=== PATIENT | female | born 1975 | race Hispanic/Latino ===

== ENCOUNTER 2018-08-05 16:35 | Emergency (ER) | payer SELFPAY ==
[2018-08-05 18:41] LABS: Absolute Lymphocytes (CBC) 2.9 K/uL (0.7-4.9); Absolute Monocytes 0.5 K/uL (0.1-1.3); Absolute Neutrophil 7.8 K/uL (1.8-8.0); Basophils % 0.7 % (0-1.3); Eosinophils % 1.3 % (0-4.4); Lymphocytes % 25.3 % (15.3-44.8); MPV 10.1 fL (7.6-11.3); Monocytes % 4.6 % (3.3-12.3); RBC Red Blood Cell Count 4.81 M/uL (3.86-4.86)
[2018-08-05 18:59] LABS: ALT/SGPT 21 U/L (12-78); AST/SGOT 12 U/L (15-37); Albumin 3.8 g/dL (3.4-5.0); Alkaline Phosphatase 98 U/L (45-117); BUN Blood Urea Nitrogen 21 mg/dL (7-18); Bicarbonate 30 mmol/L (21-32); Bilirubin Direct < 0.1 mg/dL (0-0.2); Bilirubin Total 0.3 mg/dL (0.2-1.0); Glucose Level 118 mg/dL (74-106); Lipase 159 U/L (73-393); Potassium 3.3 mmol/L (3.5-5.1); Protein, Total 8.3 g/dL (6.4-8.2); Sodium Level 142 mmol/L (136-145)
--- NOTE | 2018-08-05 19:26 | RAD REPORT ---
EXAM DESCRIPTION: CT - Abdomen Pelvis W Contrast - 08/05/2018 7:19 pm CLINICAL HISTORY: Right lower quadrant pain, history of cholecystectomy and tubal ligation COMPARISON: CT June 2016 TECHNIQUE: Biphasic, helical CT imaging of the abdomen and pelvis was performed following 100 ml non -ionic IV contrast. Oral contrast was given. All CT scans are performed using dose optimization technique as appropriate and may include automated exposure control or mA/KV adjustment according to patient size. FINDINGS: No suspicious findings in the lung bases. The liver, spleen, and pancreas show no focal findings. Liver attenuation is borderline or mildly fat ty infiltrated. Cholecystectomy clips are present. No biliary tree dilatation. Symmetric renal function is seen with no hydronephrosis or suspicious renal mass. No pyelonephritis o r acute parenchymal process. No bladder abnormalities. No adrenal abnormalities. Uterus and ovaries s how no suspicious findings. There may be a small fibroid in the fundus of the uterus. No active proce ss seen. No dilated bowel loops or bowel wall thickening. Appendix is normal. No free air, free fluid or infla mmatory stranding. No hernia, mass or bulky lymphadenopathy. No suspicious bony findings. IMPRESSION: Contrast enhanced CT abdomen and pelvis showing no significant or suspicious finding. N o abnormality seen to explain right lower quadrant symptoms.
[2018-08-05 19:37] LABS: Urine Blood NEGATIVE (NEG); Urine Glucose NEGATIVE (NEG); Urine Protein NEGATIVE (NEG); Urine pH 7.5 (5.0-7.0)
--- NOTE | 2018-08-05 20:44 | EDPHYS ---
Physician Documentation [facility] Name: Soraida Zaragoza Age: 42 yrs Sex: Female : 1975 Arrival Date: 08/05/2018 Time: 16:38 Bed 20 Private MD: ED Physician Charli Clark HPI: 08/05 17:58 This 42 yrs old Female presents to ER via Ambulatory with complaints of Pelvic jmm Pain. 17:58 The patient presents with abdominal pain in the lower abdomen. Onset: The jmm symptoms/episode began/occurred gradually, 1 day(s) ago. The symptoms. This is a 42 year old female with no chronic medical conditions that presents to the ED with complaints of lower abdominal pain and pelvic pain. Patient states the pain is worsened with walking and radiates across her pelvis. Denies vaginal bleeding. Denies vomiting, denies diarrhea. . Historical: - Allergies: 16:40 No Known Allergies; sg - Home Meds: 16:40 None [Active]; sg - PMHx: 16:43 None; sg - PSHx: 16:40 Cholecystectomy; Tubal ligation; sg - Immunization history:: Adult Immunizations up to date. - Social history:: Smoking status: Patient/guardian denies using tobacco. - Ebola Screening: : Patient negative for fever greater than or equal to 101.5 degrees Fahrenheit, and additional compatible Ebola Virus Disease symptoms Patient denies exposure to infectious person Patient denies travel to an Ebola-affected area in the 21 days before illness onset No symptoms or risks identified at this time. ROS: 17:58 Constitutional: Negative for fever, chills, and weight loss, Cardiovascular: Negative jmm for chest pain, palpitations, and edema, Respiratory: Negative for shortness of breath, cough, wheezing, and pleuritic chest pain. 17:58 Abdomen/GI: Positive for abdominal pain. 17:58 : Positive for pelvic pain. 17:58 All other systems are negative. Exam: 17:58 Constitutional: This is a well developed, well nourished patient who is awake, alert, jmm and in no acute distress. Head/Face: atraumatic. Eyes: EOMI, no conjunctival erythema appreciated ENT: Moist Mucus Membranes Neck: Trachea midline, Supple Chest/axilla: Normal chest wall appearance and motion. Cardiovascular: Regular rate and rhythm. No edema appreciated Respiratory: Normal respirations, no respiratory distress appreciated 17:58 Abdomen/GI: Inspection: abdomen appears normal, Bowel sounds: normal, Palpation: soft, mild abdominal tenderness, in the suprapubic area, right lower quadrant and left lower quadrant. 17:58 Back: ROM is normal. 17:58 Musculoskeletal/extremity: ROM: intact in all extremities. 17:58 Skin: Appearance: Color: normal in color. 17:58 Neuro: Orientation: is normal, Mentation: is normal, Memory: is normal. 17:58 Psych: Behavior/mood is pleasant, cooperative. Vital Signs: 16:39 Pulse 80; Resp 17; Temp 98.2; Pulse Ox 100% ; Weight 82.1 kg; Height 4 ft. 11 in. sg (149.86 cm); Pain 8/10; 16:40 BP 152 / 92; sg 17:53 BP 145 / 80; Pulse 71; Resp 18; Pulse Ox 100% on R/A; aj1 18:42 BP 141 / 91; Pulse 74; Resp 18; Pulse Ox 100% ; aj1 19:30 BP 138 / 88; Pulse 73; Resp 16; Pulse Ox 100% on R/A; jb4 20:30 BP 151 / 78; Pulse 63; Resp 16; Pulse Ox 100% on R/A; jb4 16:39 Body Mass Index 36.56 (82.10 kg, 149.86 cm) sg MDM: 17:58 Patient medically screened. [facility] 20:42 Data reviewed: vital signs, nurses notes. Counseling: I had a detailed discussion with mark the patient and/or guardian regarding: the historical points, exam findings, and any diagnostic results supporting the discharge/admit diagnosis, radiology results, the need for outpatient follow up, to return to the emergency department if symptoms worsen or persist or if there are any questions or concerns that arise at home. ED course: Imaging studies negative. I discussed with the patient the need for further evaluation by NURSE TECH. Patient is otherwise given strict return precautions. patient understood and agrees with the plan of care. . 08/05 17:04 Order name: Urine Dipstick--Ancillary (enter results); Complete Time: 19:38 bd 08/05 17:04 Order name: Urine --Ancillary (enter results); Complete Time: 19:38 bd 08/05 17:59 Order name: Basic Metabolic Panel; Complete Time: 19:02 [facility] 08/05 17:59 Order name: CBC with Diff; Complete Time: 19:02 [facility] 08/05 17:59 Order name: Creatinine for Radiology; Complete Time: 19:02 [facility] 08/05 17:59 Order name: Hepatic Function; Complete Time: 19:02 [facility] 08/05 17:59 Order name: Lipase; Complete Time: 19:02 [facility] 08/05 17:59 Order name: IV Saline Lock; Complete Time: 18:27 [facility] 08/05 17:59 Order name: Labs collected and sent; Complete Time: 18:28 [facility] 08/05 17:59 Order name: CT Abd/Pelvis - W/Contrast; Complete Time: 19:34 [facility] 08/05 19:38 Order name: US Pelvis Complete [facility] Administered Medications: No medications were administered Disposition: 08/06 18:56 Co-signature as Attending Physician, Charli Clark MD I agree with the assessment and kdr plan of care. Disposition: 08/05/18 20:43 Discharged to Home. Impression: Abdominal and pelvic pain. - Condition is Stable. - Discharge Instructions: Pelvic Pain, Female. - Prescriptions for Ibuprofen 800 mg Oral Tablet - take 1 tablet by ORAL route every 8 hours As needed take with food; 30 tablet. - Medication Reconciliation Form, Thank You Letter, Antibiotic Education, Prescription Opioid Use form. - Follow up: Private Physician; When: 2 - 3 days; Reason: Recheck today's complaints, Continuance of care, Re-evaluation by your physician. Signatures: Dispatcher [employer] EDVictoriano Cabrera RN RN Charli Clark MD MD kdr Mickail, Joel, PA PA jmm Bryson, James RN RN jb4 Corrections: (The following items were deleted from the chart) 08/05 20:58 20:43 08/05/2018 20:43 Discharged to Home. Impression: Abdominal and pelvic pain. jb4 Condition is Stable. Forms are Medication Reconciliation Form, Thank You Letter, Antibiotic Education, Prescription Opioid Use. Follow up: Private Physician; When: 2 - 3 days; Reason: Recheck today's complaints, Continuance of care, Re-evaluation by your physician. [facility]
--- NOTE | 2018-08-05 20:44 | ER ---
Nurse's Notes [facility] Name: Soraida Zaragoza Age: 42 yrs Sex: Female : 1975 Arrival Date: 08/05/2018 Time: 16:38 Bed 20 Private MD: Diagnosis: Abdominal and pelvic pain Presentation: 08/05 16:42 Presenting complaint: Patient states: Right side lower quadrant abd pain described as sg sharp and stabbing that is worsened with activity and walking per the pt, pt reports that even standing at work today caused the pain to be much worse, pt denies any urinary symptoms at this time. Transition of care: patient was not received from another setting of care. Onset of symptoms was August 05, 2018. Risk Assessment: Do you want to hurt yourself or someone else? Patient reports no desire to harm self or others. Initial Sepsis Screen: Does the patient meet any 2 criteria? No. Patient's initial sepsis screen is negative. Does the patient have a suspected source of infection? Yes: Acute abdominal pain. Care prior to arrival: None. 16:42 Method Of Arrival: Ambulatory sg 16:42 Acuity: MIKAEL 3 sg Historical: - Allergies: 16:40 No Known Allergies; sg - Home Meds: 16:40 None [Active]; sg - PMHx: 16:43 None; sg - PSHx: 16:40 Cholecystectomy; Tubal ligation; sg - Immunization history:: Adult Immunizations up to date. - Social history:: Smoking status: Patient/guardian denies using tobacco. - Ebola Screening: : Patient negative for fever greater than or equal to 101.5 degrees Fahrenheit, and additional compatible Ebola Virus Disease symptoms Patient denies exposure to infectious person Patient denies travel to an Ebola-affected area in the 21 days before illness onset No symptoms or risks identified at this time. Screenin:53 Abuse screen: Denies threats or abuse. Denies injuries from another. Nutritional aj1 screening: No deficits noted. Tuberculosis screening: No symptoms or risk factors identified. 19:00 Fall Risk IV access (20 points). Total Peters Fall Scale indicates No Risk (0-24 pts). jb4 Assessment: 17:53 General: Appears in no apparent distress. uncomfortable, Behavior is calm, cooperative, aj1 appropriate for age. Pain: Complains of pain in right inguinal area and right iliac crest Pain does not radiate. Pain currently is 8 out of 10 on a pain scale. Quality of pain is described as sharp, stabbing, Aggravated by increased activity. Neuro: Level of Consciousness is awake, alert, obeys commands, Oriented to person, place, time, situation. Cardiovascular: Patient's skin is warm and dry. Respiratory: Airway is patent Respiratory effort is even, unlabored, Respiratory pattern is regular, symmetrical. GI: Abdomen is non-distended, Bowel sounds present X 4 quads. Abd is soft and non tender X 4 quads. Patient currently denies diarrhea, nausea, vomiting. : Reports urinary frequency, Denies burning with urination. EENT: No signs and/or symptoms were reported regarding the EENT system. Derm: No signs and/or symptoms reported regarding the dermatologic system. Skin is pink, warm \T\ dry. normal. Musculoskeletal: No signs and/or symptoms reported regarding the musculoskeletal system. Circulation, motion, and sensation intact. 18:42 Reassessment: Patient appears in no apparent distress at this time. No changes from aj1 previously documented assessment. Patient and/or family updated on plan of care and expected duration. Pain level reassessed. Patient is alert, oriented x 3, equal unlabored respirations, skin warm/dry/pink. 19:10 Reassessment: Patient appears in no apparent distress at this time. Patient and/or jb4 family updated on plan of care and expected duration. Pain level reassessed. Patient is alert, oriented x 3, equal unlabored respirations, skin warm/dry/pink. 20:00 Reassessment: Patient appears in no apparent distress at this time. Patient and/or jb4 family updated on plan of care and expected duration. Pain level reassessed. Patient is alert, oriented x 3, equal unlabored respirations, skin warm/dry/pink. 20:56 Reassessment: Patient appears in no apparent distress at this time. Patient and/or jb4 family updated on plan of care and expected duration. Pain level reassessed. Patient is alert, oriented x 3, equal unlabored respirations, skin warm/dry/pink. Vital Signs: 16:39 Pulse 80; Resp 17; Temp 98.2; Pulse Ox 100% ; Weight 82.1 kg; Height 4 ft. 11 in. sg (149.86 cm); Pain 8/10; 16:40 BP 152 / 92; sg 17:53 BP 145 / 80; Pulse 71; Resp 18; Pulse Ox 100% on R/A; aj1 18:42 BP 141 / 91; Pulse 74; Resp 18; Pulse Ox 100% ; aj1 19:30 BP 138 / 88; Pulse 73; Resp 16; Pulse Ox 100% on R/A; jb4 20:30 BP 151 / 78; Pulse 63; Resp 16; Pulse Ox 100% on R/A; jb4 16:39 Body Mass Index 36.56 (82.10 kg, 149.86 cm) ED Course: 16:38 Patient arrived in ED. as 16:39 Arm band placed on. 16:43 Triage completed. 17:28 Angeline Marquis, RN is Primary Nurse. [facility] 17:53 Patient has correct armband on for positive identification. Bed in low position. Call 1 light in reach. Side rails up X 1. 17:53 No provider procedures requiring assistance completed. [facility] 17:54 Jeffrey Byers PA is PHCP. [facility] 17:54 Charli Clark MD is Attending Physician. [facility] 18:00 Radiology exam delayed due to lab results not completed at this time. (BUN/Creatinine). [facility] 18:27 Radiology exam delayed due to lab results not completed at this time. (BUN/Creatinine). [facility] 18:28 Inserted saline lock: 22 gauge in right forearm, using aseptic technique. [facility] 18:28 Initial lab(s) drawn, by de, sent to lab. Inserted saline lock: [address] [facility] antecubital area, using aseptic technique. Blood collected. 18:53 Radiology exam delayed due to lab results not completed at this time. (BUN/Creatinine). 2 19:00 Pulse ox on. NIBP on. jb4 19:[address] via wheelchair. 2 19:19 CT Abd/Pelvis - W/Contrast In Process Unspecified. EDMS 19:43 Note: called an spoke to nurse. nurse will give patient water to fill bladder. . aa4 20:45 Pelvis Complete In Process Unspecified. EDMS 20:58 IV discontinued, intact, bleeding controlled, No redness/swelling at site. Pressure jb4 dressing applied. Administered Medications: No medications were administered Outcome: 20:43 Discharge ordered by . jmm 20:58 Discharged to home ambulatory. jb4 20:58 Condition: stable 20:58 Discharge instructions given to patient, Instructed on discharge instructions, follow up and referral plans. medication usage, Demonstrated understanding of instructions, follow-up care, medications, Prescriptions given X 1. 20:58 Patient left the ED. jb4 Signatures: Dispatcher [employer] EDAngeline Palmer RN RN aj1 Victoriano Mata RN Jeffrey Pelaez PA PA jmm Martinez, Amelia as Frazier, Amanda aa4 Bryson, James, RN RN jb4 Parish Chung Victoria 2
--- NOTE | 2018-08-05 21:04 | RAD REPORT ---
EXAM DESCRIPTION: US - Pelvis Complete - 08/05/2018 8:46 pm CLINICAL HISTORY: Pelvic pain COMPARISON: July 2007 TECHNIQUE: Transabdominal pelvic sonography was performed. FINDINGS: Endometrium is 5 mm in thickness. No endometrial mass or polyp. No myometrial mass is iden tifiable. Uterus is 11.0 x 5.0 x 6.2 cm. No myometrial mass. No fluid in the cul-de-sac. Both ovaries are identifiable. Doppler evaluation shows normal blood flow pattern. No dominant solid or cystic ovarian or adnexal finding. IMPRESSION: Negative transabdominal pelvic ultrasound.
== END 2018-08-05 20:58 | disposition home or self-care (01) ==
LOC: ER 16:35
DX: R10.2 Pelvic and perineal pain (principal)
CPT/HCPCS: 36415; 74177; 76856; 80048; 80076; 81003; 81025; 83690; 85025; 99284; Q9967

== ENCOUNTER 2019-04-16 10:55 | Emergency (ER) | payer SELFPAY ==
[2019-04-16 12:09] LABS: Absolute Lymphocytes (CBC) 2.1 K/uL (0.7-4.9); Basophils % 0.7 % (0-1.3); Hematocrit 38.7 % (36.0-45.0); MPV 10.2 fL (7.6-11.3); RBC Red Blood Cell Count 4.61 M/uL (3.86-4.86)
[2019-04-16 12:12] LABS: Protime INR 1.01
[2019-04-16 12:19] LABS: Urine Bacteria 20-50 /HPF (<20)
[2019-04-16 12:20] LABS: Urine Culture Reflex Order NOT NEEDED
[2019-04-16 12:29] LABS: ALT/SGPT 23 U/L (12-78); AST/SGOT 12 U/L (15-37); Albumin 3.6 g/dL (3.4-5.0); Alkaline Phosphatase 100 U/L (45-117); BUN Blood Urea Nitrogen 12 mg/dL (7-18); Bicarbonate 30 mmol/L (21-32); Bilirubin Direct < 0.1 mg/dL (0-0.2); Bilirubin Total 0.4 mg/dL (0.2-1.0); Glucose Level 112 mg/dL (74-106); Magnesium 2.3 mg/dL (1.8-2.4); NT PRO-BNP 25 pg/mL (<125); Potassium 3.4 mmol/L (3.5-5.1); Sodium Level 141 mmol/L (136-145); Troponin (Emerg Dept Use Only) < 0.02 ng/mL (0.0-0.045)
[2019-04-16 12:42] LABS: Urine Blood TRACE (NEG); Urine Glucose NEGATIVE (NEG); Urine Protein TRACE (NEG); Urine Specific Gravity 1.025 (1.005-1.030)
--- NOTE | 2019-04-16 12:47 | RAD REPORT ---
EXAM DESCRIPTION: RAD - Chest Single View - 04/16/2019 12:27 pm CLINICAL HISTORY: Chest pain COMPARISON: June 2016 TECHNIQUE: AP portable chest image was obtained 1212 hours . FINDINGS: Lungs are clear. Heart and vasculature are normal. No measurable pleural effusion and no p neumothorax. No acute bony abnormality seen. No acute aortic findings suspected. IMPRESSION: No acute cardiopulmonary process.
--- NOTE | 2019-04-16 13:41 | ER ---
Nurse's Notes [facility] Name: Soraida Zaragoza Age: 43 yrs Sex: Female : 1975 Arrival Date: 04/16/2019 Time: 10:58 Bed 17 Private MD: None, None Diagnosis: Chest pain, unspecified;Lower abdominal pain, unspecified Presentation: 04/16 11:20 Presenting complaint: Patient states: chest pain described as tightness and sharp since iw waking this morning at 0800, constant, also has LLQ and left flank pain described as sharp X 2 days, intermittent, +nausea, denies vomiting/diarrhea. Transition of care: patient was not received from another setting of care. Onset of symptoms was April 16, 2019. Risk Assessment: Do you want to hurt yourself or someone else? Patient reports no desire to harm self or others. Initial Sepsis Screen: Does the patient meet any 2 criteria? No. Patient's initial sepsis screen is negative. Does the patient have a suspected source of infection? No. Patient's initial sepsis screen is negative. Care prior to arrival: None. 11:20 Method Of Arrival: Ambulatory iw 11:20 Acuity: MIKAEL 3 iw TUBE TELLER: 11:22 LMP 04/04/2019 iw Historical: - Allergies: 11:22 No Known Allergies; iw - Home Meds: 11:22 None [Active]; iw - PMHx: 11:22 None; iw - PSHx: 11:22 Cholecystectomy; Tubal ligation; iw - Immunization history:: Adult Immunizations not up to date. - Social history:: Smoking status: Patient/guardian denies using tobacco. - Ebola Screening: : Patient negative for fever greater than or equal to 101.5 degrees Fahrenheit, and additional compatible Ebola Virus Disease symptoms Patient denies exposure to infectious person Patient denies travel to an Ebola-affected area in the 21 days before illness onset No symptoms or risks identified at this time. Screenin:40 Abuse screen: Denies threats or abuse. Nutritional screening: No deficits noted. em Tuberculosis screening: No symptoms or risk factors identified. Fall Risk None identified. Assessment: 11:40 General: Appears in no apparent distress. comfortable, Behavior is calm, cooperative, em appropriate for age, Denies fever. Pain: Complains of pain in left lower quadrant and chest Pain radiates to right scapular area and chest Quality of pain is described as pressure, Pain began this morning. Neuro: Level of Consciousness is awake, alert, obeys commands, Oriented to person, place, time, situation, Appropriate for age. Cardiovascular: Capillary refill < 3 seconds Patient's skin is warm and dry. Rhythm is sinus rhythm. Respiratory: Airway is patent Respiratory effort is even, unlabored, Respiratory pattern is regular, symmetrical. GI: Abdomen is flat, Abd is soft and non tender X 4 quads. Reports nausea, Patient currently denies constipation, diarrhea, vomiting. : Denies burning with urination, urinary frequency. Derm: Skin is intact, is healthy with good turgor, Skin is pink, warm \T\ dry. Musculoskeletal: Capillary refill < 3 seconds, Range of motion: intact in all extremities. 12:57 Reassessment: Patient appears in no apparent distress at this time. Patient and/or em family updated on plan of care and expected duration. Pain level reassessed. Patient is alert, oriented x 3, equal unlabored respirations, skin warm/dry/pink. 14:24 Reassessment: Patient appears in no apparent distress at this time. Patient and/or em family updated on plan of care and expected duration. Pain level reassessed. Patient is alert, oriented x 3, equal unlabored respirations, skin warm/dry/pink. Vital Signs: 11:22 BP 186 / 101; Pulse 79; Resp 16; Temp 98.1(O); Pulse Ox 100% on R/A; Weight 86.64 kg; iw Height 4 ft. 11 in. (149.86 cm); Pain 8/10; 12:00 BP 158 / 86; Pulse 73; Resp 18; Pulse Ox 100% on R/A; Pain 8/10; em 13:14 BP 157 / 79; Pulse 74; Resp 18; Pulse Ox 99% on R/A; em 14:19 BP 151 / 77; Pulse 74; Resp 18; Pulse Ox 99% on R/A; em 11:22 Body Mass Index 38.58 (86.64 kg, 149.86 cm) iw ED Course: 10:58 Patient arrived in ED. mr 10:58 None, None is Private Physician. mr 11:17 [facility]C [facility]. snw 11:17 Nelson Santillan MD is Attending Physician. snw 11:22 Triage completed. iw 11:22 Arm band placed on. iw 11:27 EKG done, by ED staff, reviewed by Hannah DOOLEY. 3 11:39 Daren Villa LVN is Primary Nurse. em 11:40 Patient has correct armband on for positive identification. Placed in gown. Bed in low em position. Call light in reach. Side rails up X2. Adult w/ patient. curriculum and assessment coordinator on. Pulse ox on. NIBP on. 11:40 Patient maintains SpO2 saturation greater than 95% on room air. em 11:55 Initial lab(s) drawn, by me, sent to lab. Inserted saline lock: 22 gauge in right em antecubital area, using aseptic technique. Blood collected. 12:27 X-ray completed. Portable x-ray completed in exam room. Patient tolerated procedure sw well. 14:18 No provider procedures requiring assistance completed. IV discontinued, intact, em bleeding controlled, No redness/swelling at site. Pressure dressing applied. Administered Medications: 14:10 Drug: TORadol - Ketorolac 15 mg Route: IVP; Site: right antecubital; tw2 14:23 Follow up: Response: No adverse reaction em Outcome: 13:40 Discharge ordered by MD. snw 14:18 Discharged to home ambulatory, with family. em 14:18 Condition: good 14:18 Discharge instructions given to patient, family, Instructed on discharge instructions, follow up and referral plans. medication usage, Demonstrated understanding of instructions, follow-up care, medications, Prescriptions given X 1. 14:24 Patient left the ED. em Signatures: Hannah Terry FNP-C FNP-[facility] Awilda Boone Daren Villa, WHEEL CLEANER WHEEL CLEANER em Christie Baxter, RN RN iw Alexandra Woodard Angle Anderson RN RN 2 Matilde Zhao 3
--- NOTE | 2019-04-16 13:42 | EDPHYS ---
Physician Documentation [facility] Name: Soraida Zaragoza Age: 43 yrs Sex: Female : 1975 Arrival Date: 04/16/2019 Time: 10:58 Bed 17 Private MD: None, None ED Physician Nelson Santillan HPI: 04/16 11:39 This 43 yrs old Female presents to ER via Ambulatory with complaints of Chest snw Pain, Flank Pain. 11:39 Onset: The symptoms/episode began/occurred suddenly, and became persistent. Associated snw signs and symptoms: Pertinent positives: abdominal pain, chest pain. Modifying factors: The patient symptoms are alleviated by nothing, the patient symptoms are aggravated by nothing. The patient has not experienced similar symptoms in the past. The patient has not recently seen a physician. 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 - Social history:: Smoking status: Patient/guardian denies using tobacco. - Ebola Screening: : Patient negative for fever greater than or equal to 101.5 degrees Fahrenheit, and additional compatible Ebola Virus Disease symptoms Patient denies exposure to infectious person Patient denies travel to an Ebola-affected area in the 21 days before illness onset No symptoms or risks identified at this time. ROS: 11:38 Eyes: Negative for injury, pain, redness, and discharge, ENT: Negative for injury, snw pain, and discharge, Neck: Negative for injury, pain, and swelling, Respiratory: Negative for shortness of breath, cough, wheezing, and pleuritic chest pain, Back: Negative for injury and pain, : Negative for injury, bleeding, discharge, and swelling, MS/Extremity: Negative for injury and deformity, Skin: Negative for injury, rash, and discoloration, Neuro: Negative for headache, weakness, numbness, tingling, and seizure. 11:38 Cardiovascular: Positive for chest pain, of the anterior aspect of right upper chest and anterior aspect of left upper chest. 11:38 Abdomen/GI: Positive for abdominal cramps, of the left lower quadrant. Exam: 11:37 Constitutional: This is a well developed, well nourished patient who is awake, alert, snw and in no acute distress. Head/Face: Normocephalic, atraumatic. Eyes: Pupils equal round and reactive to light, extra-ocular motions intact. Lids and lashes normal. Conjunctiva and sclera are non-icteric and not injected. Cornea within normal limits. Periorbital areas with no swelling, redness, or edema. ENT: Nares patent. No nasal discharge, no septal abnormalities noted. Tympanic membranes are normal and external auditory canals are clear. Oropharynx with no redness, swelling, or masses, exudates, or evidence of obstruction, uvula midline. Mucous membranes moist. Neck: Trachea midline, no thyromegaly or masses palpated, and no cervical lymphadenopathy. Supple, full range of motion without nuchal rigidity, or vertebral point tenderness. No Meningismus. Chest/axilla: Normal chest wall appearance and motion. Nontender with no deformity. No lesions are appreciated. 11:37 Respiratory: Lungs have equal breath sounds bilaterally, clear to auscultation and percussion. No rales, rhonchi or wheezes noted. No increased work of breathing, no retractions or nasal flaring. Abdomen/GI: Soft, non-tender, with normal bowel sounds. No distension or tympany. No guarding or rebound. No evidence of tenderness throughout. Back: No spinal tenderness. No costovertebral tenderness. Full range of motion. Skin: Warm, dry with normal turgor. Normal color with no rashes, no lesions, and no evidence of cellulitis. MS/ Extremity: Pulses equal, no cyanosis. Neurovascular intact. Full, normal range of motion. Neuro: Awake and alert, GCS 15, oriented to person, place, time, and situation. Cranial nerves II-XII grossly intact. Motor strength 5/5 in all extremities. Sensory grossly intact. Cerebellar exam normal. Normal gait. Psych: Awake, alert, with orientation to person, place and time. Behavior, mood, and affect are within normal limits. 11:37 Cardiovascular: Rate: normal, Rhythm: regular, Pulses: no pulse deficits are appreciated, Heart sounds: normal. 11:37 ECG was reviewed by the Attending Physician. Vital Signs: 11:22 BP 186 / 101; Pulse 79; Resp 16; Temp 98.1(O); Pulse Ox 100% on R/A; Weight 86.64 kg; iw Height 4 ft. 11 in. (149.86 cm); Pain 8/10; 12:00 BP 158 / 86; Pulse 73; Resp 18; Pulse Ox 100% on R/A; Pain 8/10; em 13:14 BP 157 / 79; Pulse 74; Resp 18; Pulse Ox 99% on R/A; em 14:19 BP 151 / 77; Pulse 74; Resp 18; Pulse Ox 99% on R/A; em 11:22 Body Mass Index 38.58 (86.64 kg, 149.86 cm) iw MDM: 11:19 Patient medically screened. snw 13:42 Data reviewed: vital signs, nurses notes. Data interpreted: Pulse oximetry: on room air snw is 99 %. Interpretation: normal. Counseling: I had a detailed discussion with the patient and/or guardian regarding: the historical points, exam findings, and any diagnostic results supporting the discharge/admit diagnosis, the presence of at least one elevated blood pressure reading (>120/80) during this emergency department visit, lab results, radiology results, the need for outpatient follow up, to return to the emergency department if symptoms worsen or persist or if there are any questions or concerns that arise at home. Response to treatment: the patient's symptoms have mildly improved after treatment. Special discussion: Based on the patient's Hx, exam, and Dx evaluation, there is no indication for emergent surgery or inpatient Tx. It is understood by the patient/guardian that if the Sx's persist or worsen they need to return immediately for re-evaluation. I have referred the patient to see his PCP for further evaluation of high blood pressure. Based on the history and exam findings, there is no indication for further emergent testing or inpatient evaluation. I discussed with the patient/guardian the need to see the primary care provider for further evaluation of the symptoms. 04/16 11:37 Order name: Basic Metabolic Panel snw 04/16 11:37 Order name: CBC with Diff snw 04/16 11:37 Order name: LFT's snw 04/16 11:37 Order name: Magnesium snw 04/16 11:37 Order name: NT PRO-BNP snw 04/16 11:37 Order name: PT-INR snw 04/16 11:37 Order name: Troponin (emerg Dept Use Only) [facility] 04/16 11:37 Order name: Urine Culture sn 04/16 11:37 Order name: Urine Microscopic Only [facility] 04/16 11:51 Order name: Urine Dipstick--Ancillary (enter results) eb 04/16 11:51 Order name: Urine --Ancillary (enter results) eb 04/16 12:10 Order name: CBC with Automated Diff; Complete Time: 12:11 EDMS 04/16 12:13 Order name: Protime (+INR); Complete Time: 12:16 EDMS 04/16 12:21 Order name: Urine Microscopic Only; Complete Time: 12:26 EDMS 04/16 11:37 Order name: XRAY Chest (1 view) [facility] 04/16 11:37 Order name: EKG; Complete Time: 11:39 snw 04/16 11:37 Order name: Cardiac monitoring; Complete Time: 11:59 snw 04/16 11:37 Order name: EKG - Nurse/Tech; Complete Time: 11:59 snw 04/16 11:37 Order name: IV Saline Lock; Complete Time: 11:59 snw 04/16 11:37 Order name: Labs collected and sent; Complete Time: 11:59 snw 04/16 11:37 Order name: O2 Per Protocol; Complete Time: 11:59 snw 04/16 12:29 Order name: Basic Metabolic Panel; Complete Time: 12:30 EDMS 04/16 12:29 Order name: Liver (Hepatic) Function; Complete Time: 12:30 EDMS 04/16 12:29 Order name: Troponin (Emerg Dept Use Only); Complete Time: 12:30 EDMS 04/16 12:29 Order name: NT PRO-BNP; Complete Time: 12:30 EDMS 04/16 12:29 Order name: Magnesium; Complete Time: 12:30 EDMS 04/16 12:42 Order name: Urine --Ancillary; Complete Time: 13:03 EDMS 04/16 12:42 Order name: Urine Dipstick-Ancillary; Complete Time: 13:03 EDMS 04/16 13:23 Order name: RAD; Complete Time: 13:23 EDMS 04/16 11:37 Order name: O2 Sat Monitoring; Complete Time: 12:00 snw 04/16 11:37 Order name: Urine Test (obtain specimen); Complete Time: 11:59 snw 04/16 11:37 Order name: Urine Dipstick-Ancillary (obtain specimen); Complete Time: 11:59 snw Administered Medications: 14:10 Drug: TORadol - Ketorolac 15 mg Route: IVP; Site: right antecubital; tw2 14:23 Follow up: Response: No adverse reaction em Disposition: 04/17 13:33 Co-signature as Attending Physician, Nelson Santillan MD I agree with the assessment and [facility] plan of care. Disposition: 04/16/19 13:40 Discharged to Home. Impression: Chest pain, unspecified, Lower abdominal pain, unspecified. - Condition is Stable. - Discharge Instructions: Abdominal Pain, Adult, Nonspecific Chest Pain, Hypertension, Heat Therapy, Form - Blood Pressure Record Sheet. - Prescriptions for Bentyl 20 mg Oral Tablet - take 1 tablet by ORAL route every 6 hours As needed; 20 tablet. - Work release form, Medication Reconciliation Form, Thank You Letter, Antibiotic Education, Prescription Opioid Use form. - Follow up: Emergency Department; When: As needed; Reason: Worsening of condition. Follow up: Private Physician; When: 2 - 3 days; Reason: Recheck today's complaints, Continuance of care, Re-evaluation by your physician. Signatures: Dispatcher [employer] Nelson Mendez MD MD cha Therrien, Shelly, BIOMASS PLANT MANAGER-C BIOMASS PLANT MANAGER-Csnw Daren Villa, MILLER HEAD ASSISTANT WET PROCESS MILLER HEAD ASSISTANT WET PROCESS em Christie Baxter, MABEL MONROE Angle Anderson RN RN tw2 Corrections: (The following items were deleted from the chart) 04/16 14:24 13:40 04/16/2019 13:40 Discharged to Home. Impression: Chest pain, unspecified; Lower em abdominal pain, unspecified. Condition is Stable. Forms are Medication Reconciliation Form, Thank You Letter, Antibiotic Education, Prescription Opioid Use. Follow up: Emergency Department; When: As needed; Reason: Worsening of condition. Follow up: Private Physician; When: 2 - 3 days; Reason: Recheck today's complaints, Continuance of care, Re-evaluation by your physician. snw
[2019-04-16] MEDS ORDERED: KETOROLAC 30 MG/ML INJ ONE (13:57)
[2019-04-16 14:35] VITALS: TEMP 98.1
[2019-04-16 14:36] VITALS: O2SAT 99
[2019-04-16 14:38] VITALS: BP 151/77
--- NOTE | 2019-04-17 12:47 | EKG ---
Test Date: 2019-04-16 Test Time: 11:27:34 Employment Programs Analyst: BECKY MEASUREMENT RESULTS: Intervals: Rate: 69 AL: 132 QRSD: 78 QT: 390 QTc: 417 [place]: P: 16 AL: 132 QRS: 37 T: 25 INTERPRETIVE STATEMENTS: Normal sinus rhythm Normal ECG No previous ECG available for comparison Electronically Signed On 04-17-19 12:44:46 TRACK LAYING SUPERVISOR by Lionel Alvarado
== END 2019-04-16 14:24 | disposition home or self-care (01) ==
LOC: ER 10:55
DX: R10.30 Lower abdominal pain, unspecified (principal)
CPT/HCPCS: 36415; 71045; 80048; 80076; 81003; 81015; 81025; 83735; 83880; 84484; 85025; 85610; 87086; 87088; 93005; 96374; 99285

== ENCOUNTER 2021-05-19 16:17 | Emergency (ER) | payer SELFPAY ==
--- OUTSIDE RECORDS SUMMARY | 2021-05-19 16:19 | XMS REPORT | Continuity of Care Document ---
:1975 Author Organization [facility] t Address [address] [place] [address] Care Team Providers Name Role Phone Clark Haley Primary Care Physician Clark DIEZ Attending Clinician Unavailable Clark Haley Attending Clinician Payers Payer Name Policy Type Policy Number Effective Date Expiration Date S ource [employer] [place] [id number] 2020 00:00:00 WOMEN Problems Condition Condition Condition Status Onset Resolution Last Treating Co mments Source Name Details Category Date Date Treatment Clinician Date Essential Essential Disease Active Uni vers hypertensi hypertensi 5-06 [place] [address] [place] [address] History of History of Disease Active U nivers tubal tubal 4-22 ity of ligation ligation 00:00: [address] Well woman Well woman Disease Active U nivers exam exam 4-22 ity of 00:00: [address] Allergies, Adverse Reactions, Alerts Allergy Allergy Status Severity Reaction(s) Onset Inactive Treating Comm ents Source Name Type Date Date Clinician NO KNOWN Drug Active Univers ALLERGIE Class ity of S [facility] Social History Social Habit Start Date Stop Date Quantity Comments Source Exposure to Not sure [facility] SARS-CoV-2 [facility] (event) [place] Tobacco use and 2020-10-11 2020-10-11 Never used Universit y of exposure 00:00:00 00:00:00 [facility] Alcohol intake 2020-10-11 2020-10-11 Ex-drinker University 00:00:00 00:00:00 (finding) [facility] Sex Ass[birth year] At [birth year] Universit y of 00:00:00 00:00:00 [facility] Smoking Status Start Date Stop Date Source Never smoker [facility] Medications Ordered Filled Start Stop Current Ordering Indication Dosage Frequency Signature Comments Components Source Medication Medication Date Date Medication? Clinician (SIG) Name Name fluconazole 2020- No [id number] 150mg Take 1 Univers (DIFLUCAN) 10-11 tablet by it[place] 150 mg 00:00[place] 04[place] now for 1 Medical dose. Branch fluconazole No [id number] 150mg Take 1 Univers (DIFLUCAN) 10-11 tablet by it[place] of 150 mg 00:00: 04:[place] tablet [place] :00 now for 1 Medical dose. Branch fluconazole No Yeast 150mg Take 1 U nivers (DIFLUCAN) 10-11 infection tablet by ity of 150 mg 00:00: 04:59 [place] tablet 00 :00 vagina now for 1 Medica l dose. Branch fluconazole No Yeast 150mg Take 1 U nivers (DIFLUCAN) 10-11 infection tablet by ity of 150 mg 00:00: 04:59 [place] mouth [place] tablet 00 :00 vagina now for 1 Medica l dose. Branch No known No Univers medications [facility] No known No Univers medications [facility] No known No Univers medications [facility] Vital Signs Vital Name Observation Time Observation Value Comments Source Systolic blood 2020-10-11 20:18:00 145 mm[Hg] Univer sity [facility] Systolic blood 2020-10-11 20:18:00 145 mm[Hg] Univer sity [facility] Diastolic blood 2020-10-11 20:18:00 89 mm[Hg] Unive rsity [facility] Diastolic blood 2020-10-11 20:18:00 89 mm[Hg] Unive rsity [facility] Heart rate 2020-10-11 20:12:00 93 /min Universi ty [facility] Heart rate 2020-10-11 20:12:00 93 /min [facility]i [facility] Body temperature 2020-10-11 20:10:00 36.89 Josephine Univ ers[facility] Respiratory rate 2020-10-11 20:10:00 16 /min Univ [facility] Body height 2020-10-11 20:10:00 149.9 cm [facility] Body weight 2020-10-11 20:10:00 89.982 kg [facility] BMI 2020-10-11 20:10:00 40.07 kg/m2 [facility] Body temperature 2020-10-11 20:10:00 36.89 Josephine Univ ersity of [facility] Respiratory rate 2020-10-11 20:10:00 16 /min Univ [facility] Body height 2020-10-11 20:10:00 149.9 cm [facility] Body weight 2020-10-11 20:10:00 89.982 kg [facility] BMI 2020-10-11 20:10:00 40.07 kg/m2 [facility] Systolic blood 2020-10-11 20:18:00 145 mm[Hg] Univer sity of pressure [facility] Systolic blood 2020-10-11 20:18:00 145 mm[Hg] Univer sity of pressure [facility] Diastolic blood 2020-10-11 20:18:00 89 mm[Hg] Unive rsity of pressure [facility] Diastolic blood 2020-10-11 20:18:00 89 mm[Hg] Unive rsity of pressure [facility] Heart rate 2020-10-11 20:12:00 93 /min [facility] Heart rate 2020-10-11 20:12:00 93 /min [facility] Body temperature 2020-10-11 20:10:00 36.89 Josephine Univ [facility] Respiratory rate 2020-10-11 20:10:00 16 /min Univ [facility] Body height 2020-10-11 20:10:00 149.9 cm [facility] Body weight 2020-10-11 20:10:00 89.982 kg [facility] BMI 2020-10-11 20:10:00 40.07 kg/m2 Universi ty of [facility] Branch Body temperature 2020-10-11 20:10:00 36.89 Josephine Univ ersity of [facility] Respiratory rate 2020-10-11 20:10:00 16 /min Univ ersity of [facility] Body height 2020-10-11 20:10:00 149.9 cm [facility] [place] [facility] [place] Body weight 2020-10-11 20:10:00 89.982 kg [facility] BMI 2020-10-11 20:10:00 40.07 kg/m2 Universi ty of [facility] Systolic blood 2020-09-27 14:20:00 172 mm[Hg] Univer sity of pressure [facility] Diastolic blood 2020-09-27 14:20:00 94 mm[Hg] Unive rsity of pressure [facility] Heart rate 2020-09-27 14:20:00 88 /min Universi ty of [facility] Body temperature 2020-09-27 14:20:00 36.67 Josephine Univ ersity [facility] Respiratory rate 2020-09-27 14:20:00 16 /min [facility] ersity of [facility] Body height 2020-09-27 14:20:00 149.9 cm Universi ty of [facility] Body weight 2020-09-27 14:20:00 90.946 kg Universi ty of [facility] BMI 2020-09-27 14:20:00 40.50 kg/m2 Universi ty of [facility] Procedures This patient has no known procedures. Plan of Care Planned Activity Planned Date Details Comments Source Future Scheduled 2023-09-28 Screening for University of Test 00:00:00 malignant neoplasm [place] [facility] of cervix Branch (procedure) [code = 405319020] Future Scheduled 2023-09-28 Screening for University of Test 00:00:00 malignant neoplasm [place] [facility] of cervix [facility] (procedure) [code = 614705226] Future Scheduled 2021-10-08 Screening for University of Test 00:00:00 malignant neoplasm [place] [facility] of breast Branch (procedure) [code = [id number]] Future Scheduled 2021-10-08 Screening for University of Test 00:00:00 malignant neoplasm [place] [facility] of breast Branch (procedure) [code = [id number]] Future Scheduled 2021-09-27 DTaP,Tdap,and Td Postponed from Unive rsity of Test 00:00:00 Vaccines (11/24/1995 [place] [facility] Tdap) [code = (Alternative Branch DTaP,Tdap,and Td Guidelines) Vaccines (1 - Tdap)] Future Scheduled 2021-09-27 Depression University of Test 00:00:00 screening [place] [facility] (procedure) [code Branch = [id number]] Future Scheduled 2021-09-27 DTaP,Tdap,and Td Postponed from Unive rsity of Test 00:00:00 Vaccines (11/24/1995 [facility] Tdap) [code = (Alternative Branch DTaP,Tdap,and Td Guidelines) Vaccines (1 - Tdap)] Future Scheduled 2021-09-27 Depression University of Test 00:00:00 screening [place] [facility] (procedure) [code Branch = [id number]] Future Scheduled 2021-02-06 INFLUENZA VACCINE Univer sity of Test 00:00:00 (Season Ended) [place] [facility] [code = INFLUENZA Branch VACCINE (Season Ended)] Future Scheduled 2021-02-06 INFLUENZA VACCINE Univer sity of Test 00:00:00 (Season Ended) [place] [facility] [code = INFLUENZA Branch VACCINE (Season Ended)] Future Scheduled 1994 Hepatitis C University of Test 00:00:00 screening [place] [facility] (procedure) [code Branch = [id number]] Future Scheduled 1994 Hepatitis C University of Test 00:00:00 screening [place] [facility] (procedure) [code Branch = [id number]] Future Scheduled 1992 SARS-CoV-2 University of Test 00:00:00 (COVID-19) Vaccine [place] [facility] (1) [code = Branch SARS-CoV-2 (COVID-19) Vaccine (1)] Future Scheduled 1992 SARS-CoV-2 University of Test 00:00:00 (COVID-19) Vaccine [place] [facility] (1) [code = Branch SARS-CoV-2 (COVID-19) Vaccine (1)] Encounters Start End Encounter Admission Attending Care Care Encounter Source Date/Time Date/Time Type Type Clinicians Facility Department ID 2020-10-12 2020-10-12 Outpatient R CHARY [facility] [id number] Univers 15:15:00 15:15:00 JACK [id number] ity o [facility] 2020-10-12 2020-10-12 [facility] [id number] Univers 15:15:00 15:15:00 JACK odell o [facility] 2020-10-11 2020-10-11 Office [facility] [id number] Univers 14:55:37 15:42:33 Visit Jack Rodas PROTOCOL MANAGER [id number] ity of REGIONAL [id number] [place] as MATERNAL [id number] [facility] ical & CHILD [address] [place] [address] 2020-10-11 2020-10-11 [address] [facility] [id number] Univers 14:45:00 14:45:00 JACK [id number] demetrioy o [facility] 2020-10-11 2020-10-11 Outpatient R CHARY, [facility] [id number] Univers 14:45:00 14:45:00 JACK odell [facility] 2020-10-08 2020-10-08 [facility] [id number] Univers 06:54:15 23:59:00 Encounter Jack Rodas SPECIALTY [id number] ity of [facility] [id number] [place] [id number] [place] [address] [place] [address] 2020-10-08 2020-10-08 Outpatient R CHARY, [facility] [id number] Univers 11:00:00 11:00:00 JACK [id number] demetrioy o [facility] 2020-10-08 2020-10-08 [facility] [id number] Univers 00:00:00 00:00:00 JACK odell o [facility] 2020-10-08 2020-10-08 [facility] [id number] Univers 00:00:00 00:00:00 JACK cruz [facility] 2020-09-27 2020-09-27 Office RADHA Diez [id number] [facility] 09:03:17 10:14:12 Visit Jack Rodas PROTOCOL MANAGER [id number] [id number] [place] MATERNAL [id number] Med ical & CHILD [address] [place] [address] 2020-09-27 2020-09-27 Outpatient R CH[facility] [id number] [facility] 09:15:00 09:15:00 JACK cruz [facility] Results This patient has no known results.
[2021-05-19] MEDS ORDERED: LIDOCAINE 1% MPF 5 ML VIAL ONE (16:48)
[2021-05-19] MEDS ORDERED: TETANUS & DIPHTHERIA TOX,ADULT 0.5 ML VIAL ONE (16:49)
--- NOTE | 2021-05-19 17:28 | ER ---
Nurse's Notes [facility] Name: Soraida Zaragoza Age: 45 yrs Sex: Female : 1975 Arrival Date: 05/19/2021 Time: 16:18 Bed 9 Private MD: Diagnosis: Laceration without foreign body of right little finger without damage to nail, initial encounter Presentation: 05/19 16:45 Chief complaint: Patient states: was washing dishes and accidently sliced her right iw pinky finger with a knife. Coronavirus screen: At this time, the client does not indicate any symptoms associated with coronavirus-19. Ebola Screen: Patient negative for fever greater than or equal to 101.5 degrees Fahrenheit, and additional compatible Ebola Virus Disease symptoms Patient denies exposure to infectious person. Patient denies travel to an Ebola-affected area in the 21 days before illness onset. No symptoms or risks identified at this time. Initial Sepsis Screen: Does the patient meet any 2 criteria? No. Patient's initial sepsis screen is negative. Does the patient have a suspected source of infection? No. Patient's initial sepsis screen is negative. Risk Assessment: Do you want to hurt yourself or someone else? Patient reports no desire to harm self or others. Onset of symptoms was May 19, 2021. 16:45 Method Of Arrival: Ambulatory iw 16:45 Acuity: MIKAEL 4 iw Historical: - Allergies: 16:46 No Known Allergies; iw - Home Meds: 16:46 Metformin Oral [Active]; iw - PMHx: 16:46 Hypertensive disorder; Diabetes mellitus; iw - Immunization history:: Last tetanus immunization: unknown. Vital Signs: 16:45 BP 143 / 96; Pulse 85; Resp 16; Pulse Ox 99% ; Weight 84.37 kg; Height 4 ft. 11 in. iw (149.86 cm); 16:45 Body Mass Index 37.57 (84.37 kg, 149.86 cm) iw ED Course: 16:18 Patient arrived in ED. am2 16:45 Jorje Stratton NP is PHCP. pm1 16:45 Isamar Marroquin MD is Attending Physician. pm1 16:46 Triage completed. iw 16:46 Arm band placed on. iw 16:47 Christie Baxter, MABEL is Primary Nurse. iw Administered Medications: 17:42 Drug: Lidocaine (1 %) 5 ml Volume: 5 ml; Route: Infiltration; 17:42 Drug: Tetanus-Diphtheria Toxoid Adult 0.5 ml {Child Care Provider: [employer]. Exp: 10/17/2022. Lot #: [id number]. } Route: IM; Site: left deltoid; 18:00 Follow up: Response: No adverse reaction iw Outcome: 17:26 Discharge ordered by . pm1 17:44 Patient left the ED. Signatures: Christie Baxter RN RN Jorje Stratton NP METAL [employer]TER pm1 Rosmery Bustamante
--- NOTE | 2021-05-19 17:28 | EDPHYS ---
Physician Documentation [facility] Name: Soraida Zaragoza Age: 45 yrs Sex: Female : 1975 Arrival Date: 05/19/2021 Time: 16:18 Bed 9 Private MD: ED Physician Ismaar Marroquin HPI: 05/19 16:46 This 45 yrs old Female presents to ER via Ambulatory with complaints of Finger pm1 Injury. 16:46 The patient or guardian reports a laceration, irregular, 1 cm(s). The complaints affect pm1 the palmar aspect of distal phalanx of right little finger. Context: The problem was sustained at home, resulted from Cut by clean knife while washing cutting board. Onset: The symptoms/episode began/occurred just prior to arrival. Modifying factors: The symptoms are alleviated by pressure to area, the symptoms are aggravated by nothing. Associated signs and symptoms: Pertinent negatives: cyanosis distally, decreased sensation distally, numbness distally, tingling distally. Severity of symptoms: in the emergency department the symptoms have improved. The patient has not experienced similar symptoms in the past. The patient has not recently seen a physician. Historical: - Allergies: 16:46 No Known Allergies; iw - Home Meds: 16:46 Metformin Oral [Active]; iw - PMHx: 16:46 Hypertensive disorder; Diabetes mellitus; iw - Immunization history:: Last tetanus immunization: unknown. ROS: 16:46 Constitutional: Negative for fever, chills, and weight loss, Cardiovascular: Negative pm1 for chest pain, palpitations, and edema, Respiratory: Negative for shortness of breath, cough, wheezing, and pleuritic chest pain. 16:46 Neuro: Negative for headache, weakness, numbness, tingling, and seizure. 16:46 MS/extremity: Positive for laceration, of the palmar aspect of distal phalanx of right little finger, Negative for decreased range of motion, deformity. 16:46 Skin: Positive for laceration(s), of the palmar aspect of distal phalanx of right little finger. 16:46 All other systems are negative. Exam: 16:46 Constitutional: This is a well developed, well nourished patient who is awake, alert, pm1 and in no acute distress. Head/Face: Normocephalic, atraumatic. 16:46 Cardiovascular: Exam negative for acute changes, Rate: normal, Rhythm: regular, Pulses: no pulse deficits are appreciated. 16:46 Respiratory: Exam negative for acute changes, respiratory distress, shortness of breath. 16:46 Musculoskeletal/extremity: Extremities: grossly normal except: noted in the palmar aspect of distal phalanx of right little finger: laceration. 16:46 Skin: injury, laceration(s), the wound is approximately 1 cm(s), with a depth of 0.5 cm(s), of the palmar aspect of distal phalanx of right little finger, that can be described as clean, no foreign body, with mild bleeding, v-shaped. 16:46 Neuro: Exam negative for acute changes, Orientation: is normal, Mentation: is normal, Motor: is normal, moves all fours. Vital Signs: 16:45 BP 143 / 96; Pulse 85; Resp 16; Pulse Ox 99% ; Weight 84.37 kg; Height 4 ft. 11 in. iw (149.86 cm); 16:45 Body Mass Index 37.57 (84.37 kg, 149.86 cm) iw Laceration: 17:24 Wound Repair of 1cm ( 0.4in ) subcutaneous laceration to palmar aspect of distal pm1 phalanx of right little finger. Irregularly shaped.. Distal neuro/vascular/tendon intact. Anesthesia: Digital block administered with 1 mls of 1% lidocaine. Wound prep: Extensive cleansing with hibiclenz by me, Wound irrigation with saline by me, Wound explored extensively, Copious irrigation. Skin closed with 7 5-0 Prolene using simple sutures and sterile technique. Dressed with Neosporin, 4x4's. Patient tolerated well. MDM: 17:24 Patient medically screened. pm1 17:24 Data reviewed: vital signs. Data interpreted: Pulse oximetry: on room air is 99 %. pm1 Interpretation: normal. Counseling: I had a detailed discussion with the patient and/or guardian regarding: the historical points, exam findings, and any diagnostic results supporting the discharge/admit diagnosis, the need for outpatient follow up, a family practitioner, suture removal in 10-14 days, to return to the emergency department if symptoms worsen or persist or if there are any questions or concerns that arise at home. 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 Exp: iw 10/17/2022. Lot #: [id number]. } Route: IM; Site: left deltoid; 18:00 Follow up: Response: No adverse reaction iw Disposition: 18:09 Co-signature as Attending Physician, Isamar Marroquin MD PA/[employer]IST's history reviewed, ma2 patient interviewed, and examined. I agree with assessment and care plan and confirm the diagnosis (es) above. Disposition Summary: 05/19/21 17:26 Discharge Ordered Location: Home pm1 Problem: new pm1 Symptoms: have improved pm1 Condition: Stable pm1 Diagnosis - Laceration without foreign body of right little finger without damage to nail, pm1 initial encounter Followup: pm1 - With: Emergency Department - When: As needed - Reason: Worsening of condition Followup: pm1 - With: Private Physician - When: 2 - 3 days - Reason: Recheck today's complaints, Continuance of care, Re-evaluation by your physician Discharge Instructions: - Discharge Summary Sheet pm1 - Laceration Care, Adult pm1 Forms: - Medication Reconciliation Form pm1 - Thank You Letter pm1 - Antibiotic Education pm1 - Prescription Opioid Use pm1 Prescriptions: - Cephalexin 500 mg Oral Capsule - take 1 capsule by ORAL route every 6 hours for 10 days; 40 capsule; Refills: 0, pm1 Product Selection Permitted Signatures: Christie Baxter, Jorje Drake RN, NP [employer]IST pm1 Isamar Marroquin MD MD mn2
[2021-05-19 17:54] VITALS: BP 143/96; O2SAT 99
== END 2021-05-19 17:44 | disposition home or self-care (01) ==
LOC: ER 16:17
PROC: 0JQJ0ZZ Repair Right Hand Subcutaneous Tissue and Fascia, Open Approach (ICD-10-PCS; principal; 2021-05-19)
DX: S61.216A Laceration without foreign body of right little finger without damage to nail, initial encounter (principal); W26.0XXA Contact with knife, initial encounter; Y93.G1 Activity, food preparation and clean up; I10 Essential (primary) hypertension; E11.9 Type 2 diabetes mellitus without complications; Z23 Encounter for immunization
CPT/HCPCS: 90471; 90714; 99282

== ENCOUNTER 2021-10-28 11:08 | Emergency (ER) | payer OTHER, SELFPAY ==
--- OUTSIDE RECORDS SUMMARY | 2021-10-28 11:12 | XMS REPORT | Continuity of Care Document ---
:1975 Author Organization [facility] t Address [address] [place] [address] Care Team Providers Name Role Phone Clark Haley Primary Care Physician Clark DIEZ Attending Clinician Unavailable Clark Haley Attending Clinician Payers Payer Name Policy Type Policy Number Effective Date Expiration Date S ource [employer] [place] [id number] 2020 00:00:00 WOMEN Problems Condition Condition Condition Status Onset Resolution Last Treating Co mments Source Name Details Category Date Date Treatment Clinician Date Essential Essential Disease Active Uni vers hypertensi hypertensi 5-06 [place] [address] [place] [address] History of History of Disease Active U nivers tubal tubal 4-22 ity of ligation ligation 00:00: [address] Well woman Well woman Disease Active U nivers exam exam 4-22 ity of 00:00: [address] Allergies, Adverse Reactions, Alerts Allergy Allergy Status Severity Reaction(s) Onset Inactive Treating Comm ents Source Name Type Date Date Clinician NO KNOWN Drug Active Univers ALLERGIE Class ity of S [facility] Social History Social Habit Start Date Stop Date Quantity Comments Source Exposure to Not sure [facility] SARS-CoV-2 [facility] (event) [place] Tobacco use and 2020-10-11 2020-10-11 Never used Universit y of exposure 00:00:00 00:00:00 [facility] Alcohol intake 2020-10-11 2020-10-11 Ex-drinker [facility] 00:00:00 00:00:00 (finding) [facility] Sex Ass[birth year] At [birth year] Universit y of 00:00:00 00:00:00 [facility] Smoking Status Start Date Stop Date Source Never smoker General acute hospital Medications Ordered Filled Start Stop Current Ordering Indication Dosage Frequency Signature Comments Components Source Medication Medication Date Date Medication? Clinician (SIG) Name Name fluconazole 2020- No Yeast 150mg Take 1 U nivers (DIFLUCAN) 10-11 infection tablet by ity of 150 mg 00:00: 04:59 [place] mouth [place] tablet 00 :00 vagina now for 1 Medica l dose. Branch fluconazole 2020- No [id number] 150mg Take 1 Univers (DIFLUCAN) 10-11 tablet by ity of 150 mg 00:00: 04:[place] tablet [place] :00 now for 1 Medical dose. Branch fluconazole 2020- No [id number] 150mg Take 1 Univers (DIFLUCAN) 10-11 tablet [...] dose. Branch No known No Univers medications [facility] No known No Univers medications [facility] No known No Univers medications [facility] Vital Signs Vital Name Observation Time Observation Value Comments Source Systolic blood 2020-10-11 20:18:00 145 mm[Hg] Univer sity [facility] Diastolic blood 2020-10-11 20:18:00 89 mm[Hg] Unive rsity [facility] Systolic blood 2020-10-11 20:18:00 145 mm[Hg] Univer sity [facility] Diastolic blood 2020-10-11 20:18:00 89 mm[Hg] Unive rsity [facility] Heart rate 2020-10-11 20:12:00 93 /min [facility] [place] [facility] Heart rate 2020-10-11 20:12:00 93 /min [facility] Body temperature 2020-10-11 20:10:00 36.89 Yasir Univ [facility] Respiratory rate 2020-10-11 20:10:00 16 /min [facility] Body height 2020-10-11 20:10:00 149.9 cm [facility] Body weight 2020-10-11 20:10:00 89.982 kg [facility] BMI 2020-10-11 20:10:00 40.07 kg/m2 [facility] Body temperature 2020-10-11 20:10:00 36.89 Yasir [facility] Respiratory rate 2020-10-11 20:10:00 16 /min [facility] Body height 2020-10-11 20:10:00 149.9 cm [facility] Body weight 2020-10-11 20:10:00 89.982 kg [facility] BMI 2020-10-11 20:10:00 40.07 kg/m2 [facility] Systolic blood 2020-10-11 20:18:00 145 mm[Hg] Univer sity of pressure [facility] Diastolic blood 2020-10-11 20:18:00 89 mm[Hg] Unive rsity of pressure [facility] Systolic blood 2020-10-11 20:18:00 145 mm[Hg] Univer sity of pressure [facility] Diastolic blood 2020-10-11 20:18:00 89 mm[Hg] Unive rsity of [facility] Heart rate 2020-10-11 20:12:00 93 /min [facility] Heart rate 2020-10-11 20:12:00 93 /min [facility] Body temperature 2020-10-11 20:10:00 36.89 Yasir [facility] Respiratory rate 2020-10-11 20:10:00 16 /min Univ [facility] Body height 2020-10-11 20:10:00 149.9 cm [facility] Body weight 2020-10-11 20:10:00 89.982 kg [facility] BMI 2020-10-11 20:10:00 40.07 kg/m2 [facility] Body temperature 2020-10-11 20:10:00 36.89 Yasir [facility] Respiratory rate 2020-10-11 20:10:00 16 /min Univ ersity of [facility] Body height 2020-10-11 20:10:00 149.9 cm [facility] Body weight 2020-10-11 20:10:00 89.982 kg [facility] BMI 2020-10-11 20:10:00 40.07 kg/m2 Universi ty of [facility] Systolic blood 2020-09-27 14:20:00 172 mm[Hg] Univer sity of pressure [facility] Diastolic blood 2020-09-27 14:20:00 94 mm[Hg] Unive rsity of pressure [facility] Heart rate 2020-09-27 14:20:00 88 /min Universi ty of [facility] Body temperature 2020-09-27 14:20:00 36.67 Yasir Univ ersity [facility] Respiratory rate 2020-09-27 14:20:00 16 /min [facility] Body height 2020-09-27 14:20:00 149.9 cm [facility] [place] [facility] [place] Body weight 2020-09-27 14:20:00 90.946 kg Universi ty of [facility] BMI 2020-09-27 14:20:00 40.50 kg/m2 Universi ty [facility] Procedures This patient has no known procedures. Plan of Care Planned Activity Planned Date Details Comments Source Future Scheduled 2023-09-28 Screening for University of Test 00:00:00 malignant neoplasm [place] [facility] of cervix [facility] (procedure) [code = 537687508] Future Scheduled 2023-09-28 Screening for University of Test 00:00:00 malignant neoplasm [place] [facility] of cervix [facility] (procedure) [code = 916727260] Future Scheduled 2021-10-08 Screening for University of Test 00:00:00 malignant neoplasm [place] [facility] of breast Branch (procedure) [code = 857320597] Future Scheduled 2021-10-08 Screening for University of Test 00:00:00 malignant neoplasm [place] [facility] of breast Branch (procedure) [code = 927046695] Future Scheduled 2021-09-27 DTaP,Tdap,and Td Postponed from Unive rsity of Test 00:00:00 Vaccines (11/24/1995 [place] [facility] Tdap) [code = (Alternative Branch DTaP,Tdap,and Td Guidelines) Vaccines (1 - Tdap)] Future Scheduled 2021-09-27 Depression University of Test 00:00:00 screening [place] [facility] (procedure) [code Branch = 094302571] Future Scheduled 2021-09-27 DTaP,Tdap,and Td Postponed from Unive rsity of Test 00:00:00 Vaccines (11/24/1995 [place] [facility] Tdap) [code = (Alternative Branch DTaP,Tdap,and Td Guidelines) Vaccines (1 - Tdap)] Future Scheduled 2021-09-27 Depression University of Test 00:00:00 screening [place] [facility] (procedure) [code Branch = 516012184] Future Scheduled 2021-02-06 INFLUENZA VACCINE Univer sity of Test 00:00:00 (Season Ended) [place] [facility] [code = INFLUENZA Branch VACCINE (Season Ended)] Future Scheduled 2021-02-06 INFLUENZA VACCINE Univer sity of Test 00:00:00 (Season Ended) [place] [facility] [code = INFLUENZA Branch VACCINE (Season Ended)] Future Scheduled 1994 Hepatitis C University of Test 00:00:00 screening [place] [facility] (procedure) [code Branch = 829524890] Future Scheduled 1994 Hepatitis C University of Test 00:00:00 screening [facility] (procedure) [code Branch = 941915331] Future Scheduled 1992 SARS-CoV-2 University of Test 00:00:00 (COVID-19) Vaccine [place] [facility] (1) [code = Branch SARS-CoV-2 (COVID-19) Vaccine (1)] Future Scheduled 1992 SARS-CoV-2 University of Test 00:00:00 (COVID-19) Vaccine [place] [facility] (1) [code = Branch SARS-CoV-2 (COVID-19) Vaccine (1)] Encounters Start End Encounter Admission Attending Care Care Encounter Source Date/Time Date/Time Type Type Clinicians Facility Department ID 2020-10-12 2020-10-12 Outpatient R AKINSIPE, [facility] [id number] Univers 15:15:00 15:15:[id number] [facility] 2020-10-12 2020-10-12 Outpatient R AKINSIPE, [facility] [id number] Univers 15:15:00 15:15:00 [facility] 2020-10-11 2020-10-11 Office [facility] [id number] Univers 14:55:37 15:42:33 Visit Sirena Rodas RADIO OPERATOR [id number] ity of REGIONAL [id number] [place] as MATERNAL [id number] [facility] ical & CHILD [address] [place] [address] 2020-10-11 2020-10-11 Outpatient R AKINSIPE, [facility] [id number] Univers 14:45:00 14:45:00 SIRENA [id number] [facility] 2020-10-11 2020-10-11 Outpatient R AKINSIPE, [facility] [id number] Univers 14:45:00 14:45:00 SIRENA [facility] 2020-10-08 2020-10-08 [facility] [id number] Univers 06:54:15 23:59:00 Encounter Sirena Rodas SPECIALTY [id number] ity of [facility] [id number] [id number] Id roberta [place] [address] [place] 2020-10-08 2020-10-08 Outpatient R AKINSIPE, [facility] [id number] Univers 11:00:00 11:00:00 SIRENA [id number] [facility] 2020-10-08 2020-10-08 Outpatient R AKINSIPE, [facility] [id number] Univers 00:00:00 00:00:00 [facility] 2020-10-08 2020-10-08 [facility] [id number] Univers 00:00:00 00:00:00 SIRENA cruz [facility] 2020-09-27 2020-09-27 Office Carley [facility] [id number] [facility] 09:03:17 10:14:12 Visit Sirena Rodas RADIO OPERATOR [id number] ity [facility] [id number] [place] MATERNAL [id number] Med ical & CHILD [address] [place] [address] 2020-09-27 2020-09-27 Outpatient R CARLEY [facility] [id number] [facility] 09:15:00 09:15:00 SIRENADOREEN [place] anthony [facility] Results Test Description Test Time Test Comments Results Result Comments Source PAP TEST, THINPREP, IMAGED 2021-08-22 14:45:58 Test Item Value Reference Range Interpretation Comme nts SOURCE: (test code = Cervical/Endocervical 8001) SLIDES: (test code = 1 8011) LMP: (test code = 07/26/2021 8021) SPECIMEN ADEQUACY: (NOTE) Sati sfactory for (test code = 30717) evaluati on. Endocervical cells/transform ation zone component not i dentified. INTERPRETATION: NILM/NO EPITH. ABNORMALITY;SEE (test code = 81093) BELOW -------- NEGATIVE FOR INTRAEPITHE LIAL LESION OR MALIGNANCY ( NILM) -- OTHER COMMENTS: (NOTE) Shift in chantal ra suggestive of (test code = 8081) bacterial vaginosis. MARINE EQUIPMENT SALES ENGINEER: SAMEERA Villalobos (ASCP) (test code = 8101) LOCATION: (test code (NOTE) Specime ns processed and = 08432) interpreted at [facility], [address] [facility] [place] [address], Phone: , CLIA: [id number] CPT: (test code = (NOTE) 79914 U NLESS OTHERWISE 8140) INDICATED, COMP UTER AIDED AND CYTOTECHNOL OGIST SCREENING PERFO RMED. The Pap test is a screening test with an in herent, but low probabi lity of error. Your pa evan should be reminded to consult you immediately if she experiences any suspicious signs or symp toms, regardless of h er Pap test result. An alternate report format c ontaining images or conso lidated prior Pap histo ry is available as ap plicable. HPV HIGH RISK WITH GENOTYPE, [id number] 14:39:41 Test Item Value Reference Range Interpretation Comments HPV HIGH RISK INTERP NEGATIVE NEGATIVE (test code = 13090) HPV 16 (test code = NEGATIVE 36957) HPV 18 (test code = NEGATIVE 90527) HPV, HR, OTHER NEGATIVE Testing GENOTYPES (test code methodo logy is real-time = 72053) PCR utilizing h ydrolysis probes with the Tresa Kev 480 0 system. The test indiv idually detects genot ypes 16 and 18, as well as the other 12 high r isk types (31,33,35,39,45 ,51,52,56 ,58,59,66,68). The expected re sult is negative. A negative result does not rule out the presence of HPV not included in the genotype set, a low level of infect ion or specimen can pling error. U NLESS OTHERWISE INDIC ATED, ALL TESTING PERFORM ED [facility], I [place] [address] [place] [address] LABORATORY DIRE CTOR: HENRIK GARCIA M.D. CLIA NUMBER [id number] CAP ACCREDITATION N O. [id number] CT/NG, TMA, [id number] 18:05:49 Test Item Value Reference Range Interpretation Comments GONORRHEA, TMA NEGATIVE NEGATIVE Assay m ethodology is (test code = nucleic acid am plification 50984) by transcriptio n mediated amplif ication (TMA) utilizing the Aptima Combo 2 Assay. CHLAMYDIA, TMA NEGATIVE NEGATIVE Assay m ethodology is (test code = nucleic acid am plification 32570) by transcriptio n mediated amplif ication (TMA) utilizing the Aptima Combo 2 Assay. VAGINAL PATHOGENS DNA [id number] 14:37:44 Test Item Value Reference Range Interpretation Comments MEGAN SPECIES (test NEGATIVE NEGATIVE code = ) G. VAGINALIS (test POSITIVE NEGATIVE A code = ) T. VAGINALIS (test NEGATIVE NEGATIVE UN LESS OTHERWISE code = ) INDICATED, ALL TESTING PERFORMED [facility] [address] [place] [address] 4 LABORATORY DIR MAURICE: HENRIK GARCIA M.D. CLIA NUMBER [id number] CAP ACCREDITATION N O. [id number] HIV 1/2 4TH GEN, RFLX [id number] 05:56:50 Test Item Value Reference Range Interpretation Comments HIV 1/2 4TH GEN, RFLX CONF (test NON-REACTIVE NON-REACTIVE code = 3514) HEPATITIS PANEL, [id number] 05:56:50 Test Item Value Reference Range Interpretation Comments HEPATITIS A IgM (test NON-REACTIVE NON-REACTIVE code = 77750) HEPATITIS B CORE IgM NON-REACTIVE NON-REACTIVE (test code = 4644) HEPATITIS B SURF AG NON-REACTIVE NON-REACTIVE (test code = 2739) HEPATITIS C ANTIBODY NON-REACTIVE NON-REACTIVE (test code = 4675) INTERPRETATION (NOTE) Hepatiti s A HEPATITIS A: (test code sero logy shows no = 2552) evidence of acu te hepatitis A. INTERPRETATION (NOTE) Hepatiti s B HEPATITIS B: (test code sero logy shows no = 65696) evidence of acu te hepatitis B and no indication of exposure to hepatitis B vir us in the previous justyn eight months. INTERPRETATION (NOTE) Hepatiti s C HEPATITIS C: (test code sero logy shows no = 53205) evidence of exposure to hepatitisC viru s at this time. It can take up to 12 months after exposure tothe hepatitis C vir us for antibodies to become detectab le in the bloo d in certain patients. [id number] 05:32:35 Test Item Value Reference Range Interpretation Comments RPR RESULT (test code = NON-REACTIVE NON-REACTIVE 3501) RPR TITER (test code = 3500) NOT INDIC. TITER NOT INDIC. LIPID [id number] 23:59:41 Test Item Value Reference Range Interpretation Comments CHOLESTEROL (test 192 MG/DL <200 code = 2210) TRIGLYCERIDES (test 115 MG/DL <150 code = 2232) HDL CHOLESTEROL (test 47 MG/DL >39 code = 2220) CALC LDL CHOL (test 122 MG/DL <100 H NOTE: C ALCULATED LDL code = 2237) IS BASED ON RONI-CROW METHOD WHICHINCLUDES ADJUSTABLE TRIGLYCERIDE:VL DL CHOLESTEROL RAT IO.THIS FACTOR VARIES B Y MEASURED TRIGLY CERIDE AND NON-HDLCHOL ESTEROL CONCENTRATIONS WITH INCREASED CALCU LATED LDL SEENIN HIGH ER TRIGLYCERIDE OR LOWER NON-HDL SPECIME NS. FOR MOREINFORMATION , SEE CLIENT ANNOUNCE MENT AT [email or web address] RISK RATIO LDL/HDL 2.60 RATIO <3.22 (test code = 2238) COMPREHENSIVE METABOLIC [id number] 23:59:41 Test Item Value Reference Range Interpretation Comments GLUCOSE (test code = 170 MG/DL 70-99 H 2216) BUN (test code = 18 MG/DL 6-20 2207) CREATININE (test 0.60 MG/DL 0.60-1.30 EFFECTIVE code = 2214) 05/20/2021, [facility] HAS IMPLEMENTED THE NKF-ASN RECOMME NDED KD-EPI EGF R REFIT CALCULATI ON THAT DOES NOT I NCLUDE A COEFFICIENT FORRACE. FOR MO RE INFORMATION, SE E ANNOUNCEMENT [email or web address] eGFR (2020 CKD-EPI) 113 >60 (test code = 95186) ML/MIN/1.73 CALC BUN/CREAT (test 30 RATIO 6-28 H code = 2235) SODIUM (test code = 141 MEQ/L 067-255 4546) POTASSIUM (test code 4.2 MEQ/L 3.5-5.4 = 2227) CHLORIDE (test code 103 MEQ/L 95-107 = 2214) CARBON DIOXIDE (test 24 MEQ/L 19-31 code = 220) CALCIUM (test code = 9.3 MG/DL 8.5-10.5 2208) PROTEIN, TOTAL (test 7.4 G/DL 6.1-8.3 code = 2229) ALBUMIN (test code = 4.1 G/DL 3.5-5.2 2200) CALC GLOBULIN (test 3.3 G/DL 1.9-3.7 code = 2240) CALC A/G RATIO (test 1.2 RATIO 1.0-2.6 code = 2234) BILIRUBIN, TOTAL 0.4 MG/DL See_Comment [Automated message] (test code = 2207) The syste m which generated this result transmitted ref erence range: <=1.2. T he reference range was not used to int erpret this result as normal/abnormal . ALKALINE PHOSPHATASE 82 U/L 40-115 (test code = 2204) AST (test code = 18 U/L 9-40 2217) ALT (test code = 23 U/L 5-40 UNLE SS 2218) OTHERWISE INDIC ATED, ALL TESTING PER FORMED ATCLINICAL PATH [facility], [place] [address] [place] [address] LABORATORY DIRE CTOR: HENRIK GARCIA M.D. CLIA NUMBER [id number] CAP ACCREDITATION N O. [id number] HEMOGLOBIN [id number] 03:23:02 Test Item Value Reference Range Interpretation Comments HEMOGLOBIN A1c (test 7.6 % 4.2-5.6 H ANGOLAN DIABETES code = 97607) ASSOCIATION IDELINES FOR HGB A1C: PREDIABETES/INC REASED RISK . . . . . . . 5.7 -6.4% DIAGNOSIS OF D IABETES . . . . . . . . . > =6.5% WITH CONFIRM ATION OR APPROPRIATE SYM PTOMS NOTE: ASSAY MAY BE AFFECTED BY HEMOGLOBINOP ATHIES (SICKLE YASIR L ANEMIA, S-C DISEASE, OTHERS ) OR ARTIFICIALLY LO WERED BY DECREASED RED C ELL SURVIVAL (HEMOLYTIC ANEM IAS, BLOOD LOSS, ETC.) . CONSIDER ALTERNATE TESTI NG OR LABORATORY CONS ULTATION.
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
[2021-10-28 14:15] VITALS: BP 157/103; TEMP 98.2; O2SAT 99
== END 2021-10-28 14:10 | disposition home or self-care (01) ==
LOC: ER 11:08
DX: M54.30 Sciatica, unspecified side (principal); E11.9 Type 2 diabetes mellitus without complications; I10 Essential (primary) hypertension
CPT/HCPCS: 72100; 99282

== ENCOUNTER 2024-05-17 10:44 | Emergency (ER) | payer OTHER, SELFPAY ==
--- OUTSIDE RECORDS SUMMARY | 2024-05-17 10:49 | XMS REPORT | Continuity of Care Document ---
Author Name Unknown Address [address] [place] [address] 1 [address] [id number] [facility] Address [address] [facility] 1 [address] [place] [address] Care Team Providers Care Grease Man Name Role Phone Julia Reed NP Primary Care Physician PATSY VOGT Attending Clinician Unavailab le [email or web address]_S Attending Clinician Unavaila ble SIRENA DIEZ Attending Clinician Unavail able Sirena Haley Attending Clinician + [email or web address]_S Admitting Clinician Unavaila ble Payers Payer Name Policy Type Policy Number Effective Date Expirati on Date Source DANIEL NELSON [address] ON/OFF 9 [id number] 2023 00:00:00 [facility] [place] [facility] [id number] 2020 00:00:00 Problems Condition Name Condition Details Condition Category Status Onset Date Resolution Date Last Treatment Date Treating Clinician Comments Source Essential hypertensi on, benign Essential hypertensi on, benign Disease Active 10-11 00:00: 00 [facility] History of tubal ligation History of tubal ligation Disease Active 09-27 00:00: 00 [facility] Well woman exam Well woman exam Disease Active 09-27 00:00: 00 [facility] Allergies, Adverse Reactions, Alerts Allergy Name Allergy Type Status Severity Reaction(s) Onset Date Inactive Date Treating Clinician Comments Source none (Not Checked) Propensi ty to adverse reaction to drug Active 2023-06 00:00: 00 Daryn Bernard NO KNOWN ALLERGIE S Drug Class Active [facility] Social History Social Habit Start Date Stop Date Quantity Comments Source Exposure to SARS-CoV-2 (event) Not sure [facility] Tobacco use and exposure 2020-10-11 00:00:00 2020-10-11 00:00:00 Never used [facility] Alcohol intake 2020-10-11 00:00:00 2020-10-11 00:00:00 Ex-drinker (finding) [facility] Sex Assigned At 1975 00:00:00 1975 00:00:00 [facility] Smoking Status Start Date Stop Date Source Never smoker [facility] Medications Ordered Medication Name Filled Medication Name Start Date Stop Date Current Medication? Ordering Clinician Indication Dosage Frequency Signature (SIG) Comments Components Source pioglitazon e 45 mg tablet 2023-06 00:00: 00 Yes 1mg Daryn Bernard amlodipine 5 mg tablet 2023-06 00:00: 00 Yes 1mg Daryn Bernard lisinopril 30 mg tablet 2023-06 00:00: 00 Yes 1mg Daryn Bernard glipizide 10 mg tablet 2023-06 00:00: 00 Yes 1mg Daryn Bernard amlodipine 5 mg tablet 2023-06 00:00: 00 Yes 1mg Daryn Bernard hydrochloro thiazide 12.5 mg tablet 2023-06 00:00: 00 Yes 1mg Daryn Bernard atorvastati n 10 mg tablet 2023-06 00:00: 00 Yes 1mg Daryn Bernard albuterol sulfate HFA 90 mcg/actuati on aerosol inhaler 2023-06 0 00:00: 00 Yes 2mcg/ac tuation Daryn Bernard Bromfed DM 2 mg-30 mg-10 mg/5 mL oral syrup 03-07 00:00: 00 Yes 10mg/5 mL Daryn Bernard Tradjenta 5 mg tablet -12 00:00: 00 Yes 1mg Daryn Bernard lisinopril 30 mg tablet 9-10 00:00: 00 Yes 1mg Daryn Bernard glipizide 10 mg tablet 12-22 00:00: 00 Yes 1mg Daryn Bernard amlodipine 5 mg tablet 12-22 00:00: 00 Yes 1mg Daryn Bernard lisinopril 30 mg tablet 12-22 00:00: 00 Yes 1mg Daryn Bernard hydrochloro thiazide 12.5 mg tablet 12-22 00:00: 00 Yes 1mg Daryn Bernard atorvastati n 10 mg tablet 12-22 00:00: 00 Yes 1mg Daryn Bernard cyclobenzap rine 10 mg tablet 12-22 00:00: 00 Yes 1mg Daryn Bernard TAKE 2 TABLETS TWICE DAILY 2022-06 00:00: 00 Yes 500 Daryn Bernard TAKE 1 TABLET AT BEDTIME. 2022-06 00:00: 00 10-13 00:00 :00 No 10 Daryn Bernard TAKE 1 TABLET DAILY. 2022-06 00:00: 00 10-13 00:00 :00 No 125 Daryn Bernard TAKE 1 TABLET DAILY. 2022-06 00:00: 00 10-13 00:00 :00 No 30 Daryn Bernard TAKE 1 TABLET DAILY. 2022-06 00:00: 00 10-13 00:00 :00 No 5 Daryn Bernard TAKE 1 TABLET DAILY. 2022-06 00:00: 00 10-13 00:00 :00 No 5 Daryn Bernard RINSE WITH 1 CAPFUL TWICE A DAY SPIT DO NOT SWALLOW 08-19 00:00: 00 Yes Daryn Bernard TAKE 1 CAPSULE BY MOUTH EVERY 8 HOURS UNITLL ALL TAKEN 08-19 00:00: 00 Yes Daryn Bernard 10 ML Q 4 TO 6 HOURS PRN COUGH FOR 5 DAYS 07-15 00:00: 00 10-13 00:00 :00 No [id number] Daryn Bernard INSTILL 1 DROP INTO BOTH EYES 4 TIMES DAILY. 07-15 00:00: 00 10-13 00:00 :00 No [id number] Daryn Bernard TAKE ONE (1) TABLET(S) BY MOUTH TWICE A DAY. 10-28 00:00: 00 Yes Daryn Bernard TAKE ONE (1) TABLET(S) BY MOUTH EVERY EIGHT HOURS NEEDED. 10-28 00:00: 00 Yes Daryn Bernard lisinopril 20 mg tablet 18 00:00: 00 Yes 1mg Daryn Bernard amlodipine 5 mg tablet 18 00:00: 00 Yes 1mg Daryn Bernard metformin ER 500 mg 24 hr tablet,exte nded release (gastric) 10-23 00:00: 00 Yes 2mg Daryn Bernard atorvastati n 10 mg tablet 10-23 00:00: 00 Yes 1mg Daryn Bernard hydrochloro thiazide 12.5 mg capsule 10-23 00:00: 00 Yes 1mg Daryn Bernard Dose Unknown 18 00:00: 00 Yes Daryn Bernard ibuprofen 800 mg tablet 10-21 00:00: 00 Yes 1mg Daryn Bernard Dose Unknown 23 00:00: 00 Yes Daryn Bernard Dose Unknown -23 00:00: 00 Yes Daryn Bernard lisinopril 10 mg tablet - 00:00: 00 Yes 1mg Daryn Bernard ondansetron 8 mg disintegrat ing tablet 21 00:00: 00 Yes 1mg Daryn Bernard Dose Unknown 3-21 00:00: 00 Yes Daryn Bernard Dose Unknown 3-20 00:00: 00 Yes Daryn Bernard Dose Unknown 3-17 00:00: 00 Yes Daryn Bernard metronidazo le 500 mg tablet 0 3-15 00:00: 00 Yes 1mg Daryn Bernard Dose Unknown 3-15 00:00: 00 Yes Daryn Bernard Dose Unknown 0 3-15 00:00: 00 Yes Daryn Bernard Dose Unknown 0 3-15 00:00: 00 Yes Daryn Bernard Dose Unknown 0 3-15 00:00: 00 Yes Daryn Bernard Dose Unknown 0 3-15 00:00: 00 Yes Daryn Bernard Dose Unknown 3-15 00:00: 00 Yes Daryn Bernard Dose Unknown 3-14 00:00: 00 Yes Daryn Bernard Dose Unknown 3-14 00:00: 00 Yes Daryn Bernard Dose Unknown 314 00:00: 00 Yes Daryn Bernard Dose Unknown 3-14 00:00: 00 Yes Daryn Bernard Dose Unknown 3-14 00:00: 00 Yes Daryn Bernard Dose Unknown 14 00:00: 00 Yes Daryn Bernard metformin ER 1,000 mg 24 hr tablet,exte nded release (gastric) 1-12 00:00: 00 Yes 1mg Daryn Bernard atorvastati n 10 mg tablet 1-11 00:00: 00 Yes 1mg Daryn Bernard metformin 1,000 mg tablet 1-05 00:00: 00 Yes 1mg Daryn Bernard amlodipine 5 mg tablet 1-05 00:00: 00 Yes 1mg Daryn Bernard hydrochloro thiazide 12.5 mg capsule 1-05 00:00: 00 Yes 1mg Daryn Bernard metformin 500 mg tablet 2020-06 0-05 00:00: 00 Yes 1mg Daryn Bernard Dose Unknown - 00:00: 00 Yes Daryn Bernard Dose Unknown -16 00:00: 00 Yes Daryn Bernard hydrochloro thiazide 12.5 mg capsule -16 00:00: 00 Yes 1mg Daryn Bernard fluconazole (DIFLUCAN) 150 mg tablet -06 00:00: 00 - 04:59 :00 No [id number] 150mg Take 1 tablet by mouth once now for 1 dose. [facility] Dose Unknown - 00:00: 00 Yes Daryn Bernard hydrochloro thiazide 12.5 mg capsule - 00:00: 00 Yes 1mg Daryn Bernard cyclobenzap rine 5 mg tablet 2019-06 2-14 00:00: 00 Yes 1mg Daryn Bernard amoxicillin 875 mg-kaushik page clavulanate 125 mg tablet 06-28 00:00: 00 Yes 1mg Daryn Bernard benzonatate 100 mg capsule 06-28 00:00: 00 Yes 1mg Daryn Bernard ciprofloxac in 0.3 % eye drops 06-16 00:00: 00 Yes 1% Daryn Bernard hydrochloro thiazide 12.5 mg capsule 2018-06 00:00: 00 Yes 1mg Daryn Bernard Dose Unknown 2018-06 00:00: 00 Yes Daryn Bernard cyclobenzap rine 5 mg tablet 2018-06 00:00: 00 Yes 1mg Daryn Bernard amlodipine 2.5 mg tablet 2018-06 00:00: 00 Yes 1mg Daryn Bernard omeprazole 20 mg tablet,issa yed release 2018-06 00:00: 00 Yes 1mg Daryn Bernard dicyclomine 20 mg tablet 2018-06 00:00: 00 Yes 1mg Daryn Bernard No known medications No Un g[facility] No known medications No [facility] No known medications No [facility] Vital Signs Vital Name Observation Time Observation Value Comments S ource Systolic blood pressure 2020-10-11 20:18:00 145 mm[Hg] [facility] Diastolic blood pressure 2020-10-11 20:18:00 89 mm[Hg] [facility] Heart rate 2020-10-11 20:12:00 93 /min [facility] Body temperature 2020-10-11 20:10:00 36.89 Josephine [facility] Respiratory rate 2020-10-11 20:10:00 16 /min [facility] Body height 2020-10-11 20:10:[address] [facility] Body weight 2020-10-11 20:10:[address] [facility] BMI 2020-10-11 20:10:00 40.07 kg/m2 [facility] Systolic blood pressure 2020-09-27 14:20:00 172 mm[Hg] [facility] Diastolic blood pressure 2020-09-27 14:20:00 94 mm[Hg] [facility] Heart rate 2020-09-27 14:20:00 88 /min [facility] Body temperature 2020-09-27 14:20:00 36.67 Josephine [facility] Respiratory rate 2020-09-27 14:20:00 16 /min [facility] Body height 2020-09-27 14:20:[address] [facility] Body weight 2020-09-27 14:20:[address] [facility] BMI 2020-09-27 14:20:00 40.50 kg/m2 [facility] BP Systolic 2024-04-15 15:23:00 120 mm[Hg] Step hen F Marco Antonio BP Diastolic 2024-04-15 15:23:00 82 mm[Hg] Russell phen F Marco [facility] Weight Measured 2024-04-15 15:23:00 185.00 pounds Daryn F Marco [facility] Height Measured 2024-04-15 15:23:00 60.00 inches Daryn F [facility] Body Temperature 2024-04-15 15:23:00 98.10 degrees Daryn F Marco [facility] Heart Rate 2024-04-15 15:23:00 105.00 /min Step hen F Marco [facility] Respiratory Rate 2024-04-15 15:23:00 20.00 /min Daryn F Marco Antonio BP Systolic 2024-04-11 14:48:00 110 mm[Hg] Step hen F Marco Antonio BP Diastolic 2024-04-11 14:48:00 80 mm[Hg] Russell phen F Marco Antonio Weight Measured 2024-04-11 14:48:00 186.00 pounds Daryn F Marco Antonio Height Measured 2024-04-11 14:48:00 59.00 inches Daryn F Marco Antonio Body Temperature 2024-04-11 14:48:00 96.70 degrees Daryn F Marco Antonio Heart Rate 2024-04-11 14:48:00 100.00 /min Step hen F Marco Antonio Respiratory Rate 2024-04-11 14:48:00 18.00 /min Daryn F Marco Antonio BP Systolic 2024-03-25 13:59:00 148 mm[Hg] Step hen F Maroc Antonio BP Diastolic 2024-03-25 13:59:00 85 mm[Hg] Russell phen F Marco Antonio Weight Measured 2024-03-25 13:59:00 186.60 pounds Daryn F Marco Antonio Height Measured 2024-03-25 13:59:00 59.00 inches Daryn F Marco Antonio Body Temperature 2024-03-25 13:59:00 97.90 degrees Daryn F Marco Antonio Heart Rate 2024-03-25 13:59:00 78.00 /min Roxanna en F Marco Antonio Respiratory Rate 2024-03-25 13:59:00 18.00 /min Daryn F Marco Antonio BP Systolic 2024-03-11 15:24:00 133 mm[Hg] Step hen F Marco Antonio BP Diastolic 2024-03-11 15:24:00 64 mm[Hg] Russell phen F Marco Antonio Weight Measured 2024-03-11 15:24:00 183.50 pounds Daryn F Marco Antonio Height Measured 2024-03-11 15:24:00 59.00 inches Daryn F Marco Antonio Body Temperature 2024-03-11 15:24:00 98.00 degrees Daryn F Marco Antonio Heart Rate 2024-03-11 15:24:00 87.00 /min Roxanna en F Marco Antonio Respiratory Rate 2024-03-11 15:24:00 20.00 /min Daryn F Marco Antonio BP Systolic 2024-03-07 14:27:00 147 mm[Hg] Step hen F Marco Antonio BP Diastolic 2024-03-07 14:27:00 90 mm[Hg] Russell phen F Marco Antonio Weight Measured 2024-03-07 14:27:00 196.40 pounds Daryn F Marco Antonio Height Measured 2024-03-07 14:27:00 59.00 inches Daryn F Marco Antonio Body Temperature 2024-03-07 14:27:00 98.40 degrees Daryn F Marco Antonio Heart Rate 2024-03-07 14:27:00 111.00 /min Step hen F Marco Antonio Respiratory Rate 2024-03-07 14:27:00 18.00 /min Daryn F Marco Antonio BP Systolic 2024-02-16 15:08:00 156 mm[Hg] Step hen F Marco Antonio BP Diastolic 2024-02-16 15:08:00 98 mm[Hg] Russell phen F Marco Antonio Weight Measured 2024-02-16 15:08:00 187.00 pounds Daryn F Marco Antonio Height Measured 2024-02-16 15:08:00 59.00 inches Daryn F Marco Antonio Body Temperature 2024-02-16 15:08:00 97.50 degrees Daryn F Marco Antonio Heart Rate 2024-02-16 15:08:00 103.00 /min Step hen F Marco Antonio Respiratory Rate 2024-02-16 15:08:00 18.00 /min Daryn F Marco Antonio Weight Measured 2023-12-23 09:38:00 184.40 pounds Daryn F Marco Antonio Height Measured 2023-12-23 09:38:00 59.00 inches Daryn F Marco Antonio Body Temperature 2023-12-23 09:38:00 97.20 degrees Daryn F Marco Antonio Heart Rate 2023-12-23 09:38:00 81.00 /min Roxanna en F Marco Antonio Respiratory Rate 2023-12-23 09:38:00 19.00 /min Daryn F Marco Antonio BP Systolic 2023-12-23 09:38:00 145 mm[Hg] Step hen F Marco Antonio BP Diastolic 2023-12-23 09:38:00 89 mm[Hg] Russell phen F Marco Antonio BP Systolic 2023-03-26 15:12:00 157 mm[Hg] Step hen F Marco Antonio BP Diastolic 2023-03-26 15:12:00 87 mm[Hg] Russell phen F Marco Antonio Weight Measured 2023-03-26 15:12:00 188.20 pounds Daryn F Marco Antonio Height Measured 2023-03-26 15:12:00 59.00 inches Daryn F Marco Antonio Body Temperature 2023-03-26 15:12:00 97.40 degrees Daryn F Marco Antonio Heart Rate 2023-03-26 15:12:00 88.00 /min Roxanna en F Marco Antonio Respiratory Rate 2023-03-26 15:12:00 Daryn F Marco Antonio BP Systolic 2022-07-15 15:33:00 159 mm[Hg] Step hen F Marco Antonio BP Diastolic 2022-07-15 15:33:00 92 mm[Hg] Russell phen F Marco Antonio Weight Measured 2022-07-15 15:33:00 192.60 pounds Daryn F Marco Antonio Height Measured 2022-07-15 15:33:00 59.00 inches Daryn F Marco Antonio Body Temperature 2022-07-15 15:33:00 97.30 degrees Daryn F Marco Antonio Heart Rate 2022-07-15 15:33:00 97.00 /min Roxanna en F Marco Antonio Respiratory Rate 2022-07-15 15:33:00 Daryn F Marco Antonio BP Systolic 2021-11-18 14:28:00 122 mm[Hg] Step hen F Marco Antonio BP Diastolic 2021-11-18 14:28:00 76 mm[Hg] Russell phen F Marco Antonio Weight Measured 2021-11-18 14:28:00 200.20 pounds Daryn F Marco Antonio Height Measured 2021-11-18 14:28:00 59.00 inches Daryn F Marco Antonio Body Temperature 2021-11-18 14:28:00 98.50 degrees Daryn F Marco Antonio Heart Rate 2021-11-18 14:28:00 98.00 /min Roxanna en F Marco Antonio Respiratory Rate 2021-11-18 14:28:00 25.00 /min Daryn F Marco Antonio BP Systolic 2021-10-23 15:46:00 167 mm[Hg] Step hen F Marco Antonio BP Diastolic 2021-10-23 15:46:00 88 mm[Hg] Russell phen F Marco Antonio Weight Measured 2021-10-23 15:46:00 199.20 pounds Daryn F Marco Antonio Height Measured 2021-10-23 15:46:00 59.00 inches Daryn F Marco Antonio Body Temperature 2021-10-23 15:46:00 97.70 degrees Daryn F Marco Antonio Heart Rate 2021-10-23 15:46:00 87.00 /min Roxanna en F Marco Antonio Respiratory Rate 2021-10-23 15:46:00 Daryn F Marco Antonio BP Systolic 2021-10-21 11:37:00 154 mm[Hg] Step hen F Marco Antonio BP Diastolic 2021-10-21 11:37:00 92 mm[Hg] Russell phen F Marco Antonio Weight Measured 2021-10-21 11:37:00 197.40 pounds Daryn F Marco Antonio Height Measured 2021-10-21 11:37:00 59.00 inches Daryn F Marco Antonio Body Temperature 2021-10-21 11:37:00 98.40 degrees Daryn F Marco Antonio Heart Rate 2021-10-21 11:37:00 83.00 /min Roxanna en F Marco Antonio Respiratory Rate 2021-10-21 11:37:00 Daryn F Marco Antonio BP Systolic 2021-08-26 17:22:00 159 mm[Hg] Step hen F Marco Antonio BP Diastolic 2021-08-26 17:22:00 94 mm[Hg] Russell phen F Marco Antonio Weight Measured 2021-08-26 17:22:00 199.00 pounds Daryn F Marco Antonio Height Measured 2021-08-26 17:22:00 59.00 inches Daryn F Marco Antonio Body Temperature 2021-08-26 17:22:00 97.20 degrees Daryn F Marco Antonio Heart Rate 2021-08-26 17:22:00 84.00 /min Roxanna en F Marco Antonio Respiratory Rate 2021-08-26 17:22:00 Daryn F Marco Antonio BP Systolic 2021-08-19 08:54:00 146 mm[Hg] Step hen F Marco Antonio BP Diastolic 2021-08-19 08:54:00 86 mm[Hg] Russell phen F Marco Antonio Weight Measured 2021-08-19 08:54:00 199.20 pounds Daryn F Marco Antonio Height Measured 2021-08-19 08:54:00 59.00 inches Daryn F Marco Antonio Body Temperature 2021-08-19 08:54:00 97.40 degrees Daryn F Marco Antonio Heart Rate 2021-08-19 08:54:00 90.00 /min Roxanna en F Marco Antonio Respiratory Rate 2021-08-19 08:54:00 Daryn F Marco Antonio BP Systolic 2021-06-12 14:36:00 147 mm[Hg] Step hen F Marco Antonio BP Diastolic 2021-06-12 14:36:00 89 mm[Hg] Russell phen F Marco Antonio Weight Measured 2021-06-12 14:36:00 195.20 pounds Daryn F Marco Antonio Height Measured 2021-06-12 14:36:00 59.00 inches Daryn F Marco Antonio Body Temperature 2021-06-12 14:36:00 97.60 degrees Daryn F Marco Antonio Heart Rate 2021-06-12 14:36:00 80.00 /min Roxanna en F Marco Antonio Respiratory Rate 2021-06-12 14:36:00 Daryn F Marco Antonio BP Systolic 2021-03-12 14:55:00 130 mm[Hg] Step hen F Marco Antonio BP Diastolic 2021-03-12 14:55:00 80 mm[Hg] Russell phen F Marco Antonio Weight Measured 2021-03-12 14:55:00 193.80 pounds Daryn Bernard Height Measured 2021-03-12 14:55:00 59.00 inches Daryn Bernard Body Temperature 2021-03-12 14:55:00 97.50 degrees Daryn Bernard Heart Rate 2021-03-12 14:55:00 82.00 /min Roxanna Bernard Respiratory Rate 2021-03-12 14:55:00 21.00 /min Daryn Bernard Encounters Start Date/Time End Date/Time Encounter Type Admission Type Attending [facility] Care Department Encounter ID Source 2024-04-15 00:00:00 2024-04-15 00:00:00 Outpatient Visit [facility] [id number] Daryn Beranrd 2024-04-12 08:11:11 2024-04-12 08:11:11 Outpatient [facility] 110 Daryn Bernard 2024-04-11 14:35:25 2024-04-11 14:35:25 Outpatient [facility] 110 Daryn Bernard 2024-04-11 00:00:00 2024-04-11 00:00:00 Outpatient Visit [facility] [id number] Daryn Bernard 2024-03-25 13:53:18 2024-03-25 13:53:18 Outpatient [facility] [id number] Daryn Bernard 2024-03-25 00:00:00 2024-03-25 00:00:00 Outpatient Visit [facility] [id number] Daryn Bernard 2024-03-11 15:14:31 2024-03-11 15:14:31 Outpatient S[facility] [id number] Daryn Bernard 2024-03-11 00:00:00 2024-03-11 00:00:00 Outpatient Visit [facility]FA [id number] Daryn Bernard 2024-03-07 14:21:00 2024-03-07 14:21:00 Outpatient [facility] [id number] Daryn Bernard 2024-03-07 00:00:00 2024-03-07 00:00:00 Outpatient Visit SFA [id number] Daryn Bernard 2024-02-16 15:02:21 2024-02-16 15:02:21 Outpatient [facility] 09 Daryn Bernard 2024-02-16 00:00:00 2024-02-16 00:00:00 Outpatient Visit SFA [id number] Daryn Bernard 2023-12-23 09:27:41 2023-12-23 09:27:41 Outpatient SFA [facility] [id number] Daryn Bernard 2023-12-23 00:00:00 2023-12-23 00:00:00 Outpatient Visit SFA [id number] Daryn Bernard 2023-10-21 14:27:25 2023-10-21 14:27:25 Outpatient S[facility] 15 Daryn Bernard 2023-09-29 10:00:00 2023-09-29 10:00:00 Outpatient PATSY VOGT [id number] [facility] 2023-04-08 00:00:00 2023-04-08 00:00:00 Outpatient GC_GCBZW_Ka diyala_S PRIV PRIV [id number] [facility] 2023-03-26 15:12:06 2023-03-26 15:12:06 Outpatient SFA [facility] [id number] Daryn Bernard 2022-07-15 15:33:37 2022-07-15 15:33:37 Outpatient SFA [facility] [id number] Daryn Bernard 2022-03-31 15:35:20 2022-03-31 15:35:20 Outpatient [facility] [id number] Daryn Bernard 2022-03-13 15:56:35 2022-03-13 15:56:35 Outpatient [facility] [id number] Daryn Bernard 2020-10-12 15:15:00 2020-10-12 15:15:00 Outpatient R SIRENA DIEZ [facility] [id number] [facility] 2020-10-11 14:55:37 2020-10-11 15:42:33 Office Visit Sirena Diez [facility] 1..840.114 [id number] [facility] 2020-10-11 14:45:00 2020-10-11 14:45:00 Outpatient R SIRENA DIEZ [facility] [id number] [facility] 2020-10-08 06:54:15 2020-10-08 23:59:00 Hospital Encounter Sirena Diez [facility] 1..840.114 [id number] [facility] 2020-10-08 00:00:00 2020-10-08 00:00:00 Outpatient R SIRENA DIEZ [facility] [id number] [facility] 2020-10-08 00:00:00 2020-10-08 00:00:00 Outpatient R SIRENA DIEZ [facility] [id number] [facility] 2020-09-27 09:03:17 2020-09-27 10:14:12 Office Visit Sirena Diez [facility] 1..840.114 [id number] [facility] 2020-09-27 09:15:00 2020-09-27 09:15:00 Outpatient R SIRENA DIEZ [facility] [id number] [facility] Results Test Description Test Time Test Comments Results Result Co mments Source Daryn BernardHEMOGLOBIN [id number] 00:00:00* Test Item Value Reference Range Interpretation Comme beatriz HEMOGLOBIN A1c (test code = 20333) 9.1 % Daryn [id number] 00:00:00* Test Item Value Reference Range Interpretation Comme nts TSH, THIRD GENERATION (test code = 2821) 1.270 UIU/ML Daryn BernardCOMPREHENSIVE METABOLIC [id number] 00:00:00* Test Item Value Reference Range Interpretation Comme nts GLUCOSE (test code = 2217) 313 MG/DL BUN (test code = 2208) 22 MG/DL CREATININE (test code = 2214) 0.56 MG/DL eGFR (2020 CKD-EPI) (test code = 74705) 113 ML/MIN/1.73 CALC BUN/CREAT (test code = 2235) 39 RATIO SODIUM (test code = 2231) 137 MEQ/L POTASSIUM (test code = 2228) 4.0 MEQ/L CHLORIDE (test code = 2215) 100 MEQ/L CARBON DIOXIDE (test code = 2206) 26 MEQ/L CALCIUM (test code = 2209) 9.3 MG/DL PROTEIN, TOTAL (test code = 2229) 7.5 G/DL ALBUMIN (test code = 2201) 4.1 G/DL CALC GLOBULIN (test code = 2240) 3.4 G/DL CALC A/G RATIO (test code = 2234) 1.2 RATIO BILIRUBIN, TOTAL (test code = 2207) 0.2 MG/DL ALKALINE PHOSPHATASE (test code = 2204) 86 U/L AST (test code = 2218) 11 U/L ALT (test code = 2219) 17 U/L Daryn BernardURINALYSIS W/REFLEX [id number] 00:00:00* Test Item Value Reference Range Interpretation Comme nts COLOR (test code = 1501) YELLOW APPEARANCE (test code = 1502) TURBID SPECIFIC GRAVITY (test code = 1503) 1.034 LEUKOCYTE ESTERASE (test cod e = 1504) NEGATIVE NITRITE (test code = 1505) NEGATIVE pH (test code = 1506) 5.5 PROTEIN (test code = 1507) NEGATIVE GLUCOSE (test code = 1508) 3+ KETONES (test code = 1509) NEGATIVE UROBILINOGEN (test code = 1510) 0.2 MG/DL BILIRUBIN (test code = 1511) NEGATIVE OCCULT BLOOD (test code = 1512) NEGATIVE WHITE BLOOD CELLS (test code = 1513) >50 /HPF RED BLOOD CELLS (test code = 1514) 0-2 /HPF EPITHELIAL CELLS (test code = 07525) 31-50 /HPF BACTERIA (test code = 1515) 3+ CASTS, HYALINE (test code = 1517) TRACE Daryn BernardALBUMIN/CREATININE RATIO, RANDOM [id number] 00:00:00* Test Item Value Reference Range Interpretation Comme nts CREATININE, URINE, CONC. (te st code = 2072) 217.2 MG/DL ALBUMIN, URINE, RANDOM (test code = 14135) 2.2 MG/DL CALC ALBUMIN/CREAT, RND (lili t code = 15434) 10 MG/G Daryn BernardHEMOGLOBIN [id number] 04:50:48* Test Item Value Reference Range Interpretation Comme nts HEMOGLOBIN A1c (test code = 80634) 10.7 % 4.2-5.6 H [employer] GUIDELINES FOR HGB A1C: PREDIABETES/INCREASED RISK . . . . . . . 5.7-6.4% DIAGNOSIS OF DIABETES . . . . . . . . . >=6.5% WITH CONFIRMATION OR APPROPRIATE SYMPTOMS NOTE: ASSAY MAY BE AFFECTED BY HEMOGLOBINOPATHIES (SICKLE CELL ANEMIA, S-C DISEASE, OTHERS) OR ARTIFICIALLY LOWERED BY DECREASED RED CELL SURVIVAL (HEMOLYTIC ANEMIAS, BLOOD LOSS, ETC.). CONSIDER ALTERNATE TESTING OR LABORATORY CONSULTATION. COMPREHENSIVE METABOLIC [id number] 03:35:09* Test Item Value Reference Range Interpretation Comme nts GLUCOSE (test code = 2217) 246 MG/DL 70-99 H BUN (test code = 2208) 16 MG/DL 6-20 CREATININE (test code = 2214) 0.65 MG/DL 0.60-1.30 eGFR (2020 CKD-EPI) (test code = 02967) 109 ML/MIN/1.73 >60 CALC BUN/CREAT (test code = 2235) 25 RATIO 6-28 SODIUM (test code = 223) 138 MEQ/L 133-146 POTASSIUM (test code = 2228) 3.7 MEQ/L 3.5-5.4 CHLORIDE (test code = 2215) 100 MEQ/L 95-107 CARBON DIOXIDE (test code = 2206) 25 MEQ/L 19-31 CALCIUM (test code = 2209) 9.8 MG/DL 8.5-10.5 PROTEIN, TOTAL (test code = 222) 7.2 G/DL 6.1-8.3 ALBUMIN (test code = 220) 4.0 G/DL 3.5-5.2 CALC GLOBULIN (test code = 2240) 3.2 G/DL 1.9-3.7 CALC A/G RATIO (test code = 2234) 1.3 RATIO 1.0-2.6 BILIRUBIN, TOTAL (test code = 220) 0.2 MG/DL <=1.2 ALKALINE PHOSPHATASE (test code = 220) 95 U/L 40-120 AST (test code = 221) 13 U/L 9-40 ALT (test code = 2219) 19 U/L 5-40 UNLESS OTHERWISE INDICATED, ALL TESTING PERFORMED AT [facility] [address] [place] [address] DNA SEQUENCING ASSOCIATE: SERA MACKAY M.D. CLIA NUMBER [id number] [facility] [place]. [id number] LIPID [id number] 03:35:09* Test Item Value Reference Range Interpretation Comme nts CHOLESTEROL (test code = 2210) 198 MG/DL <200 TRIGLYCERIDES (test code = 2232) 228 MG/DL <150 H HDL CHOLESTEROL (test code = 2220) 42 MG/DL >39 CALC LDL CHOL (test code = 2237) 121 MG/DL <100 H NOTE: CALCULATED LDL IS BASED ON RONI-CROW METHOD WHICHINCLUDES ADJUSTABLE TRIGLYCERIDE:VLDL CHOLESTEROL RATIO.THIS FACTOR VARIES BY MEASURED TRIGLYCERIDE AND NON-HDLCHOLESTEROL CONCENTRATIONS WITH INCREASED CALCULATED LDL SEENIN HIGHER TRIGLYCERIDE OR LOWER NON-HDL SPECIMENS. FOR MOREINFORMATION, SEE CLIENT ANNOUNCEMENT AT [email or web address] RISK RATIO LDL/HDL (test code = 2238) 2.88 RATIO <3.22 HEMOGLOBIN [id number] 00:00:00* Test Item Value Reference Range Interpretation Comme nts HEMOGLOBIN A1c (test code = 73428) 10.7 % Daryn BernardLIPID [id number] 00:00:00* Test Item Value Reference Range Interpretation Comme nts CHOLESTEROL (test code = 2210) 198 MG/DL TRIGLYCERIDES (test code = 2232) 228 MG/DL HDL CHOLESTEROL (test code = 2220) 42 MG/DL CALC LDL CHOL (test code = 2237) 121 MG/DL RISK RATIO LDL/HDL (test cod e = 2238) 2.88 RATIO Daryn BernardCOMPREHENSIVE METABOLIC [id number] 00:00:00* Test Item Value Reference Range Interpretation Comme nts GLUCOSE (test code = 2217) 246 MG/DL BUN (test code = 2208) 16 MG/DL CREATININE (test code = 2214) 0.65 MG/DL eGFR (2020 CKD-EPI) (test code = 82598) 109 ML/MIN/1.73 CALC BUN/CREAT (test code = 2235) 25 RATIO SODIUM (test code = 2231) 138 MEQ/L POTASSIUM (test code = 2228) 3.7 MEQ/L CHLORIDE (test code = 2215) 100 MEQ/L CARBON DIOXIDE (test code = 2206) 25 MEQ/L CALCIUM (test code = 2209) 9.8 MG/DL PROTEIN, TOTAL (test code = 2229) 7.2 G/DL ALBUMIN (test code = 2201) 4.0 G/DL CALC GLOBULIN (test code = 2240) 3.2 G/DL CALC A/G RATIO (test code = 2234) 1.3 RATIO BILIRUBIN, TOTAL (test code = 2207) 0.2 MG/DL ALKALINE PHOSPHATASE (test code = 2204) 95 U/L AST (test code = 2218) 13 U/L ALT (test code = 2219) 19 U/L Daryn BernardHEMOGLOBIN [id number] 00:00:00* Test Item Value Reference Range Interpretation Comme nts HEMOGLOBIN A1c (test code = 29629) 10.7 % Daryn BernardLIPID [id number] 00:00:00* Test Item Value Reference Range Interpretation Comme nts CHOLESTEROL (test code = 2210) 198 MG/DL TRIGLYCERIDES (test code = 2232) 228 MG/DL HDL CHOLESTEROL (test code = 2220) 42 MG/DL CALC LDL CHOL (test code = 2237) 121 MG/DL RISK RATIO LDL/HDL (test cod e = 2238) 2.88 RATIO Daryn BernardCOMPREHENSIVE METABOLIC [id number] 00:00:00* Test Item Value Reference Range Interpretation Comme nts GLUCOSE (test code = 2217) 246 MG/DL BUN (test code = 2208) 16 MG/DL CREATININE (test code = 2214) 0.65 MG/DL eGFR (2020 CKD-EPI) (test code = 58777) 109 ML/MIN/1.73 CALC BUN/CREAT (test code = 2235) 25 RATIO SODIUM (test code = 2231) 138 MEQ/L POTASSIUM (test code = 2228) 3.7 MEQ/L CHLORIDE (test code = 2215) 100 MEQ/L CARBON DIOXIDE (test code = 2206) 25 MEQ/L CALCIUM (test code = 2209) 9.8 MG/DL PROTEIN, TOTAL (test code = 2229) 7.2 G/DL ALBUMIN (test code = 2201) 4.0 G/DL CALC GLOBULIN (test code = 2240) 3.2 G/DL CALC A/G RATIO (test code = 2234) 1.3 RATIO BILIRUBIN, TOTAL (test code = 2207) 0.2 MG/DL ALKALINE PHOSPHATASE (test code = 2204) 95 U/L AST (test code = 2218) 13 U/L ALT (test code = 2219) 19 U/L Daryn BernardHEMOGLOBIN [id number] 00:00:00* Test Item Value Reference Range Interpretation Comme nts HEMOGLOBIN A1c (test code = 66436) 10.7 % Daryn Cronin AustinLIPID [id number] 00:00:00* Test Item Value Reference Range Interpretation Comme nts CHOLESTEROL (test code = 2210) 198 MG/DL TRIGLYCERIDES (test code = 2232) 228 MG/DL HDL CHOLESTEROL (test code = 2220) 42 MG/DL CALC LDL CHOL (test code = 2237) 121 MG/DL RISK RATIO LDL/HDL (test cod e = 2238) 2.88 RATIO Daryn BernardCOMPREHENSIVE METABOLIC [id number] 00:00:00* Test Item Value Reference Range Interpretation Comme nts GLUCOSE (test code = 2217) 246 MG/DL BUN (test code = 2208) 16 MG/DL CREATININE (test code = 2214) 0.65 MG/DL eGFR (2020 CKD-EPI) (test code = 97171) 109 ML/MIN/1.73 CALC BUN/CREAT (test code = 2235) 25 RATIO SODIUM (test code = 2231) 138 MEQ/L POTASSIUM (test code = 2228) 3.7 MEQ/L CHLORIDE (test code = 2215) 100 MEQ/L CARBON DIOXIDE (test code = 2206) 25 MEQ/L CALCIUM (test code = 2209) 9.8 MG/DL PROTEIN, TOTAL (test code = 2229) 7.2 G/DL ALBUMIN (test code = 2201) 4.0 G/DL CALC GLOBULIN (test code = 2240) 3.2 G/DL CALC A/G RATIO (test code = 2234) 1.3 RATIO BILIRUBIN, TOTAL (test code = 2207) 0.2 MG/DL ALKALINE PHOSPHATASE (test code = 2204) 95 U/L AST (test code = 2218) 13 U/L ALT (test code = 2219) 19 U/L Daryn BernardHEMOGLOBIN [id number] 00:00:00* Test Item Value Reference Range Interpretation Comme nts HEMOGLOBIN A1c (test code = 14442) 10.7 % Daryn BernardLIPID [id number] 00:00:00* Test Item Value Reference Range Interpretation Comme nts CHOLESTEROL (test code = 2210) 198 MG/DL TRIGLYCERIDES (test code = 2232) 228 MG/DL HDL CHOLESTEROL (test code = 2220) 42 MG/DL CALC LDL CHOL (test code = 2237) 121 MG/DL RISK RATIO LDL/HDL (test cod e = 2238) 2.88 RATIO Daryn BernardCOMPREHENSIVE METABOLIC [id number] 00:00:00* Test Item Value Reference Range Interpretation Comme nts GLUCOSE (test code = 2217) 246 MG/DL BUN (test code = 2208) 16 MG/DL CREATININE (test code = 2214) 0.65 MG/DL eGFR (2020 CKD-EPI) (test code = 02579) 109 ML/MIN/1.73 CALC BUN/CREAT (test code = 2235) 25 RATIO SODIUM (test code = 2231) 138 MEQ/L POTASSIUM (test code = 2228) 3.7 MEQ/L CHLORIDE (test code = 2215) 100 MEQ/L CARBON DIOXIDE (test code = 2206) 25 MEQ/L CALCIUM (test code = 2209) 9.8 MG/DL PROTEIN, TOTAL (test code = 2229) 7.2 G/DL ALBUMIN (test code = 2201) 4.0 G/DL CALC GLOBULIN (test code = 2240) 3.2 G/DL CALC A/G RATIO (test code = 2234) 1.3 RATIO BILIRUBIN, TOTAL (test code = 2207) 0.2 MG/DL ALKALINE PHOSPHATASE (test code = 2204) 95 U/L AST (test code = 2218) 13 U/L ALT (test code = 2219) 19 U/L Daryn BernardHEMOGLOBIN [id number] 00:00:00* Test Item Value Reference Range Interpretation Comme beatriz HEMOGLOBIN A1c (test code = 79764) 10.7 % Daryn BernardLIPID [id number] 00:00:00* Test Item Value Reference Range Interpretation Comme nts CHOLESTEROL (test code = 2210) 198 MG/DL TRIGLYCERIDES (test code = 2232) 228 MG/DL HDL CHOLESTEROL (test code = 2220) 42 MG/DL CALC LDL CHOL (test code = 2237) 121 MG/DL RISK RATIO LDL/HDL (test cod e = 2238) 2.88 RATIO Daryn BernardCOMPREHENSIVE METABOLIC [id number] 00:00:00* Test Item Value Reference Range Interpretation Comme nts GLUCOSE (test code = 2217) 246 MG/DL BUN (test code = 2208) 16 MG/DL CREATININE (test code = 2214) 0.65 MG/DL eGFR (2020 CKD-EPI) (test code = 92714) 109 ML/MIN/1.73 CALC BUN/CREAT (test code = 2235) 25 RATIO SODIUM (test code = 2231) 138 MEQ/L POTASSIUM (test code = 2228) 3.7 MEQ/L CHLORIDE (test code = 2215) 100 MEQ/L CARBON DIOXIDE (test code = 2206) 25 MEQ/L CALCIUM (test code = 2209) 9.8 MG/DL PROTEIN, TOTAL (test code = 2229) 7.2 G/DL ALBUMIN (test code = 2201) 4.0 G/DL CALC GLOBULIN (test code = 2240) 3.2 G/DL CALC A/G RATIO (test code = 2234) 1.3 RATIO BILIRUBIN, TOTAL (test code = 2207) 0.2 MG/DL ALKALINE PHOSPHATASE (test code = 2204) 95 U/L AST (test code = 2218) 13 U/L ALT (test code = 2219) 19 U/L Daryn BernardALBUMIN/CREATININE RATIO, URINE, [id number] 06:22:49* Test Item Value Reference Range Interpretation Comme nts CREATININE, URINE, CONC. (test code = 2072) 188.7 MG/DL NOT ESTAB ALBUMIN, URINE, RANDOM (test code = 29849) 3.7 MG/DL NOT ESTAB CALC ALBUMIN/CREAT, RND (test code = 43498) 20 MG/G <30 Note: Albumin/Cr eatinine ratio reference interval reflects ADA and NKF guidelines. UNLESS OTHERWISE INDICATED, ALL TESTING PERFORMED AT [email or web address] [address] [place] [address] DNA SEQUENCING ASSOCIATE: SERA MACKAY M.D. CLIA NUMBER [id number] [facility] [place]. [id number] HEMOGLOBIN [id number] 04:36:27* Test Item Value Reference Range Interpretation Comme nts HEMOGLOBIN A1c (test code = 96663) 11.1 % 4.2-5.6 H [employer] GUIDELINES FOR HGB A1C: PREDIABETES/INCREASED RISK . . . . . . . 5.7-6.4% DIAGNOSIS OF DIABETES . . . . . . . . . >=6.5% WITH CONFIRMATION OR APPROPRIATE SYMPTOMS NOTE: ASSAY MAY BE AFFECTED BY HEMOGLOBINOPATHIES (SICKLE CELL ANEMIA, S-C DISEASE, OTHERS) OR ARTIFICIALLY LOWERED BY DECREASED RED CELL SURVIVAL (HEMOLYTIC ANEMIAS, BLOOD LOSS, ETC.). CONSIDER ALTERNATE TESTING OR LABORATORY CONSULTATION. COMPREHENSIVE METABOLIC [id number] 04:30:25* Test Item Value Reference Range Interpretation Comme nts GLUCOSE (test code = 2217) 280 MG/DL 70-99 H BUN (test code = 8) 13 MG/DL 6-20 CREATININE (test code = 2214) 0.49 MG/DL 0.60-1.30 L eGFR (2020 CKD-EPI) (test code = 29108) 117 ML/MIN/1.73 >60 CALC BUN/CREAT (test code = 2234) 27 RATIO 6-28 SODIUM (test code = 2230) 138 MEQ/L 133-146 POTASSIUM (test code = 2227) 3.7 MEQ/L 3.5-5.4 CHLORIDE (test code = 2214) 100 MEQ/L 95-107 CARBON DIOXIDE (test code = 2205) 25 MEQ/L 19-31 CALCIUM (test code = 2208) 9.6 MG/DL 8.5-10.5 PROTEIN, TOTAL (test code = 2228) 7.2 G/DL 6.1-8.3 ALBUMIN (test code = 2200) 3.9 G/DL 3.5-5.2 CALC GLOBULIN (test code = 2239) 3.3 G/DL 1.9-3.7 CALC A/G RATIO (test code = 2233) 1.2 RATIO 1.0-2.6 BILIRUBIN, TOTAL (test code = 2206) 0.5 MG/DL <=1.2 ALKALINE PHOSPHATASE (test code = 2203) 101 U/L 40-120 AST (test code = 2217) 14 U/L 9-40 ALT (test code = 221) 17 U/L 5-40 LIPID [id number] 04:30:25* Test Item Value Reference Range Interpretation Comme nts CHOLESTEROL (test code = 2210) 204 MG/DL <200 H TRIGLYCERIDES (test code = 2232) 265 MG/DL <150 H HDL CHOLESTEROL (test code = 2219) 47 MG/DL >39 CALC LDL CHOL (test code = 2236) 119 MG/DL <100 H NOTE: CALCULATED LDL IS BASED ON RONI-CROW METHOD WHICHINCLUDES ADJUSTABLE TRIGLYCERIDE:VLDL CHOLESTEROL RATIO.THIS FACTOR VARIES BY MEASURED TRIGLYCERIDE AND NON-HDLCHOLESTEROL CONCENTRATIONS WITH INCREASED CALCULATED LDL SEENIN HIGHER TRIGLYCERIDE OR LOWER NON-HDL SPECIMENS. FOR MOREINFORMATION, SEE CLIENT ANNOUNCEMENT AT [email or web address] RISK RATIO LDL/HDL (test code = 223) 2.53 RATIO <3.22 COMPREHENSIVE METABOLIC [id number] 00:00:00* Test Item Value Reference Range Interpretation Comme nts GLUCOSE (test code = 2217) 280 MG/DL BUN (test code = 2208) 13 MG/DL CREATININE (test code = 2214) 0.49 MG/DL eGFR (2020 CKD-EPI) (test code = 11300) 117 ML/MIN/1.73 CALC BUN/CREAT (test code = 2235) 27 RATIO SODIUM (test code = 2231) 138 MEQ/L POTASSIUM (test code = 2228) 3.7 MEQ/L CHLORIDE (test code = 2215) 100 MEQ/L CARBON DIOXIDE (test code = 2206) 25 MEQ/L CALCIUM (test code = 2209) 9.6 MG/DL PROTEIN, TOTAL (test code = 2229) 7.2 G/DL ALBUMIN (test code = 2201) 3.9 G/DL CALC GLOBULIN (test code = 2240) 3.3 G/DL CALC A/G RATIO (test code = 2234) 1.2 RATIO BILIRUBIN, TOTAL (test code = 2207) 0.5 MG/DL ALKALINE PHOSPHATASE (test code = 2204) 101 U/L AST (test code = 2218) 14 U/L ALT (test code = 2219) 17 U/L Daryn BernardLIPID [id number] 00:00:00* Test Item Value Reference Range Interpretation Comme nts CHOLESTEROL (test code = 2210) 204 MG/DL TRIGLYCERIDES (test code = 2232) 265 MG/DL HDL CHOLESTEROL (test code = 2220) 47 MG/DL CALC LDL CHOL (test code = 2237) 119 MG/DL RISK RATIO LDL/HDL (test cod e = 2238) 2.53 RATIO Daryn BernardHEMOGLOBIN [id number] 00:00:00* Test Item Value Reference Range Interpretation Comme nts HEMOGLOBIN A1c (test code = 52215) 11.1 % Daryn Cronin Marco AntonioALBUMIN/CREATININE RATIO, RANDOM [id number] 00:00:00* Test Item Value Reference Range Interpretation Comme nts CREATININE, URINE, CONC. (te st code = 2072) 188.7 MG/DL ALBUMIN, URINE, RANDOM (test code = 37333) 3.7 MG/DL CALC ALBUMIN/CREAT, RND (lili t code = 40888) 20 MG/G Daryn Cronin Marco AntonioCOMPREHENSIVE METABOLIC [id number] 00:00:00* Test Item Value Reference Range Interpretation Comme nts GLUCOSE (test code = 2217) 280 MG/DL BUN (test code = 2208) 13 MG/DL CREATININE (test code = 2214) 0.49 MG/DL eGFR (2020 CKD-EPI) (test code = 99805) 117 ML/MIN/1.73 CALC BUN/CREAT (test code = 2235) 27 RATIO SODIUM (test code = 2231) 138 MEQ/L POTASSIUM (test code = 2228) 3.7 MEQ/L CHLORIDE (test code = 2215) 100 MEQ/L CARBON DIOXIDE (test code = 2206) 25 MEQ/L CALCIUM (test code = 2209) 9.6 MG/DL PROTEIN, TOTAL (test code = 2229) 7.2 G/DL ALBUMIN (test code = 2201) 3.9 G/DL CALC GLOBULIN (test code = 2240) 3.3 G/DL CALC A/G RATIO (test code = 2234) 1.2 RATIO BILIRUBIN, TOTAL (test code = 2207) 0.5 MG/DL ALKALINE PHOSPHATASE (test code = 2204) 101 U/L AST (test code = 2218) 14 U/L ALT (test code = 2219) 17 U/L Daryn BernardLIPID [id number] 00:00:00* Test Item Value Reference Range Interpretation Comme nts CHOLESTEROL (test code = 2210) 204 MG/DL TRIGLYCERIDES (test code = 2232) 265 MG/DL HDL CHOLESTEROL (test code = 2220) 47 MG/DL CALC LDL CHOL (test code = 2237) 119 MG/DL RISK RATIO LDL/HDL (test cod e = 2238) 2.53 RATIO Daryn BernardHEMOGLOBIN [id number] 00:00:00* Test Item Value Reference Range Interpretation Comme nts HEMOGLOBIN A1c (test code = 79506) 11.1 % Daryn BernardALBUMIN/CREATININE RATIO, RANDOM [id number] 00:00:00* Test Item Value Reference Range Interpretation Comme nts CREATININE, URINE, CONC. (te st code = 2072) 188.7 MG/DL ALBUMIN, URINE, RANDOM (test code = 72157) 3.7 MG/DL CALC ALBUMIN/CREAT, RND (lili t code = 14058) 20 MG/G Daryn Cronin Marco AntonioCOMPREHENSIVE METABOLIC [id number] 00:00:00* Test Item Value Reference Range Interpretation Comme nts GLUCOSE (test code = 2217) 280 MG/DL BUN (test code = 2208) 13 MG/DL CREATININE (test code = 2214) 0.49 MG/DL eGFR (2020 CKD-EPI) (test code = 75875) 117 ML/MIN/1.73 CALC BUN/CREAT (test code = 2235) 27 RATIO SODIUM (test code = 2231) 138 MEQ/L POTASSIUM (test code = 2228) 3.7 MEQ/L CHLORIDE (test code = 2215) 100 MEQ/L CARBON DIOXIDE (test code = 2206) 25 MEQ/L CALCIUM (test code = 2209) 9.6 MG/DL PROTEIN, TOTAL (test code = 2229) 7.2 G/DL ALBUMIN (test code = 2201) 3.9 G/DL CALC GLOBULIN (test code = 2240) 3.3 G/DL CALC A/G RATIO (test code = 2234) 1.2 RATIO BILIRUBIN, TOTAL (test code = 2207) 0.5 MG/DL ALKALINE PHOSPHATASE (test code = 2204) 101 U/L AST (test code = 2218) 14 U/L ALT (test code = 2219) 17 U/L Daryn BernardLIPID [id number] 00:00:00* Test Item Value Reference Range Interpretation Comme nts CHOLESTEROL (test code = 2210) 204 MG/DL TRIGLYCERIDES (test code = 2232) 265 MG/DL HDL CHOLESTEROL (test code = 2220) 47 MG/DL CALC LDL CHOL (test code = 2237) 119 MG/DL RISK RATIO LDL/HDL (test cod e = 2238) 2.53 RATIO Daryn BernardHEMOGLOBIN [id number] 00:00:00* Test Item Value Reference Range Interpretation Comme nts HEMOGLOBIN A1c (test code = 07856) 11.1 % Daryn BernardALBUMIN/CREATININE RATIO, RANDOM [id number] 00:00:00* Test Item Value Reference Range Interpretation Comme nts CREATININE, URINE, CONC. (te st code = 2072) 188.7 MG/DL ALBUMIN, URINE, RANDOM (test code = 40745) 3.7 MG/DL CALC ALBUMIN/CREAT, RND (lili t code = 61574) 20 MG/G Daryn BernardCOMPREHENSIVE METABOLIC [id number] 00:00:00* Test Item Value Reference Range Interpretation Comme nts GLUCOSE (test code = 2217) 280 MG/DL BUN (test code = 2208) 13 MG/DL CREATININE (test code = 2214) 0.49 MG/DL eGFR (2020 CKD-EPI) (test code = 41203) 117 ML/MIN/1.73 CALC BUN/CREAT (test code = 2235) 27 RATIO SODIUM (test code = 2231) 138 MEQ/L POTASSIUM (test code = 2228) 3.7 MEQ/L CHLORIDE (test code = 2215) 100 MEQ/L CARBON DIOXIDE (test code = 2206) 25 MEQ/L CALCIUM (test code = 2209) 9.6 MG/DL PROTEIN, TOTAL (test code = 2229) 7.2 G/DL ALBUMIN (test code = 2201) 3.9 G/DL CALC GLOBULIN (test code = 2240) 3.3 G/DL CALC A/G RATIO (test code = 2234) 1.2 RATIO BILIRUBIN, TOTAL (test code = 2207) 0.5 MG/DL ALKALINE PHOSPHATASE (test code = 2204) 101 U/L AST (test code = 2218) 14 U/L ALT (test code = 2219) 17 U/L Daryn BernardLIPID [id number] 00:00:00* Test Item Value Reference Range Interpretation Comme nts CHOLESTEROL (test code = 2210) 204 MG/DL TRIGLYCERIDES (test code = 2232) 265 MG/DL HDL CHOLESTEROL (test code = 2220) 47 MG/DL CALC LDL CHOL (test code = 2237) 119 MG/DL RISK RATIO LDL/HDL (test cod e = 2238) 2.53 RATIO Daryn BernardHEMOGLOBIN [id number] 00:00:00* Test Item Value Reference Range Interpretation Comme beatriz HEMOGLOBIN A1c (test code = 55116) 11.1 % Daryn BernardALBUMIN/CREATININE RATIO, RANDOM [id number] 00:00:00* Test Item Value Reference Range Interpretation Comme nts CREATININE, URINE, CONC. (te st code = 2072) 188.7 MG/DL ALBUMIN, URINE, RANDOM (test code = 93367) 3.7 MG/DL CALC ALBUMIN/CREAT, RND (lili t code = 55372) 20 MG/G Daryn BernardCOMPREHENSIVE METABOLIC [id number] 00:00:00* Test Item Value Reference Range Interpretation Comme nts GLUCOSE (test code = 2217) 280 MG/DL BUN (test code = 2208) 13 MG/DL CREATININE (test code = 2214) 0.49 MG/DL eGFR (2020 CKD-EPI) (test code = 23653) 117 ML/MIN/1.73 CALC BUN/CREAT (test code = 2235) 27 RATIO SODIUM (test code = 2231) 138 MEQ/L POTASSIUM (test code = 2228) 3.7 MEQ/L CHLORIDE (test code = 2215) 100 MEQ/L CARBON DIOXIDE (test code = 2206) 25 MEQ/L CALCIUM (test code = 2209) 9.6 MG/DL PROTEIN, TOTAL (test code = 2229) 7.2 G/DL ALBUMIN (test code = 2201) 3.9 G/DL CALC GLOBULIN (test code = 2240) 3.3 G/DL CALC A/G RATIO (test code = 2234) 1.2 RATIO BILIRUBIN, TOTAL (test code = 2207) 0.5 MG/DL ALKALINE PHOSPHATASE (test code = 2204) 101 U/L AST (test code = 2218) 14 U/L ALT (test code = 2219) 17 U/L Daryn BernardLIPID [id number] 00:00:00* Test Item Value Reference Range Interpretation Comme nts CHOLESTEROL (test code = 2210) 204 MG/DL TRIGLYCERIDES (test code = 2232) 265 MG/DL HDL CHOLESTEROL (test code = 2220) 47 MG/DL CALC LDL CHOL (test code = 2237) 119 MG/DL RISK RATIO LDL/HDL (test cod e = 2238) 2.53 RATIO Daryn BernardHEMOGLOBIN [id number] 00:00:00* Test Item Value Reference Range Interpretation Comme beatriz HEMOGLOBIN A1c (test code = 40584) 11.1 % Daryn BernardALBUMIN/CREATININE RATIO, RANDOM [id number] 00:00:00* Test Item Value Reference Range Interpretation Comme nts CREATININE, URINE, CONC. (te st code = 2072) 188.7 MG/DL ALBUMIN, URINE, RANDOM (test code = 64251) 3.7 MG/DL CALC ALBUMIN/CREAT, RND (lili t code = 20281) 20 MG/G Daryn BernardCOMPREHENSIVE METABOLIC [id number] 00:00:00* Test Item Value Reference Range Interpretation Comme nts GLUCOSE (test code = 2217) 280 MG/DL BUN (test code = 2208) 13 MG/DL CREATININE (test code = 2214) 0.49 MG/DL eGFR (2020 CKD-EPI) (test code = 71688) 117 ML/MIN/1.73 CALC BUN/CREAT (test code = 2235) 27 RATIO SODIUM (test code = 2231) 138 MEQ/L POTASSIUM (test code = 2228) 3.7 MEQ/L CHLORIDE (test code = 2215) 100 MEQ/L CARBON DIOXIDE (test code = 2206) 25 MEQ/L CALCIUM (test code = 2209) 9.6 MG/DL PROTEIN, TOTAL (test code = 2229) 7.2 G/DL ALBUMIN (test code = 2201) 3.9 G/DL CALC GLOBULIN (test code = 2240) 3.3 G/DL CALC A/G RATIO (test code = 2234) 1.2 RATIO BILIRUBIN, TOTAL (test code = 2207) 0.5 MG/DL ALKALINE PHOSPHATASE (test code = 2204) 101 U/L AST (test code = 2218) 14 U/L ALT (test code = 2219) 17 U/L Daryn BernardLIPID [id number] 00:00:00* Test Item Value Reference Range Interpretation Comme nts CHOLESTEROL (test code = 2210) 204 MG/DL TRIGLYCERIDES (test code = 2232) 265 MG/DL HDL CHOLESTEROL (test code = 2220) 47 MG/DL CALC LDL CHOL (test code = 2237) 119 MG/DL RISK RATIO LDL/HDL (test cod e = 2238) 2.53 RATIO Daryn BernardHEMOGLOBIN [id number] 00:00:00* Test Item Value Reference Range Interpretation Comme beatriz HEMOGLOBIN A1c (test code = 98488) 11.1 % Daryn BernardALBUMIN/CREATININE RATIO, RANDOM [id number] 00:00:00* Test Item Value Reference Range Interpretation Comme beatriz CREATININE, URINE, CONC. (te st code = 2072) 188.7 MG/DL ALBUMIN, URINE, RANDOM (test code = 26183) 3.7 MG/DL CALC ALBUMIN/CREAT, RND (lili t code = 40109) 20 MG/G Daryn BernardHEMOGLOBIN [id number] 06:42:39* Test Item Value Reference Range Interpretation Comme nts HEMOGLOBIN A1c (test code = 91731) 9.7 % 4.2-5.6 H [employer] GUIDELINES FOR HGB A1C: PREDIABETES/INCREASED RISK . . . . . . . 5.7-6.4% DIAGNOSIS OF DIABETES . . . . . . . . . >=6.5% WITH CONFIRMATION OR APPROPRIATE SYMPTOMS NOTE: ASSAY MAY BE AFFECTED BY HEMOGLOBINOPATHIES (SICKLE CELL ANEMIA, S-C DISEASE, OTHERS) OR ARTIFICIALLY LOWERED BY DECREASED RED CELL SURVIVAL (HEMOLYTIC ANEMIAS, BLOOD LOSS, ETC.). CONSIDER ALTERNATE TESTING OR LABORATORY CONSULTATION. UNLESS OTHERWISE INDICATED, ALL TESTING PERFORMED [facility] [email or web address] [address] [place] [id number] DNA SEQUENCING ASSOCIATE: HENRIK MIMS M.D. CLIA NUMBER [id number] [facility] [place]. [id number] COMPREHENSIVE METABOLIC [id number] 05:52:46* Test Item Value Reference Range Interpretation Comme nts GLUCOSE (test code = 2217) 249 MG/DL 70-99 H BUN (test code = 2208) 14 MG/DL 6-20 CREATININE (test code = 2214) 0.58 MG/DL 0.60-1.30 L eGFR (2020 CKD-EPI) (test code = 64657) 114 ML/MIN/1.73 >60 CALC BUN/CREAT (test code = 2235) 24 RATIO 6-28 SODIUM (test code = 2231) 141 MEQ/L 133-146 POTASSIUM (test code = 2228) 4.0 MEQ/L 3.5-5.4 CHLORIDE (test code = 2215) 101 MEQ/L 95-107 CARBON DIOXIDE (test code = 2206) 28 MEQ/L 19-31 CALCIUM (test code = 2209) 9.5 MG/DL 8.5-10.5 PROTEIN, TOTAL (test code = 222) 7.3 G/DL 6.1-8.3 ALBUMIN (test code = 2200) 4.1 G/DL 3.5-5.2 CALC GLOBULIN (test code = 2240) 3.2 G/DL 1.9-3.7 CALC A/G RATIO (test code = 2234) 1.3 RATIO 1.0-2.6 BILIRUBIN, TOTAL (test code = 2207) 0.3 MG/DL See_Comment [Automated me ssage] The system which generated this result transmitted reference range: <=1.2. The reference range was not used to interpret this result as normal/abnormal. ALKALINE PHOSPHATASE (test code = 2203) 94 U/L 40-115 AST (test code = 2218) 17 U/L 9-40 ALT (test code = 2219) 25 U/L 5-40 COMPREHENSIVE METABOLIC [id number] 00:00:00* Test Item Value Reference Range Interpretation Comme nts GLUCOSE (test code = 7) 249 MG/DL BUN (test code = 8) 14 MG/DL CREATININE (test code = 2214) 0.58 MG/DL eGFR (2020 CKD-EPI) (test code = 07226) 114 ML/MIN/1.73 CALC BUN/CREAT (test code = 2235) 24 RATIO SODIUM (test code = 2231) 141 MEQ/L POTASSIUM (test code = 2228) 4.0 MEQ/L CHLORIDE (test code = 2215) 101 MEQ/L CARBON DIOXIDE (test code = 2206) 28 MEQ/L CALCIUM (test code = 2209) 9.5 MG/DL PROTEIN, TOTAL (test code = 2229) 7.3 G/DL ALBUMIN (test code = 2201) 4.1 G/DL CALC GLOBULIN (test code = 2240) 3.2 G/DL CALC A/G RATIO (test code = 2234) 1.3 RATIO BILIRUBIN, TOTAL (test code = 2207) 0.3 MG/DL ALKALINE PHOSPHATASE (test code = 2204) 94 U/L AST (test code = 2218) 17 U/L ALT (test code = 2219) 25 U/L Daryn BernardHEMOGLOBIN [id number] 00:00:00* Test Item Value Reference Range Interpretation Comme nts HEMOGLOBIN A1c (test code = 11154) 9.7 % Daryn BernardCOMPREHENSIVE METABOLIC [id number] 00:00:00* Test Item Value Reference Range Interpretation Comme nts GLUCOSE (test code = 2217) 249 MG/DL BUN (test code = 2208) 14 MG/DL CREATININE (test code = 2214) 0.58 MG/DL eGFR (2020 CKD-EPI) (test code = 03168) 114 ML/MIN/1.73 CALC BUN/CREAT (test code = 2235) 24 RATIO SODIUM (test code = 2231) 141 MEQ/L POTASSIUM (test code = 2228) 4.0 MEQ/L CHLORIDE (test code = 2215) 101 MEQ/L CARBON DIOXIDE (test code = 2206) 28 MEQ/L CALCIUM (test code = 2209) 9.5 MG/DL PROTEIN, TOTAL (test code = 2229) 7.3 G/DL ALBUMIN (test code = 2201) 4.1 G/DL CALC GLOBULIN (test code = 2240) 3.2 G/DL CALC A/G RATIO (test code = 2234) 1.3 RATIO BILIRUBIN, TOTAL (test code = 2207) 0.3 MG/DL ALKALINE PHOSPHATASE (test code = 2204) 94 U/L AST (test code = 2218) 17 U/L ALT (test code = 2219) 25 U/L Daryn BernardHEMOGLOBIN [id number] 00:00:00* Test Item Value Reference Range Interpretation Comme [facility] HEMOGLOBIN A1c (test code = 51489) 9.7 % Daryn BernardCOMPREHENSIVE METABOLIC [id number] 00:00:00* Test Item Value Reference Range Interpretation Comme nts GLUCOSE (test code = 2217) 249 MG/DL BUN (test code = 2208) 14 MG/DL CREATININE (test code = 2214) 0.58 MG/DL eGFR (2020 CKD-EPI) (test code = 81281) 114 ML/MIN/1.73 CALC BUN/CREAT (test code = 2235) 24 RATIO SODIUM (test code = 2231) 141 MEQ/L POTASSIUM (test code = 2228) 4.0 MEQ/L CHLORIDE (test code = 2215) 101 MEQ/L CARBON DIOXIDE (test code = 2206) 28 MEQ/L CALCIUM (test code = 2209) 9.5 MG/DL PROTEIN, TOTAL (test code = 2229) 7.3 G/DL ALBUMIN (test code = 2201) 4.1 G/DL CALC GLOBULIN (test code = 2240) 3.2 G/DL CALC A/G RATIO (test code = 2234) 1.3 RATIO BILIRUBIN, TOTAL (test code = 2207) 0.3 MG/DL ALKALINE PHOSPHATASE (test code = 2204) 94 U/L AST (test code = 2218) 17 U/L ALT (test code = 2219) 25 U/L Daryn Cronin AustinHEMOGLOBIN [id number] 00:00:00* Test Item Value Reference Range Interpretation Comme nts HEMOGLOBIN A1c (test code = 84098) 9.7 % Daryn Cronin AustinCOMPREHENSIVE METABOLIC [id number] 00:00:00* Test Item Value Reference Range Interpretation Comme nts GLUCOSE (test code = 2217) 249 MG/DL BUN (test code = 2208) 14 MG/DL CREATININE (test code = 2214) 0.58 MG/DL eGFR (2020 CKD-EPI) (test code = 01379) 114 ML/MIN/1.73 CALC BUN/CREAT (test code = 2235) 24 RATIO SODIUM (test code = 2231) 141 MEQ/L POTASSIUM (test code = 2228) 4.0 MEQ/L CHLORIDE (test code = 2215) 101 MEQ/L CARBON DIOXIDE (test code = 2206) 28 MEQ/L CALCIUM (test code = 2209) 9.5 MG/DL PROTEIN, TOTAL (test code = 2229) 7.3 G/DL ALBUMIN (test code = 2201) 4.1 G/DL CALC GLOBULIN (test code = 2240) 3.2 G/DL CALC A/G RATIO (test code = 2234) 1.3 RATIO BILIRUBIN, TOTAL (test code = 2207) 0.3 MG/DL ALKALINE PHOSPHATASE (test code = 2204) 94 U/L AST (test code = 2218) 17 U/L ALT (test code = 2219) 25 U/L Daryn Cronin AustinHEMOGLOBIN [id number] 00:00:00* Test Item Value Reference Range Interpretation Comme nts HEMOGLOBIN A1c (test code = 38552) 9.7 % Daryn Cronin AustinCOMPREHENSIVE METABOLIC [id number] 00:00:00* Test Item Value Reference Range Interpretation Comme nts GLUCOSE (test code = 2217) 249 MG/DL BUN (test code = 2208) 14 MG/DL CREATININE (test code = 2214) 0.58 MG/DL eGFR (2020 CKD-EPI) (test code = 08019) 114 ML/MIN/1.73 CALC BUN/CREAT (test code = 2235) 24 RATIO SODIUM (test code = 2231) 141 MEQ/L POTASSIUM (test code = 2228) 4.0 MEQ/L CHLORIDE (test code = 2215) 101 MEQ/L CARBON DIOXIDE (test code = 2206) 28 MEQ/L CALCIUM (test code = 2209) 9.5 MG/DL PROTEIN, TOTAL (test code = 2229) 7.3 G/DL ALBUMIN (test code = 2201) 4.1 G/DL CALC GLOBULIN (test code = 2240) 3.2 G/DL CALC A/G RATIO (test code = 2234) 1.3 RATIO BILIRUBIN, TOTAL (test code = 2207) 0.3 MG/DL ALKALINE PHOSPHATASE (test code = 2204) 94 U/L AST (test code = 2218) 17 U/L ALT (test code = 2219) 25 U/L Daryn Cronin Marco AntonioHEMOGLOBIN [id number] 00:00:00* Test Item Value Reference Range Interpretation Comme [facility] HEMOGLOBIN A1c (test code = 18333) 9.7 % Daryn Cronin Marco AntonioCOMPREHENSIVE METABOLIC [id number] 00:00:00* Test Item Value Reference Range Interpretation Comme nts GLUCOSE (test code = 2217) 249 MG/DL BUN (test code = 2208) 14 MG/DL CREATININE (test code = 2214) 0.58 MG/DL eGFR (2020 CKD-EPI) (test code = 55957) 114 ML/MIN/1.73 CALC BUN/CREAT (test code = 2235) 24 RATIO SODIUM (test code = 2231) 141 MEQ/L POTASSIUM (test code = 2228) 4.0 MEQ/L CHLORIDE (test code = 2215) 101 MEQ/L CARBON DIOXIDE (test code = 2206) 28 MEQ/L CALCIUM (test code = 2209) 9.5 MG/DL PROTEIN, TOTAL (test code = 2229) 7.3 G/DL ALBUMIN (test code = 2201) 4.1 G/DL CALC GLOBULIN (test code = 2240) 3.2 G/DL CALC A/G RATIO (test code = 2234) 1.3 RATIO BILIRUBIN, TOTAL (test code = 2207) 0.3 MG/DL ALKALINE PHOSPHATASE (test code = 2204) 94 U/L AST (test code = 2218) 17 U/L ALT (test code = 2219) 25 U/L Daryn BernardHEMOGLOBIN [id number] 00:00:00* Test Item Value Reference Range Interpretation Comme nts HEMOGLOBIN A1c (test code = 94827) 9.7 % Daryn Cronin AustinCOMPREHENSIVE METABOLIC [id number] 00:00:00* Test Item Value Reference Range Interpretation Comme nts GLUCOSE (test code = 2217) 249 MG/DL BUN (test code = 2208) 14 MG/DL CREATININE (test code = 2214) 0.58 MG/DL eGFR (2020 CKD-EPI) (test code = 69119) 114 ML/MIN/1.73 CALC BUN/CREAT (test code = 2235) 24 RATIO SODIUM (test code = 2231) 141 MEQ/L POTASSIUM (test code = 2228) 4.0 MEQ/L CHLORIDE (test code = 2215) 101 MEQ/L CARBON DIOXIDE (test code = 2206) 28 MEQ/L CALCIUM (test code = 2209) 9.5 MG/DL PROTEIN, TOTAL (test code = 2229) 7.3 G/DL ALBUMIN (test code = 2201) 4.1 G/DL CALC GLOBULIN (test code = 2240) 3.2 G/DL CALC A/G RATIO (test code = 2234) 1.3 RATIO BILIRUBIN, TOTAL (test code = 2207) 0.3 MG/DL ALKALINE PHOSPHATASE (test code = 2204) 94 U/L AST (test code = 2218) 17 U/L ALT (test code = 2219) 25 U/L Daryn BernardHEMOGLOBIN [id number] 00:00:00* Test Item Value Reference Range Interpretation Comme [facility] HEMOGLOBIN A1c (test code = 50833) 9.7 % Daryn BernardPAP TEST, THINPREP, [id number] 14:45:58* Test Item Value Reference Range Interpretation Comme nts SOURCE: (test code = 8001) Cervical/Endoc ervical SLIDES: (test code = 8011) 1 LMP: (test code = 8021) 07/26/2021 SPECIMEN ADEQUACY: (test code = 89105) (NOTE) Satisfactory for evaluation. Endocervical cells/transformation zone component not identified. INTERPRETATION: (test code = 28742) NILM/NO EPITH. ABNORMALITY;SE E BELOW ---- NEGATIVE FOR INTRAEPITHELIAL LESION OR MALIGNANCY (NILM) - OTHER COMMENTS: (test code = 8081) (NOTE) Shift in gonzales suggestive of bacterial vaginosis. BUILDING MAINTENANCE CUSTODIAN : (test code = 8101) SAMEERA Villalobos (ASCP) LOCATION: (test code = 27332) (NOTE) Specimens proces sed and interpreted at [facility], [address] [place] [address], , CLIA: [id number] CPT: (test code = 8140) (NOTE) 13123 UNLESS OT HERWISE INDICATED, COMPUTER AIDED AND BUILDING MAINTENANCE CUSTODIAN SCREENING PERFORMED. The Pap test is a screening test with an inherent, but low probability of error. Your patient should be reminded to consult you immediately if she experiences any suspicious signs or symptoms, regardless of her Pap test result. An alternate report format containing images or consolidated prior Pap history is available as applicable. HPV HIGH RISK WITH GENOTYPE, [id number] 14:39:41* Test Item Value Reference Range Interpretation Comme nts HPV HIGH RISK INTERP (test code = 05753) NEGATIVE NEGATIVE HPV 16 (test code = 57658) NEGATIVE HPV 18 (test code = 70818) NEGATIVE HPV, HR, OTHER GENOTYPES (test code = 06337) NEGATIVE Testing methodol ogy is real-time PCR utilizing hydrolysis probes with the [employer] 4800 system. The test individually detects genotypes 16 and 18, as well as the other 12 high risk types (31,33,35,39,45,51,52,56 ,58,59,66,68). The expected result is negative. A negative result does not rule out the presence of HPV not included in the genotype set, a low level of infection or specimen sampling error. UNLESS OTHERWISE INDICATED, ALL TESTING PERFORMED [facility] [email or web address], [facility]. [address] [place] [address] DNA SEQUENCING ASSOCIATE: HENRIK MIMS M.D. [place] NUMBER [id number] [facility] [place]. [id number] PAP TEST, THINPREP, [id number] 00:00:00* Test Item Value Reference Range Interpretation Comme nts SOURCE: (test code = 8001) Cervical/Endocervical SLIDES: (test code = 8011) 1 LMP: (test code = 8021) 07/26/2021 SPECIMEN ADEQUACY: (test code = 14744) (NOTE) INTERPRETATION: (test code = 77083) NILM/NO EPITH. ABNORMALITY;SEE BELOW OTHER COMMENTS: (test code = 8081) (NOTE) BUILDING MAINTENANCE CUSTODIAN: (test code = 8101) SAMEERA Villalobos (ASCP) LOCATION: (test code = 43260) (NOTE) CPT: (test code = 8140) (NOTE) Daryn BernardHPV HIGH RISK WITH GENOTYPE, [id number] 00:00:00* Test Item Value Reference Range Interpretation Comme nts HPV HIGH RISK INTERP (test c ode = 89609) NEGATIVE HPV 16 (test code = 45644) NEGATIVE HPV 18 (test code = 57440) NEGATIVE HPV, HR, OTHER GENOTYPES (te st code = 04707) NEGATIVE Daryn BernardPAP TEST, THINPREP, [id number] 00:00:00* Test Item Value Reference Range Interpretation Comme nts SOURCE: (test code = 8001) Cervical/Endocervical SLIDES: (test code = 8011) 1 LMP: (test code = 8021) 07/26/2021 SPECIMEN ADEQUACY: (test code = 46626) (NOTE) INTERPRETATION: (test code = 90536) NILM/NO EPITH. ABNORMALITY;SEE BELOW OTHER COMMENTS: (test code = 8081) (NOTE) BUILDING MAINTENANCE CUSTODIAN: (test code = 8101) SAMEERA Villalobos (ASCP) LOCATION: (test code = 43247) (NOTE) CPT: (test code = 8140) (NOTE) Daryn BernardHPV HIGH RISK WITH GENOTYPE, [id number] 00:00:00* Test Item Value Reference Range Interpretation Comme nts HPV HIGH RISK INTERP (test c ode = 85456) NEGATIVE HPV 16 (test code = 34959) NEGATIVE HPV 18 (test code = 69384) NEGATIVE HPV, HR, OTHER GENOTYPES (te st code = 74175) NEGATIVE Daryn BernardPAP TEST, THINPREP, [id number] 00:00:00* Test Item Value Reference Range Interpretation Comme nts SOURCE: (test code = 8001) Cervical/Endocervical SLIDES: (test code = 8011) 1 LMP: (test code = 8021) 07/26/2021 SPECIMEN ADEQUACY: (test code = 25428) (NOTE) INTERPRETATION: (test code = 36942) NILM/NO EPITH. ABNORMALITY;SEE BELOW OTHER COMMENTS: (test code = 8081) (NOTE) BUILDING MAINTENANCE CUSTODIAN: (test code = 8101) SAMEERA Villalobos (ASCP) LOCATION: (test code = 90883) (NOTE) CPT: (test code = 8140) (NOTE) Daryn BernardHPV HIGH RISK WITH GENOTYPE, [id number] 00:00:00* Test Item Value Reference Range Interpretation Comme nts HPV HIGH RISK INTERP (test c ode = 75480) NEGATIVE HPV 16 (test code = 75239) NEGATIVE HPV 18 (test code = 93211) NEGATIVE HPV, HR, OTHER GENOTYPES (te st code = 82556) NEGATIVE Daryn BernardPAP TEST, THINPREP, [id number] 00:00:00* Test Item Value Reference Range Interpretation Comme nts SOURCE: (test code = 8001) Cervical/Endocervical SLIDES: (test code = 8011) 1 LMP: (test code = 8021) 07/26/2021 SPECIMEN ADEQUACY: (test code = 07742) (NOTE) INTERPRETATION: (test code = 39762) NILM/NO EPITH. ABNORMALITY;SEE BELOW OTHER COMMENTS: (test code = 8081) (NOTE) BUILDING MAINTENANCE CUSTODIAN: (test code = 8101) SAMEERA Villalobos (ASCP) LOCATION: (test code = 50979) (NOTE) CPT: (test code = 8140) (NOTE) Daryn BernardHPV HIGH RISK WITH GENOTYPE, [id number] 00:00:00* Test Item Value Reference Range Interpretation Comme nts HPV HIGH RISK INTERP (test c ode = 95163) NEGATIVE HPV 16 (test code = 52005) NEGATIVE HPV 18 (test code = 72655) NEGATIVE HPV, HR, OTHER GENOTYPES (te st code = 64485) NEGATIVE Daryn BernardPAP TEST, THINPREP, [id number] 00:00:00* Test Item Value Reference Range Interpretation Comme nts SOURCE: (test code = 8001) Cervical/Endocervical SLIDES: (test code = 8011) 1 LMP: (test code = 8021) 07/26/2021 SPECIMEN ADEQUACY: (test code = 22167) (NOTE) INTERPRETATION: (test code = 83196) NILM/NO EPITH. ABNORMALITY;SEE BELOW OTHER COMMENTS: (test code = 8081) (NOTE) BUILDING MAINTENANCE CUSTODIAN: (test code = 8101) SAMEERA Villalobos (ASCP) LOCATION: (test code = 18928) (NOTE) CPT: (test code = 8140) (NOTE) Daryn BernardHPV HIGH RISK WITH GENOTYPE, [id number] 00:00:00* Test Item Value Reference Range Interpretation Comme nts HPV HIGH RISK INTERP (test c ode = 33647) NEGATIVE HPV 16 (test code = 33092) NEGATIVE HPV 18 (test code = 03062) NEGATIVE HPV, HR, OTHER GENOTYPES (te st code = 28781) NEGATIVE Daryn BernardPAP TEST, THINPREP, [id number] 00:00:00* Test Item Value Reference Range Interpretation Comme nts SOURCE: (test code = 8001) Cervical/Endocervical SLIDES: (test code = 8011) 1 LMP: (test code = 8021) 07/26/2021 SPECIMEN ADEQUACY: (test code = 43888) (NOTE) INTERPRETATION: (test code = 38723) NILM/NO EPITH. ABNORMALITY;SEE BELOW OTHER COMMENTS: (test code = 8081) (NOTE) BUILDING MAINTENANCE CUSTODIAN: (test code = 8101) SAMEERA Villalobos (ASCP) LOCATION: (test code = 68591) (NOTE) CPT: (test code = 8140) (NOTE) Daryn BernardHPV HIGH RISK WITH GENOTYPE, [id number] 00:00:00* Test Item Value Reference Range Interpretation Comme nts HPV HIGH RISK INTERP (test c ode = 05024) NEGATIVE HPV 16 (test code = 48529) NEGATIVE HPV 18 (test code = 33873) NEGATIVE HPV, HR, OTHER GENOTYPES (te st code = 37797) NEGATIVE Daryn BernardPAP TEST, THINPREP, [id number] 00:00:00* Test Item Value Reference Range Interpretation Comme nts SOURCE: (test code = 8001) Cervical/Endocervical SLIDES: (test code = 8011) 1 LMP: (test code = 8021) 07/26/2021 SPECIMEN ADEQUACY: (test code = 81117) (NOTE) INTERPRETATION: (test code = 59739) NILM/NO EPITH. ABNORMALITY;SEE BELOW OTHER COMMENTS: (test code = 8081) (NOTE) BUILDING MAINTENANCE CUSTODIAN: (test code = 8101) SAMEERA Villalobos (ASCP) LOCATION: (test code = 28280) (NOTE) CPT: (test code = 8140) (NOTE) Daryn BernardHPV HIGH RISK WITH GENOTYPE, [id number] 00:00:00* Test Item Value Reference Range Interpretation Comme nts HPV HIGH RISK INTERP (test c ode = 85262) NEGATIVE HPV 16 (test code = 30494) NEGATIVE HPV 18 (test code = 04026) NEGATIVE HPV, HR, OTHER GENOTYPES (te st code = 54981) NEGATIVE Daryn Cronin AustinCT/NG, TMA, [id number] 18:05:49* Test Item Value Reference Range Interpretation Comme nts GONORRHEA, TMA (test code = 28609) NEGATIVE NEGATIVE Assay methodolog y is nucleic acid amplification by qa automation developer mediated amplification (TMA) utilizing the Aptima Combo 2 Assay. CHLAMYDIA, TMA (test code = 36924) NEGATIVE NEGATIVE Assay methodolog y is nucleic acid amplification by qa automation developer mediated amplification (TMA) utilizing the Aptima Combo 2 Assay. VAGINAL PATHOGENS DNA [id number] 14:37:44* Test Item Value Reference Range Interpretation Comme nts MEGAN SPECIES (test code = 75205) NEGATIVE NEGATIVE G. VAGINALIS (test code = 57129) POSITIVE NEGATIVE A T. VAGINALIS (test code = 70740) NEGATIVE NEGATIVE UNLESS OTHERWISE INDICATED, ALL TESTING PERFORMED [facility] [email or web address] [address] [place] [address] DNA SEQUENCING ASSOCIATE: HENRIK MIMS M.D. [place] NUMBER [id number] [facility] [place] [id number] HIV 1/2 4TH GEN, RFLX [id number] 05:56:50* Test Item Value Reference Range Interpretation Comme nts HIV 1/2 4TH GEN, RFLX CONF ( test code = 3514) NON-REACTIVE NON-REACTIVE HEPATITIS PANEL, [id number] 05:56:50* Test Item Value Reference Range Interpretation Comme nts HEPATITIS A IgM (test code = 53063) NON-REACTIVE NON-REACTIVE HEPATITIS B CORE IgM (test code = 4644) NON-REACTIVE NON-REACTIVE HEPATITIS B SURF AG (test code = 2739) NON-REACTIVE NON-REACTIVE HEPATITIS C ANTIBODY (test code = 4675) NON-REACTIVE NON-REACTIVE INTERPRETATION HEPATITIS A: (test code = 2552) (NOTE) Hepatitis A serology shows no evidence of acute hepatitis A. INTERPRETATION HEPATITIS B: (test code = 19961) (NOTE) Hepatitis B serology shows no evidence of acute hepatitis B andno indication of exposure to hepatitis B virus in the previous justyn eight months. INTERPRETATION HEPATITIS C: (test code = 04254) (NOTE) Hepatitis C serology shows no evidence of exposure to hepatitisC virus at this time. It can take up to 12 months after exposure tothe hepatitis C virus for antibodies to become detectable in the blood in certain patients. [id number] 05:32:35* Test Item Value Reference Range Interpretation Comme nts RPR RESULT (test code = 3501) NON-REACTIVE NON-REACTIVE RPR TITER (test code = 3500) NOT INDIC. TITER NOT INDIC. HIV AB/AG COMBO RFLX [id number] 00:00:00* Test Item Value Reference Range Interpretation Comme nts HIV 1/2 4TH GEN, RFLX CONF ( test code = 3514) NON-REACTIVE Daryn F AustinGC AND CHLAMYDIA AMPLIFIED, [id number] 00:00:00* Test Item Value Reference Range Interpretation Comme nts GONORRHEA, TMA (test code = 46051) NEGATIVE CHLAMYDIA, TMA (test code = 30559) NEGATIVE Daryn BernardACUTE HEPATITIS [id number] 00:00:00* Test Item Value Reference Range Interpretation Comme nts HEPATITIS A IgM (test code = 05014) NON-REACTIVE HEPATITIS B CORE IgM (test c ode = 4644) NON-REACTIVE HEPATITIS B SURF AG (test co de = 2739) NON-REACTIVE HEPATITIS C ANTIBODY (test c ode = 4675) NON-REACTIVE INTERPRETATION HEPATITIS A: (test code = 2552) (NOTE) INTERPRETATION HEPATITIS B: (test code = 35952) (NOTE) INTERPRETATION HEPATITIS C: (test code = 11632) (NOTE) Daryn [id number] 00:00:00* Test Item Value Reference Range Interpretation Comme nts RPR RESULT (test code = 3501) NON-REACTIVE RPR TITER (test code = 3500) NOT INDIC. TITER Daryn BernardVAGINAL PATHOGENS DNA [id number] 00:00:00* Test Item Value Reference Range Interpretation Comme nts MEGAN SPECIES (test code = 20494) NEGATIVE G. VAGINALIS (test code = 20579) POSITIVE T. VAGINALIS (test code = 69337) NEGATIVE Daryn BernardGC AND CHLAMYDIA AMPLIFIED, [id number] 00:00:00* Test Item Value Reference Range Interpretation Comme nts GONORRHEA, TMA (test code = 39875) NEGATIVE CHLAMYDIA, TMA (test code = 72738) NEGATIVE Daryn BernardHIV AB/AG COMBO RFLX [id number] 00:00:00* Test Item Value Reference Range Interpretation Comme beatriz HIV 1/2 4TH GEN, RFLX CONF ( test code = 3514) NON-REACTIVE Daryn BernardACUTE HEPATITIS [id number] 00:00:00* Test Item Value Reference Range Interpretation Comme nts HEPATITIS A IgM (test code = 66461) NON-REACTIVE HEPATITIS B CORE IgM (test c ode = 4644) NON-REACTIVE HEPATITIS B SURF AG (test co de = 2739) NON-REACTIVE HEPATITIS C ANTIBODY (test c ode = 4675) NON-REACTIVE INTERPRETATION HEPATITIS A: (test code = 2552) (NOTE) INTERPRETATION HEPATITIS B: (test code = 82708) (NOTE) INTERPRETATION HEPATITIS C: (test code = 48922) (NOTE) Daryn [id number] 00:00:00* Test Item Value Reference Range Interpretation Comme nts RPR RESULT (test code = 3501) NON-REACTIVE RPR TITER (test code = 3500) NOT INDIC. TITER Daryn BernardVAGINAL PATHOGENS DNA [id number] 00:00:00* Test Item Value Reference Range Interpretation Comme nts MEGAN SPECIES (test code = ) NEGATIVE G. VAGINALIS (test code = 78582) POSITIVE T. VAGINALIS (test code = 06901) NEGATIVE Daryn BernardGC AND CHLAMYDIA AMPLIFIED, [id number] 00:00:00* Test Item Value Reference Range Interpretation Comme nts GONORRHEA, TMA (test code = 09706) NEGATIVE CHLAMYDIA, TMA (test code = 23189) NEGATIVE Daryn BernardHIV AB/AG COMBO RFLX [id number] 00:00:00* Test Item Value Reference Range Interpretation Comme nts HIV 1/2 4TH GEN, RFLX CONF ( test code = 3514) NON-REACTIVE Daryn BernardACUTE HEPATITIS [id number] 00:00:00* Test Item Value Reference Range Interpretation Comme nts HEPATITIS A IgM (test code = 38950) NON-REACTIVE HEPATITIS B CORE IgM (test c ode = 4644) NON-REACTIVE HEPATITIS B SURF AG (test co de = 2739) NON-REACTIVE HEPATITIS C ANTIBODY (test c ode = 4675) NON-REACTIVE INTERPRETATION HEPATITIS A: (test code = 2552) (NOTE) INTERPRETATION HEPATITIS B: (test code = 04506) (NOTE) INTERPRETATION HEPATITIS C: (test code = 32173) (NOTE) Daryn [id number] 00:00:00* Test Item Value Reference Range Interpretation Comme nts RPR RESULT (test code = 3501) NON-REACTIVE RPR TITER (test code = 3500) NOT INDIC. TITER Daryn BernardVAGINAL PATHOGENS DNA [id number] 00:00:00* Test Item Value Reference Range Interpretation Comme nts MEGAN SPECIES (test code = ) NEGATIVE G. VAGINALIS (test code = 43458) POSITIVE T. VAGINALIS (test code = 08616) NEGATIVE Daryn Cronin AustinGC AND CHLAMYDIA AMPLIFIED, [id number] 00:00:00* Test Item Value Reference Range Interpretation Comme nts GONORRHEA, TMA (test code = 33296) NEGATIVE CHLAMYDIA, TMA (test code = 82202) NEGATIVE Daryn BernardHIV AB/AG COMBO RFLX [id number] 00:00:00* Test Item Value Reference Range Interpretation Comme nts HIV 1/2 4TH GEN, RFLX CONF ( test code = 3514) NON-REACTIVE Daryn BernardACUTE HEPATITIS [id number] 00:00:00* Test Item Value Reference Range Interpretation Comme nts HEPATITIS A IgM (test code = 83561) NON-REACTIVE HEPATITIS B CORE IgM (test c ode = 4644) NON-REACTIVE HEPATITIS B SURF AG (test co de = 2739) NON-REACTIVE HEPATITIS C ANTIBODY (test c ode = 4675) NON-REACTIVE INTERPRETATION HEPATITIS A: (test code = 2552) (NOTE) INTERPRETATION HEPATITIS B: (test code = 38505) (NOTE) INTERPRETATION HEPATITIS C: (test code = 14669) (NOTE) Daryn [id number] 00:00:00* Test Item Value Reference Range Interpretation Comme nts RPR RESULT (test code = 3501) NON-REACTIVE RPR TITER (test code = 3500) NOT INDIC. TITER Daryn BernardVAGINAL PATHOGENS DNA [id number] 00:00:00* Test Item Value Reference Range Interpretation Comme nts MEGAN SPECIES (test code = 88870) NEGATIVE G. VAGINALIS (test code = 13148) POSITIVE T. VAGINALIS (test code = 83279) NEGATIVE Daryn BernardHIV AB/AG COMBO RFLX [id number] 00:00:00* Test Item Value Reference Range Interpretation Comme nts HIV 1/2 4TH GEN, RFLX CONF ( test code = 3514) NON-REACTIVE Daryn Cronin AustinGC AND CHLAMYDIA AMPLIFIED, [id number] 00:00:00* Test Item Value Reference Range Interpretation Comme nts GONORRHEA, TMA (test code = 49462) NEGATIVE CHLAMYDIA, TMA (test code = 16691) NEGATIVE Daryn BernardACUTE HEPATITIS [id number] 00:00:00* Test Item Value Reference Range Interpretation Comme nts HEPATITIS A IgM (test code = 03616) NON-REACTIVE HEPATITIS B CORE IgM (test c ode = 4644) NON-REACTIVE HEPATITIS B SURF AG (test co de = 2739) NON-REACTIVE HEPATITIS C ANTIBODY (test c ode = 4675) NON-REACTIVE INTERPRETATION HEPATITIS A: (test code = 2552) (NOTE) INTERPRETATION HEPATITIS B: (test code = 35382) (NOTE) INTERPRETATION HEPATITIS C: (test code = 12777) (NOTE) Daryn [id number] 00:00:00* Test Item Value Reference Range Interpretation Comme nts RPR RESULT (test code = 3501) NON-REACTIVE RPR TITER (test code = 3500) NOT INDIC. TITER Daryn BernardVAGINAL PATHOGENS DNA [id number] 00:00:00* Test Item Value Reference Range Interpretation Comme nts MEGAN SPECIES (test code = 52742) NEGATIVE G. VAGINALIS (test code = 23830) POSITIVE T. VAGINALIS (test code = 15487) NEGATIVE Daryn BernardHIV AB/AG COMBO RFLX [id number] 00:00:00* Test Item Value Reference Range Interpretation Comme nts HIV 1/2 4TH GEN, RFLX CONF ( test code = 3514) NON-REACTIVE Daryn BernardGC AND CHLAMYDIA AMPLIFIED, [id number] 00:00:00* Test Item Value Reference Range Interpretation Comme nts GONORRHEA, TMA (test code = 76117) NEGATIVE CHLAMYDIA, TMA (test code = 44448) NEGATIVE Daryn BernardACUTE HEPATITIS [id number] 00:00:00* Test Item Value Reference Range Interpretation Comme nts HEPATITIS A IgM (test code = 51182) NON-REACTIVE HEPATITIS B CORE IgM (test c ode = 4644) NON-REACTIVE HEPATITIS B SURF AG (test co de = 2739) NON-REACTIVE HEPATITIS C ANTIBODY (test c ode = 4675) NON-REACTIVE INTERPRETATION HEPATITIS A: (test code = 2552) (NOTE) INTERPRETATION HEPATITIS B: (test code = 19462) (NOTE) INTERPRETATION HEPATITIS C: (test code = 56578) (NOTE) Daryn [id number] 00:00:00* Test Item Value Reference Range Interpretation Comme nts RPR RESULT (test code = 3501) NON-REACTIVE RPR TITER (test code = 3500) NOT INDIC. TITER Daryn BernardVAGINAL PATHOGENS DNA [id number] 00:00:00* Test Item Value Reference Range Interpretation Comme nts MEGAN SPECIES (test code = ) NEGATIVE G. VAGINALIS (test code = 76240) POSITIVE T. VAGINALIS (test code = 77153) NEGATIVE Daryn BernardGC AND CHLAMYDIA AMPLIFIED, [id number] 00:00:00* Test Item Value Reference Range Interpretation Comme nts GONORRHEA, TMA (test code = 83319) NEGATIVE CHLAMYDIA, TMA (test code = 77040) NEGATIVE Daryn BernardHIV AB/AG COMBO RFLX [id number] 00:00:00* Test Item Value Reference Range Interpretation Comme nts HIV 1/2 4TH GEN, RFLX CONF ( test code = 3514) NON-REACTIVE Daryn BernardACUTE HEPATITIS [id number] 00:00:00* Test Item Value Reference Range Interpretation Comme nts HEPATITIS A IgM (test code = 25372) NON-REACTIVE HEPATITIS B CORE IgM (test c ode = 4644) NON-REACTIVE HEPATITIS B SURF AG (test co de = 2739) NON-REACTIVE HEPATITIS C ANTIBODY (test c ode = 4675) NON-REACTIVE INTERPRETATION HEPATITIS A: (test code = 2552) (NOTE) INTERPRETATION HEPATITIS B: (test code = 31391) (NOTE) INTERPRETATION HEPATITIS C: (test code = 57480) (NOTE) Daryn [id number] 00:00:00* Test Item Value Reference Range Interpretation Comme nts RPR RESULT (test code = 3501) NON-REACTIVE RPR TITER (test code = 3500) NOT INDIC. TITER Daryn BernardVAGINAL PATHOGENS DNA [id number] 00:00:00* Test Item Value Reference Range Interpretation Comme nts MEGAN SPECIES (test code = ) NEGATIVE G. VAGINALIS (test code = 71649) POSITIVE T. VAGINALIS (test code = 26782) NEGATIVE Daryn BernardCOMPREHENSIVE METABOLIC [id number] 23:59:41* Test Item Value Reference Range Interpretation Comme nts GLUCOSE (test code = 2217) 170 MG/DL 70-99 H BUN (test code = 2208) 18 MG/DL 6-20 CREATININE (test code = 2214) 0.60 MG/DL 0.60-1.30 EFFECTIVE 2020, [facility] HAS IMPLEMENTED THE NKF-ASN RECOMMENDED KD-EPI EGFR REFIT CALCULATION THAT DOES NOT INCLUDE A COEFFICIENT FORRACE. FOR MORE INFORMATION, SEE ANNOUNCEMENT [email or web address] eGFR (2020 CKD-EPI) (test code = 94705) 113 ML/MIN/1.73 >60 CALC BUN/CREAT (test code = 2235) 30 RATIO 6-28 H SODIUM (test code = 223) 141 MEQ/L 133-146 POTASSIUM (test code = 2228) 4.2 MEQ/L 3.5-5.4 CHLORIDE (test code = 2215) 103 MEQ/L 95-107 CARBON DIOXIDE (test code = 2206) 24 MEQ/L 19-31 CALCIUM (test code = 2209) 9.3 MG/DL 8.5-10.5 PROTEIN, TOTAL (test code = 222) 7.4 G/DL 6.1-8.3 ALBUMIN (test code = 220) 4.1 G/DL 3.5-5.2 CALC GLOBULIN (test code = 2240) 3.3 G/DL 1.9-3.7 CALC A/G RATIO (test code = 2234) 1.2 RATIO 1.0-2.6 BILIRUBIN, TOTAL (test code = 2207) 0.4 MG/DL See_Comment [Automated me ssage] The system which generated this result transmitted reference range: <=1.2. The reference range was not used to interpret this result as normal/abnormal. ALKALINE PHOSPHATASE (test code = 2204) 82 U/L 40-115 AST (test code = 2218) 18 U/L 9-40 ALT (test code = 2219) 23 U/L 5-40 UNLESS OTHERWISE INDICATED, ALL TESTING PERFORMED [facility] [address] [place] [id number] DNA SEQUENCING ASSOCIATE: HENRIK MIMS M.D. CLIA NUMBER [id number] [facility] [place]. [id number] LIPID [id number] 23:59:41* Test Item Value Reference Range Interpretation Comme nts CHOLESTEROL (test code = 2210) 192 MG/DL <200 TRIGLYCERIDES (test code = 2232) 115 MG/DL <150 HDL CHOLESTEROL (test code = 2220) 47 MG/DL >39 CALC LDL CHOL (test code = 2237) 122 MG/DL <100 H NOTE: CALCULATED LDL IS BASED ON RONI-CROW METHOD WHICHINCLUDES ADJUSTABLE TRIGLYCERIDE:VLDL CHOLESTEROL RATIO.THIS FACTOR VARIES BY MEASURED TRIGLYCERIDE AND NON-HDLCHOLESTEROL CONCENTRATIONS WITH INCREASED CALCULATED LDL SEENIN HIGHER TRIGLYCERIDE OR LOWER NON-HDL SPECIMENS. FOR MOREINFORMATION, SEE CLIENT ANNOUNCEMENT AT [email or web address] RISK RATIO LDL/HDL (test code = 2238) 2.60 RATIO <3.22 HEMOGLOBIN [id number] 03:23:02* Test Item Value Reference Range Interpretation Comme nts HEMOGLOBIN A1c (test code = 89958) 7.6 % 4.2-5.6 H [employer] GUIDELINES FOR HGB A1C: PREDIABETES/INCREASED RISK . . . . . . . 5.7-6.4% DIAGNOSIS OF DIABETES . . . . . . . . . >=6.5% WITH CONFIRMATION OR APPROPRIATE SYMPTOMS NOTE: ASSAY MAY BE AFFECTED BY HEMOGLOBINOPATHIES (SICKLE CELL ANEMIA, S-C DISEASE, OTHERS) OR ARTIFICIALLY LOWERED BY DECREASED RED CELL SURVIVAL (HEMOLYTIC ANEMIAS, BLOOD LOSS, ETC.). CONSIDER ALTERNATE TESTING OR LABORATORY CONSULTATION. HEMOGLOBIN [id number] 00:00:00* Test Item Value Reference Range Interpretation Comme nts HEMOGLOBIN A1c (test code = 77819) 7.6 % Darny Cronin AustinLIPID [id number] 00:00:00* Test Item Value Reference Range Interpretation Comme nts CHOLESTEROL (test code = 2210) 192 MG/DL TRIGLYCERIDES (test code = 2232) 115 MG/DL HDL CHOLESTEROL (test code = 2220) 47 MG/DL CALC LDL CHOL (test code = 2237) 122 MG/DL RISK RATIO LDL/HDL (test cod e = 2238) 2.60 RATIO Daryn Mehrdad Marco AntonioCOMPREHENSIVE METABOLIC [id number] 00:00:00* Test Item Value Reference Range Interpretation Comme nts GLUCOSE (test code = 2217) 170 MG/DL BUN (test code = 2208) 18 MG/DL CREATININE (test code = 2214) 0.60 MG/DL eGFR (2020 CKD-EPI) (test code = 95058) 113 ML/MIN/1.73 CALC BUN/CREAT (test code = 2235) 30 RATIO SODIUM (test code = 2231) 141 MEQ/L POTASSIUM (test code = 2228) 4.2 MEQ/L CHLORIDE (test code = 2215) 103 MEQ/L CARBON DIOXIDE (test code = 2206) 24 MEQ/L CALCIUM (test code = 2209) 9.3 MG/DL PROTEIN, TOTAL (test code = 2229) 7.4 G/DL ALBUMIN (test code = 2201) 4.1 G/DL CALC GLOBULIN (test code = 2240) 3.3 G/DL CALC A/G RATIO (test code = 2234) 1.2 RATIO BILIRUBIN, TOTAL (test code = 2207) 0.4 MG/DL ALKALINE PHOSPHATASE (test code = 2204) 82 U/L AST (test code = 2218) 18 U/L ALT (test code = 2219) 23 U/L Daryn BernardHEMOGLOBIN [id number] 00:00:00* Test Item Value Reference Range Interpretation Comme nts HEMOGLOBIN A1c (test code = 13587) 7.6 % Daryn BernardLIPID [id number] 00:00:00* Test Item Value Reference Range Interpretation Comme nts CHOLESTEROL (test code = 2210) 192 MG/DL TRIGLYCERIDES (test code = 2232) 115 MG/DL HDL CHOLESTEROL (test code = 2220) 47 MG/DL CALC LDL CHOL (test code = 2237) 122 MG/DL RISK RATIO LDL/HDL (test cod e = 2238) 2.60 RATIO Daryn BernardCOMPREHENSIVE METABOLIC [id number] 00:00:00* Test Item Value Reference Range Interpretation Comme nts GLUCOSE (test code = 2217) 170 MG/DL BUN (test code = 2208) 18 MG/DL CREATININE (test code = 2214) 0.60 MG/DL eGFR (2020 CKD-EPI) (test code = 46138) 113 ML/MIN/1.73 CALC BUN/CREAT (test code = 2235) 30 RATIO SODIUM (test code = 2231) 141 MEQ/L POTASSIUM (test code = 2228) 4.2 MEQ/L CHLORIDE (test code = 2215) 103 MEQ/L CARBON DIOXIDE (test code = 2206) 24 MEQ/L CALCIUM (test code = 2209) 9.3 MG/DL PROTEIN, TOTAL (test code = 2229) 7.4 G/DL ALBUMIN (test code = 2201) 4.1 G/DL CALC GLOBULIN (test code = 2240) 3.3 G/DL CALC A/G RATIO (test code = 2234) 1.2 RATIO BILIRUBIN, TOTAL (test code = 2207) 0.4 MG/DL ALKALINE PHOSPHATASE (test code = 2204) 82 U/L AST (test code = 2218) 18 U/L ALT (test code = 2219) 23 U/L Daryn BernardHEMOGLOBIN [id number] 00:00:00* Test Item Value Reference Range Interpretation Comme beatriz HEMOGLOBIN A1c (test code = 41380) 7.6 % Daryn BernardLIPID [id number] 00:00:00* Test Item Value Reference Range Interpretation Comme nts CHOLESTEROL (test code = 2210) 192 MG/DL TRIGLYCERIDES (test code = 2232) 115 MG/DL HDL CHOLESTEROL (test code = 2220) 47 MG/DL CALC LDL CHOL (test code = 2237) 122 MG/DL RISK RATIO LDL/HDL (test cod e = 2238) 2.60 RATIO Daryn BernardCOMPREHENSIVE METABOLIC [id number] 00:00:00* Test Item Value Reference Range Interpretation Comme nts GLUCOSE (test code = 2217) 170 MG/DL BUN (test code = 2208) 18 MG/DL CREATININE (test code = 2214) 0.60 MG/DL eGFR (2020 CKD-EPI) (test code = 86903) 113 ML/MIN/1.73 CALC BUN/CREAT (test code = 2235) 30 RATIO SODIUM (test code = 2231) 141 MEQ/L POTASSIUM (test code = 2228) 4.2 MEQ/L CHLORIDE (test code = 2215) 103 MEQ/L CARBON DIOXIDE (test code = 2206) 24 MEQ/L CALCIUM (test code = 2209) 9.3 MG/DL PROTEIN, TOTAL (test code = 2229) 7.4 G/DL ALBUMIN (test code = 2201) 4.1 G/DL CALC GLOBULIN (test code = 2240) 3.3 G/DL CALC A/G RATIO (test code = 2234) 1.2 RATIO BILIRUBIN, TOTAL (test code = 2207) 0.4 MG/DL ALKALINE PHOSPHATASE (test code = 2204) 82 U/L AST (test code = 2218) 18 U/L ALT (test code = 2219) 23 U/L Daryn BernardHEMOGLOBIN [id number] 00:00:00* Test Item Value Reference Range Interpretation Comme beatriz HEMOGLOBIN A1c (test code = 68394) 7.6 % Daryn Cronin AustinLIPID [id number] 00:00:00* Test Item Value Reference Range Interpretation Comme nts CHOLESTEROL (test code = 2210) 192 MG/DL TRIGLYCERIDES (test code = 2232) 115 MG/DL HDL CHOLESTEROL (test code = 2220) 47 MG/DL CALC LDL CHOL (test code = 2237) 122 MG/DL RISK RATIO LDL/HDL (test cod e = 2238) 2.60 RATIO Daryn BernardCOMPREHENSIVE METABOLIC [id number] 00:00:00* Test Item Value Reference Range Interpretation Comme nts GLUCOSE (test code = 2217) 170 MG/DL BUN (test code = 2208) 18 MG/DL CREATININE (test code = 2214) 0.60 MG/DL eGFR (2020 CKD-EPI) (test code = 33624) 113 ML/MIN/1.73 CALC BUN/CREAT (test code = 2235) 30 RATIO SODIUM (test code = 2231) 141 MEQ/L POTASSIUM (test code = 2228) 4.2 MEQ/L CHLORIDE (test code = 2215) 103 MEQ/L CARBON DIOXIDE (test code = 2206) 24 MEQ/L CALCIUM (test code = 2209) 9.3 MG/DL PROTEIN, TOTAL (test code = 2229) 7.4 G/DL ALBUMIN (test code = 2201) 4.1 G/DL CALC GLOBULIN (test code = 2240) 3.3 G/DL CALC A/G RATIO (test code = 2234) 1.2 RATIO BILIRUBIN, TOTAL (test code = 2207) 0.4 MG/DL ALKALINE PHOSPHATASE (test code = 2204) 82 U/L AST (test code = 2218) 18 U/L ALT (test code = 2219) 23 U/L Daryn BernardHEMOGLOBIN [id number] 00:00:00* Test Item Value Reference Range Interpretation Comme nts HEMOGLOBIN A1c (test code = 01661) 7.6 % Daryn BernardLIPID [id number] 00:00:00* Test Item Value Reference Range Interpretation Comme nts CHOLESTEROL (test code = 2210) 192 MG/DL TRIGLYCERIDES (test code = 2232) 115 MG/DL HDL CHOLESTEROL (test code = 2220) 47 MG/DL CALC LDL CHOL (test code = 2237) 122 MG/DL RISK RATIO LDL/HDL (test cod e = 2238) 2.60 RATIO Daryn BernardCOMPREHENSIVE METABOLIC [id number] 00:00:00* Test Item Value Reference Range Interpretation Comme nts GLUCOSE (test code = 2217) 170 MG/DL BUN (test code = 2208) 18 MG/DL CREATININE (test code = 2214) 0.60 MG/DL eGFR (2020 CKD-EPI) (test code = 40667) 113 ML/MIN/1.73 CALC BUN/CREAT (test code = 2235) 30 RATIO SODIUM (test code = 2231) 141 MEQ/L POTASSIUM (test code = 2228) 4.2 MEQ/L CHLORIDE (test code = 2215) 103 MEQ/L CARBON DIOXIDE (test code = 2206) 24 MEQ/L CALCIUM (test code = 2209) 9.3 MG/DL PROTEIN, TOTAL (test code = 2229) 7.4 G/DL ALBUMIN (test code = 2201) 4.1 G/DL CALC GLOBULIN (test code = 2240) 3.3 G/DL CALC A/G RATIO (test code = 2234) 1.2 RATIO BILIRUBIN, TOTAL (test code = 2207) 0.4 MG/DL ALKALINE PHOSPHATASE (test code = 2204) 82 U/L AST (test code = 2218) 18 U/L ALT (test code = 2219) 23 U/L Daryn BernardHEMOGLOBIN [id number] 00:00:00* Test Item Value Reference Range Interpretation Comme nts HEMOGLOBIN A1c (test code = 54240) 7.6 % Daryn BernardLIPID [id number] 00:00:00* Test Item Value Reference Range Interpretation Comme nts CHOLESTEROL (test code = 2210) 192 MG/DL TRIGLYCERIDES (test code = 2232) 115 MG/DL HDL CHOLESTEROL (test code = 2220) 47 MG/DL CALC LDL CHOL (test code = 2237) 122 MG/DL RISK RATIO LDL/HDL (test cod e = 2238) 2.60 RATIO Daryn BernardCOMPREHENSIVE METABOLIC [id number] 00:00:00* Test Item Value Reference Range Interpretation Comme nts GLUCOSE (test code = 2217) 170 MG/DL BUN (test code = 2208) 18 MG/DL CREATININE (test code = 2214) 0.60 MG/DL eGFR (2020 CKD-EPI) (test code = 55442) 113 ML/MIN/1.73 CALC BUN/CREAT (test code = 2235) 30 RATIO SODIUM (test code = 2231) 141 MEQ/L POTASSIUM (test code = 2228) 4.2 MEQ/L CHLORIDE (test code = 2215) 103 MEQ/L CARBON DIOXIDE (test code = 2206) 24 MEQ/L CALCIUM (test code = 2209) 9.3 MG/DL PROTEIN, TOTAL (test code = 2229) 7.4 G/DL ALBUMIN (test code = 2201) 4.1 G/DL CALC GLOBULIN (test code = 2240) 3.3 G/DL CALC A/G RATIO (test code = 2234) 1.2 RATIO BILIRUBIN, TOTAL (test code = 2207) 0.4 MG/DL ALKALINE PHOSPHATASE (test code = 2204) 82 U/L AST (test code = 2218) 18 U/L ALT (test code = 2219) 23 U/L Daryn BernardHEMOGLOBIN [id number] 00:00:00* Test Item Value Reference Range Interpretation Comme nts HEMOGLOBIN A1c (test code = 85454) 7.6 % Daryn Cronin AustinLIPID [id number] 00:00:00* Test Item Value Reference Range Interpretation Comme nts CHOLESTEROL (test code = 2210) 192 MG/DL TRIGLYCERIDES (test code = 2232) 115 MG/DL HDL CHOLESTEROL (test code = 2220) 47 MG/DL CALC LDL CHOL (test code = 2237) 122 MG/DL RISK RATIO LDL/HDL (test cod e = 2238) 2.60 RATIO Daryn BernardCOMPREHENSIVE METABOLIC [id number] 00:00:00* Test Item Value Reference Range Interpretation Comme nts GLUCOSE (test code = 2217) 170 MG/DL BUN (test code = 2208) 18 MG/DL CREATININE (test code = 2214) 0.60 MG/DL eGFR (2020 CKD-EPI) (test code = 09871) 113 ML/MIN/1.73 CALC BUN/CREAT (test code = 2235) 30 RATIO SODIUM (test code = 2231) 141 MEQ/L POTASSIUM (test code = 2228) 4.2 MEQ/L CHLORIDE (test code = 2215) 103 MEQ/L CARBON DIOXIDE (test code = 2206) 24 MEQ/L CALCIUM (test code = 2209) 9.3 MG/DL PROTEIN, TOTAL (test code = 2229) 7.4 G/DL ALBUMIN (test code = 220) 4.1 G/DL CALC GLOBULIN (test code = 2240) 3.3 G/DL CALC A/G RATIO (test code = 2234) 1.2 RATIO BILIRUBIN, TOTAL (test code = 2206) 0.4 MG/DL ALKALINE PHOSPHATASE (test code = 2203) 82 U/L AST (test code = 2218) 18 U/L ALT (test code = 2219) 23 U/L Daryn BernardHEMOGLOBIN [id number] 00:00:00* Test Item Value Reference Range Interpretation Comme nts HEMOGLOBIN A1c (test code = 85030) 10.3 % Daryn BernardLIPID [id number] 00:00:00* Test Item Value Reference Range Interpretation Comme nts CHOLESTEROL (test code = 2210) 187 MG/DL TRIGLYCERIDES (test code = 2232) 164 MG/DL HDL CHOLESTEROL (test code = 2220) 43 MG/DL CALC LDL CHOL (test code = 2237) 116 MG/DL RISK RATIO LDL/HDL (test cod e = 2238) 2.70 RATIO Daryn BernardCOMPREHENSIVE METABOLIC [id number] 00:00:00* Test Item Value Reference Range Interpretation Comme nts GLUCOSE (test code = 2217) 285 MG/DL BUN (test code = 2208) 14 MG/DL CREATININE (test code = 2214) 0.56 MG/DL eGFR AMER. (test cod e = 86080) 131 ML/MIN/1.73 eGFR NON- AMER. (test code = 36398) 113 ML/MIN/1.73 CALC BUN/CREAT (test code = 2235) 25 RATIO SODIUM (test code = 2231) 139 MEQ/L POTASSIUM (test code = 2228) 4.1 MEQ/L CHLORIDE (test code = 2215) 102 MEQ/L CARBON DIOXIDE (test code = 2206) 23 MEQ/L CALCIUM (test code = 2209) 9.2 MG/DL PROTEIN, TOTAL (test code = 2229) 7.0 G/DL ALBUMIN (test code = 2201) 3.9 G/DL CALC GLOBULIN (test code = 2240) 3.1 G/DL CALC A/G RATIO (test code = 2234) 1.3 RATIO BILIRUBIN, TOTAL (test code = 2207) 0.4 MG/DL ALKALINE PHOSPHATASE (test code = 2204) 107 U/L AST (test code = 2218) 14 U/L ALT (test code = 2219) 21 U/L Daryn BernardHEMOGLOBIN [id number] 00:00:00* Test Item Value Reference Range Interpretation Comme nts HEMOGLOBIN A1c (test code = 39792) 10.3 % Daryn BernardLIPID [id number] 00:00:00* Test Item Value Reference Range Interpretation Comme nts CHOLESTEROL (test code = 2210) 187 MG/DL TRIGLYCERIDES (test code = 2232) 164 MG/DL HDL CHOLESTEROL (test code = 2220) 43 MG/DL CALC LDL CHOL (test code = 2237) 116 MG/DL RISK RATIO LDL/HDL (test cod e = 2238) 2.70 RATIO Daryn BernardCOMPREHENSIVE METABOLIC [id number] 00:00:00* Test Item Value Reference Range Interpretation Comme nts GLUCOSE (test code = 2217) 285 MG/DL BUN (test code = 2208) 14 MG/DL CREATININE (test code = 2214) 0.56 MG/DL eGFR AMER. (test cod e = 33952) 131 ML/MIN/1.73 eGFR NON- AMER. (test code = 31938) 113 ML/MIN/1.73 CALC BUN/CREAT (test code = 2235) 25 RATIO SODIUM (test code = 2231) 139 MEQ/L POTASSIUM (test code = 2228) 4.1 MEQ/L CHLORIDE (test code = 2215) 102 MEQ/L CARBON DIOXIDE (test code = 2206) 23 MEQ/L CALCIUM (test code = 2209) 9.2 MG/DL PROTEIN, TOTAL (test code = 2229) 7.0 G/DL ALBUMIN (test code = 2201) 3.9 G/DL CALC GLOBULIN (test code = 2240) 3.1 G/DL CALC A/G RATIO (test code = 2234) 1.3 RATIO BILIRUBIN, TOTAL (test code = 2207) 0.4 MG/DL ALKALINE PHOSPHATASE (test code = 2204) 107 U/L AST (test code = 2218) 14 U/L ALT (test code = 2219) 21 U/L Daryn BernardHEMOGLOBIN [id number] 00:00:00* Test Item Value Reference Range Interpretation Comme beatriz HEMOGLOBIN A1c (test code = 50901) 10.3 % Daryn BernardLIPID [id number] 00:00:00* Test Item Value Reference Range Interpretation Comme nts CHOLESTEROL (test code = 2210) 187 MG/DL TRIGLYCERIDES (test code = 2232) 164 MG/DL HDL CHOLESTEROL (test code = 2220) 43 MG/DL CALC LDL CHOL (test code = 2237) 116 MG/DL RISK RATIO LDL/HDL (test cod e = 2238) 2.70 RATIO Daryn BernardCOMPREHENSIVE METABOLIC [id number] 00:00:00* Test Item Value Reference Range Interpretation Comme nts GLUCOSE (test code = 2217) 285 MG/DL BUN (test code = 2208) 14 MG/DL CREATININE (test code = 2214) 0.56 MG/DL eGFR AMER. (test cod e = 31844) 131 ML/MIN/1.73 eGFR NON- AMER. (test code = 70938) 113 ML/MIN/1.73 CALC BUN/CREAT (test code = 2235) 25 RATIO SODIUM (test code = 2231) 139 MEQ/L POTASSIUM (test code = 2228) 4.1 MEQ/L CHLORIDE (test code = 2215) 102 MEQ/L CARBON DIOXIDE (test code = 2206) 23 MEQ/L CALCIUM (test code = 2209) 9.2 MG/DL PROTEIN, TOTAL (test code = 2229) 7.0 G/DL ALBUMIN (test code = 2201) 3.9 G/DL CALC GLOBULIN (test code = 2240) 3.1 G/DL CALC A/G RATIO (test code = 2234) 1.3 RATIO BILIRUBIN, TOTAL (test code = 2207) 0.4 MG/DL ALKALINE PHOSPHATASE (test code = 2204) 107 U/L AST (test code = 2218) 14 U/L ALT (test code = 2219) 21 U/L Daryn BernardHEMOGLOBIN [id number] 00:00:00* Test Item Value Reference Range Interpretation Comme nts HEMOGLOBIN A1c (test code = 66247) 10.3 % Daryn BernardLIPID [id number] 00:00:00* Test Item Value Reference Range Interpretation Comme nts CHOLESTEROL (test code = 2210) 187 MG/DL TRIGLYCERIDES (test code = 2232) 164 MG/DL HDL CHOLESTEROL (test code = 2220) 43 MG/DL CALC LDL CHOL (test code = 2237) 116 MG/DL RISK RATIO LDL/HDL (test cod e = 2238) 2.70 RATIO Daryn BernardCOMPREHENSIVE METABOLIC [id number] 00:00:00* Test Item Value Reference Range Interpretation Comme nts GLUCOSE (test code = 2217) 285 MG/DL BUN (test code = 2208) 14 MG/DL CREATININE (test code = 2214) 0.56 MG/DL eGFR AMER. (test cod e = 04654) 131 ML/MIN/1.73 eGFR NON- AMER. (test code = 84274) 113 ML/MIN/1.73 CALC BUN/CREAT (test code = 2235) 25 RATIO SODIUM (test code = 2231) 139 MEQ/L POTASSIUM (test code = 2228) 4.1 MEQ/L CHLORIDE (test code = 2215) 102 MEQ/L CARBON DIOXIDE (test code = 2206) 23 MEQ/L CALCIUM (test code = 2209) 9.2 MG/DL PROTEIN, TOTAL (test code = 2229) 7.0 G/DL ALBUMIN (test code = 2201) 3.9 G/DL CALC GLOBULIN (test code = 2240) 3.1 G/DL CALC A/G RATIO (test code = 2234) 1.3 RATIO BILIRUBIN, TOTAL (test code = 2207) 0.4 MG/DL ALKALINE PHOSPHATASE (test code = 2204) 107 U/L AST (test code = 2218) 14 U/L ALT (test code = 2219) 21 U/L Daryn BernardHEMOGLOBIN [id number] 00:00:00* Test Item Value Reference Range Interpretation Comme nts HEMOGLOBIN A1c (test code = 94910) 10.3 % Daryn Cronin AustinLIPID [id number] 00:00:00* Test Item Value Reference Range Interpretation Comme nts CHOLESTEROL (test code = 2210) 187 MG/DL TRIGLYCERIDES (test code = 2232) 164 MG/DL HDL CHOLESTEROL (test code = 2220) 43 MG/DL CALC LDL CHOL (test code = 2237) 116 MG/DL RISK RATIO LDL/HDL (test cod e = 2238) 2.70 RATIO Daryn BernardCOMPREHENSIVE METABOLIC [id number] 00:00:00* Test Item Value Reference Range Interpretation Comme nts GLUCOSE (test code = 2217) 285 MG/DL BUN (test code = 2208) 14 MG/DL CREATININE (test code = 2214) 0.56 MG/DL eGFR AMER. (test cod e = 09975) 131 ML/MIN/1.73 eGFR NON- AMER. (test code = 43265) 113 ML/MIN/1.73 CALC BUN/CREAT (test code = 2235) 25 RATIO SODIUM (test code = 2231) 139 MEQ/L POTASSIUM (test code = 2228) 4.1 MEQ/L CHLORIDE (test code = 2215) 102 MEQ/L CARBON DIOXIDE (test code = 2206) 23 MEQ/L CALCIUM (test code = 2209) 9.2 MG/DL PROTEIN, TOTAL (test code = 2229) 7.0 G/DL ALBUMIN (test code = 2201) 3.9 G/DL CALC GLOBULIN (test code = 2240) 3.1 G/DL CALC A/G RATIO (test code = 2234) 1.3 RATIO BILIRUBIN, TOTAL (test code = 2207) 0.4 MG/DL ALKALINE PHOSPHATASE (test code = 2204) 107 U/L AST (test code = 2218) 14 U/L ALT (test code = 2219) 21 U/L Daryn BernardHEMOGLOBIN [id number] 00:00:00* Test Item Value Reference Range Interpretation Comme nts HEMOGLOBIN A1c (test code = 02603) 10.3 % Daryn Cronin AustinLIPID [id number] 00:00:00* Test Item Value Reference Range Interpretation Comme nts CHOLESTEROL (test code = 2210) 187 MG/DL TRIGLYCERIDES (test code = 2232) 164 MG/DL HDL CHOLESTEROL (test code = 2220) 43 MG/DL CALC LDL CHOL (test code = 2237) 116 MG/DL RISK RATIO LDL/HDL (test cod e = 2238) 2.70 RATIO Daryn BernardCOMPREHENSIVE METABOLIC [id number] 00:00:00* Test Item Value Reference Range Interpretation Comme nts GLUCOSE (test code = 2217) 285 MG/DL BUN (test code = 2208) 14 MG/DL CREATININE (test code = 2214) 0.56 MG/DL eGFR AMER. (test cod e = 26039) 131 ML/MIN/1.73 eGFR NON- AMER. (test code = 47227) 113 ML/MIN/1.73 CALC BUN/CREAT (test code = 2235) 25 RATIO SODIUM (test code = 2231) 139 MEQ/L POTASSIUM (test code = 2228) 4.1 MEQ/L CHLORIDE (test code = 2215) 102 MEQ/L CARBON DIOXIDE (test code = 2206) 23 MEQ/L CALCIUM (test code = 2209) 9.2 MG/DL PROTEIN, TOTAL (test code = 2229) 7.0 G/DL ALBUMIN (test code = 2201) 3.9 G/DL CALC GLOBULIN (test code = 2240) 3.1 G/DL CALC A/G RATIO (test code = 2234) 1.3 RATIO BILIRUBIN, TOTAL (test code = 2207) 0.4 MG/DL ALKALINE PHOSPHATASE (test code = 2204) 107 U/L AST (test code = 2218) 14 U/L ALT (test code = 2219) 21 U/L Daryn BernardHEMOGLOBIN [id number] 00:00:00* Test Item Value Reference Range Interpretation Comme nts HEMOGLOBIN A1c (test code = 78980) 10.3 % Daryn BernardLIPID [id number] 00:00:00* Test Item Value Reference Range Interpretation Comme nts CHOLESTEROL (test code = 2210) 187 MG/DL TRIGLYCERIDES (test code = 2232) 164 MG/DL HDL CHOLESTEROL (test code = 2220) 43 MG/DL CALC LDL CHOL (test code = 2237) 116 MG/DL RISK RATIO LDL/HDL (test cod e = 2238) 2.70 RATIO Daryn BernardCOMPREHENSIVE METABOLIC [id number] 00:00:00* Test Item Value Reference Range Interpretation Comme nts GLUCOSE (test code = 2217) 285 MG/DL BUN (test code = 2208) 14 MG/DL CREATININE (test code = 2214) 0.56 MG/DL eGFR AMER. (test cod e = 61059) 131 ML/MIN/1.73 eGFR NON- AMER. (test code = 20639) 113 ML/MIN/1.73 CALC BUN/CREAT (test code = 2235) 25 RATIO SODIUM (test code = 2231) 139 MEQ/L POTASSIUM (test code = 2228) 4.1 MEQ/L CHLORIDE (test code = 2215) 102 MEQ/L CARBON DIOXIDE (test code = 2206) 23 MEQ/L CALCIUM (test code = 2209) 9.2 MG/DL PROTEIN, TOTAL (test code = 2229) 7.0 G/DL ALBUMIN (test code = 2201) 3.9 G/DL CALC GLOBULIN (test code = 2240) 3.1 G/DL CALC A/G RATIO (test code = 2234) 1.3 RATIO BILIRUBIN, TOTAL (test code = 2207) 0.4 MG/DL ALKALINE PHOSPHATASE (test code = 2204) 107 U/L AST (test code = 2218) 14 U/L ALT (test code = 2219) 21 U/L Daryn Cronin [id number] (COVID-19) by RT-PCR (HIGH RISK)2020-05-20 00:00:00* Test Item Value Reference Range Interpretation Comme nts SARS-CoV-2 INTERPRETATION (test code = 20038) NEGATIVE SOURCE (test code = 31943) NASOPHARYNGEAL Daryn Cronin [id number] (COVID-19) by RT-PCR (HIGH RISK)2020-05-20 00:00:00* Test Item Value Reference Range Interpretation Comme nts SARS-CoV-2 INTERPRETATION (test code = 21006) NEGATIVE SOURCE (test code = 38500) NASOPHARYNGEAL Daryn Cronin [id number] (COVID-19) by RT-PCR (HIGH RISK)2020-05-20 00:00:00* Test Item Value Reference Range Interpretation Comme nts SARS-CoV-2 INTERPRETATION (test code = 80624) NEGATIVE SOURCE (test code = 80582) NASOPHARYNGEAL Daryn F [id number] (COVID-19) by RT-PCR (HIGH RISK)2020-05-20 00:00:00* Test Item Value Reference Range Interpretation Comme nts SARS-CoV-2 INTERPRETATION (test code = 49422) NEGATIVE SOURCE (test code = 30335) NASOPHARYNGEAL Daryn F [id number] (COVID-19) by RT-PCR (HIGH RISK)2020-05-20 00:00:00* Test Item Value Reference Range Interpretation Comme nts SARS-CoV-2 INTERPRETATION (test code = 69905) NEGATIVE SOURCE (test code = 40218) NASOPHARYNGEAL Daryn F [id number] (COVID-19) by RT-PCR (HIGH RISK)2020-05-20 00:00:00* Test Item Value Reference Range Interpretation Comme nts SARS-CoV-2 INTERPRETATION (test code = 67745) NEGATIVE SOURCE (test code = 50748) NASOPHARYNGEAL Daryn F [id number] (COVID-19) by RT-PCR (HIGH RISK)2020-05-20 00:00:00* Test Item Value Reference Range Interpretation Comme nts SARS-CoV-2 INTERPRETATION (test code = 02532) NEGATIVE SOURCE (test code = 95183) NASOPHARYNGEAL Daryn F Marco Antonio
[2024-05-17] MEDS ORDERED: ONDANSETRON 4 MG/2 ML VIAL ONE (11:25)
[2024-05-17] MEDS ORDERED: MORPHINE 4 MG/ML SYR ONE (11:26)
[2024-05-17 11:52] LABS: Absolute Basophils 0.1 K/uL (0-0.5); Absolute Eosinophils 0.1 K/uL (0-0.5); Absolute Lymphocytes (CBC) 1.8 K/uL (0.7-4.9); Absolute Monocytes 0.4 K/uL (0.1-1.3); Absolute Neutrophil 10.9 K/uL (1.8-8.0); Basophils % 0.5 % (0-1.3); Eosinophils % 0.6 % (0-4.4); Hematocrit 35.9 % (36.0-45.0); Hemoglobin 11.8 g/dL (12.0-15.0); Lymphocytes % 13.6 % (15.3-44.8); MCH 28.5 pg (27.0-35.0); MCV 86.3 fL (80-100); MPV 9.8 fL (7.6-11.3); Monocytes % 2.8 % (3.3-12.3); Neutrophils % 82.5 % (41.7-73.7); Platelets 314 thou/uL (152-406); RBC Red Blood Cell Count 4.16 M/uL (3.86-4.86); Red Cell Distribution Width 13.7 % (12.1-15.2)
[2024-05-17 12:07] LABS: Albumin 3.3 g/dL (3.4-5.0); Albumin/Globulin Ratio 0.7 (1.1-1.8); Anion Gap 6.4 mEq/L (5.0-15.0); Bilirubin Total 0.4 mg/dL (0.2-1.0); Globulin 4.6 g/dL (2.3-3.5); Potassium 3.4 mEq/L (3.5-5.1); Protein, Total 7.9 g/dL (6.4-8.2)
--- NOTE | 2024-05-17 12:37 | RAD REPORT ---
EXAMINATION: CT ABDOMEN AND PELVIS WITH CONTRAST CLINICAL INDICATION: ABD PAIN TECHNIQUE: CT abdomen and pelvis was performed, after the administration of IV contrast, as per [facility]. Axial, sagittal and coronal reconstructions were obtained. One or more of the following dose reduction techniques were used: Automated exposure control, adjustment of the mA and k V according to patient size, and iterative reconstruction. Unless otherwise specified, incidental findings do not require dedicated imaging follow-up. COMPARISON: 07/28/2018 FINDINGS: LOWER CHEST: The visualized lung bases are clear. LIVER: Mild fatty liver is present. No focal lesion or biliary dilatation is seen. Cholecystectomy clips. SPLEEN: Normal size. No focal lesion. PANCREAS: No mass, ductal dilation, or ina-pancreatic fluid. ADRENALS: Normal; no mass. KIDNEYS: 14 mm lesion is seen inferior pole left kidney which is increased in size since comparison s tudy demonstrates possible subtle rim enhancement. Elsewhere, no renal mass or hydronephrosis. GASTROINTESTINAL TRACT: No evidence of free air, significant intra-abdominal free fluid, bowel obstru ction or abscess. APPENDIX: Normal appendix. LYMPH NODES: No lymphadenopathy. MUSCULOSKELETAL: No acute or suspicious osseous abnormality. ADDITIONAL FINDINGS: 4.5 cm soft tissue lesion in the cervix. IMPRESSION: No acute findings seen to explain clinical history. Slightly irregular rim-enhancing 14 mm lesion inferior pole left kidney is concerning. Recommend none mergent MRI kidneys with contrast for further evaluation. 4.5 cm soft tissue mass in the cervix is indeterminant. Recommend direct visualization for further ev aluation.
--- NOTE | 2024-05-17 13:18 | EDPHYS ---
Physician Documentation [facility] Name: Soraida Zaragoza Age: 48 yrs Sex: Female : 1975 Arrival Date: 05/17/2024 Time: 10:44 Bed 14 Private MD: ED Physician Marek Denton HPI: 05/17 13:17 This 48 yrs old Female presents to ER via Ambulatory with complaints of ms3 Abdominal Pain, Back Pain. 13:17 Soraida Zaragoza, a 48-year-old female, presents to the Emergency Department with a primary ms3 complaint of left upper quadrant abdominal pain persisting for one week. The pain has radiated to the left lower quadrant and now extends to her back. She describes the abdominal pain as crampy and aching, while the pain in her back is characterized as a burning, radiating sensation. She reports having constipation and has experienced nausea over the past week, with vomiting occurring today for the first time. She has not tried any medications for pain relief. Her medical history includes diverticulitis three years ago, with no subsequent episodes, diabetes, high cholesterol, and high blood pressure, for which she is on medication. She also takes a muscle relaxer. Ms. Zaragoza has not observed blood in her stool or vomited blood. She mentions chills and nausea currently. She has a history of gallbladder removal and a tubal ablation.. 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 N/A - , Not ap3 Historical: - Allergies: 10:58 No Known Allergies; cm10 - Home Meds: 10:58 amlodipine 5 mg tablet 1 tab daily [Active]; hydrochlorothiazide 12.5 mg oral tablet 1 cm10 tab daily [Active]; atorvastatin 10 mg oral tablet 1 tab every day at bedtime [Active]; cyclobenzaprine 10 mg oral tablet 1 tab [Active]; meloxicam 15 mg oral tablet 1 tab daily [Active]; pioglitazone 45 mg oral tablet 1 tab daily [Active]; lisinopril 30 mg oral tablet 1 tab daily [Active]; glipizide 10 mg oral tablet 1 tab daily [Active]; Victoza 2-Abdiaziz subcutaneous 1.2 mg [Active]; - PMHx: 10:58 diabetes mellitus; Hypertensive disorder; Diverticulitis; cm10 - PSHx: 10:58 Cholecystectomy; tubal; cm10 - Immunization history:: Adult Immunizations up to date. - Infectious Disease History:: Denies. - Social history:: Smoking status: Patient denies any tobacco usage or history of. ROS: 13:17 Constitutional: Negative for fever, and chills. Cardiovascular: Negative for chest ms3 pain, and palpitations. Respiratory: Negative for shortness of breath, cough, wheezing, and pleuritic chest pain, 13:17 Skin: Negative for injury, rash, and discoloration, 13:17 Abdomen/GI: Positive for abdominal pain, vomiting, Exam: 13:17 Constitutional: This is a well developed, well nourished patient who is awake, alert, ms3 and in no acute distress. Chest/axilla: Normal chest wall appearance and motion. Nontender with no deformity. Cardiovascular: Regular rate and rhythm with a normal S1 and S2. No gallops, murmurs, or rubs. Normal PMI, no JVD. No pulse deficits. Respiratory: Lungs have equal breath sounds bilaterally, clear to auscultation and percussion. No rales, rhonchi or wheezes noted. No increased work of breathing, no retractions or nasal flaring. 13:17 Abdomen/GI: Inspection: abdomen appears normal, Bowel sounds: normal, Palpation: mild abdominal tenderness, in the left upper quadrant and left lower quadrant, Vital Signs: 11:03 BP 164 / 100; Pulse 97; Resp 18; Temp 97.4(TE); Pulse Ox 99% on R/A; Weight 83.01 kg; cm10 Height 4 ft. 11 in. ; Pain 10/10; 11:30 BP 142 / 76; Pulse 90; Resp 15; Pulse Ox 98% ; jl7 14:28 BP 138 / 87; Pulse 89; Resp 17; Temp 98.1; Pulse Ox 98% on R/A; ap3 11:03 Body Mass Index 36.96 (83.01 kg, 149.86 cm) cm10 11:03 Pain Scale: Adult cm10 MDM: 11:21 Medical Screening Exam initiated ms3 13:17 Differential diagnosis: Diverticulitis vs Nephrolithiasis vs Abdominal pain. Data ms3 reviewed: vital signs, nurses notes, lab test result(s), radiologic studies, and as a result, I will discharge patient. I considered the following discharge prescriptions or medication management in the emergency department Medications were administered in the Emergency Department. See MAR. Care significantly affected by the following chronic conditions: Diabetes, Hypertension. Counseling: I had a detailed discussion with the patient and/or guardian regarding the historical points, exam findings, and any diagnostic results supporting the discharge/admit diagnosis, lab results, radiology results, the need for outpatient follow up, to return to the emergency department if symptoms worsen or persist or if there are any questions or concerns that arise at home. Special discussion: Based on the patient's Hx, exam, and Dx evaluation, there is no indication for emergent surgery or inpatient Tx. It is understood by the patient/guardian that if the Sx's persist or worsen they need to return immediately for re-evaluation. ED course: Discussed labs, imaging with patient. Discussed left inferior pole renal lesion recommended outpatient MRI. 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 Patient to follow-up with her primary care physician 2 to 3 days. Patient understands and agrees with plan. All questions were answered. Return precautions discussed include worsening symptoms, or any other concerns. On reevaluation patient symptoms improved, patient is alert and oriented x 4, no apparent distress, nontoxic-appearing, speaking full sentences.. 05/17 11:10 Order name: CBC with Diff; Complete Time: 12:19 ms3 05/17 11:10 Order name: CMP; Complete Time: 12:19 ms3 05/17 11:10 Order name: CT Abd/Pelvis - IV Contrast Only; Complete Time: 13:02 ms3 05/17 11:10 Order name: IV Saline Lock; Complete Time: 11:41 ms3 05/17 11:10 Order name: Labs collected and sent; Complete Time: 11:41 ms3 Administered Medications: 11:38 Drug: Ondansetron IVP 4 mg IVP once; over 2 minutes Route: IVP; Site: right forearm; jl7 14:27 Follow up: Response: No adverse reaction ap3 11:42 Drug: morphine IVP or IV 4 mg IVP once over 4 mins Route: IVP; Infused Over: 4 mins; jl7 Site: right forearm; 14:27 Follow up: Response: No adverse reaction; Pain is decreased ap3 Disposition Summary: 05/17/24 13:17 Discharge Ordered Notes: Location: Home ms3 Condition: Stable ms3 Diagnosis - Left inferior renal pole lesion ms3 - Cervical Mass ms3 - Abdominal pain, unspecified ms3 Followup: ms3 - With: Zhne Mcrae DO - When: 2 - 3 days - Reason: Recheck today's complaints Discharge Instructions: - Discharge Summary Sheet ms3 - Abdominal Pain, Adult ms3 - Incidental Abnormal Radiological Finding ms3 Forms: - Medication Reconciliation Form ms3 - Antibiotic Education ms3 - Prescription Opioid Use ms3 - Patient Portal Instructions ms3 - Leadership Thank You Letter ms3 Signatures: Dispatcher [employer] EDMS Smitha Mares, RN RN jl7 Marek Denton DO DO ms3 Haylee Dial RN RN cm10 Rosmery Joiner RN ap3 Corrections: (The following items were deleted from the chart) 11:03 10:58 Home Meds: Metformin Oral; cm10 cm10 11:10 11:10 CBC+H.LAB.BRZ ordered. EDMS EDMS 11:10 11:10 COMPREHENSIVE METABOLIC PANEL+C.LAB.BRZ ordered. EDMS EDMS 11:10 11:10 Abdomen Pelvis W Con+CT.RAD.BRZ ordered. EDMS EDMS
--- NOTE | 2024-05-17 13:18 | ER ---
Nurse's Notes [facility] Name: Soraida Zaragoza Age: 48 yrs Sex: Female : 1975 Arrival Date: 05/17/2024 Time: 10:44 Bed 14 Private MD: Diagnosis: Left inferior renal pole lesion;Cervical Mass;Abdominal pain, unspecified Presentation: 05/17 11:03 Chief complaint: Patient states: Upper abdominal pain that radiates to LLQ and to back. cm10 Pt also reports indigestion, nausea, and vomiting. Pt states that the pain got worse today. Coronavirus screen: Client denies travel out of the [place] in the last 14 days. Ebola Screen: Patient denies travel to an Ebola-affected area in the 21 days before illness onset. No symptoms or risks identified at this time. Initial Sepsis Screen: Does the patient meet any 2 criteria? No. Patient's initial sepsis screen is negative. Does the patient have a suspected source of infection? No. Patient's initial sepsis screen is negative. Risk Assessment: Do you want to hurt yourself or someone else? Patient reports no desire to harm self or others. Onset of symptoms was May 17, 2024. 11:03 Method Of Arrival: Ambulatory cm10 11:03 Acuity: MIKAEL 3 cm10 Triage Assessment: 11:05 General: Appears in no apparent distress. uncomfortable, Behavior is calm, cooperative. cm10 Neuro: No deficits noted. Level of Consciousness is awake, alert, obeys commands, Oriented to person, place, time, situation, Appropriate for age. Respiratory: No deficits noted. Airway is patent Respiratory effort is even, unlabored, Respiratory pattern is regular, symmetrical. GI: Abdomen is tender to palpation in left upper quadrant and left lower quadrant Reports lower abdominal pain, upper abdominal pain, indigestion, nausea, vomiting. Musculoskeletal: No deficits noted. Range of motion: intact in all extremities. 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 - , Not ap3 Historical: - Allergies: 10:58 No Known Allergies; cm10 - Home Meds: 10:58 amlodipine 5 mg tablet 1 tab daily [Active]; hydrochlorothiazide 12.5 mg oral tablet 1 cm10 tab daily [Active]; atorvastatin 10 mg oral tablet 1 tab every day at bedtime [Active]; cyclobenzaprine 10 mg oral tablet 1 tab [Active]; meloxicam 15 mg oral tablet 1 tab daily [Active]; pioglitazone 45 mg oral tablet 1 tab daily [Active]; lisinopril 30 mg oral tablet 1 tab daily [Active]; glipizide 10 mg oral tablet 1 tab daily [Active]; Victoza 2-Abdiaziz subcutaneous 1.2 mg [Active]; - PMHx: 10:58 diabetes mellitus; Hypertensive disorder; Diverticulitis; cm10 - PSHx: 10:58 Cholecystectomy; tubal; cm10 - Immunization history:: Adult Immunizations up to date. - Infectious Disease History:: Denies. - Social history:: Smoking status: Patient denies any tobacco usage or history of. Screenin:30 [facility] ED Fall Risk Assessment (Adult) History of falling in the last 3 months, jl7 including since admission No falls in past 3 months (0 pts) Confusion or Disorientation No (0 pts) Intoxicated or Sedated No (0 pts) Impaired Gait No (0 pts) Mobility Assist Device Used No (0 pt) Altered Elimination No (0 pt) Score/Fall Risk Level 0 - 2 = Low Risk Oriented to surroundings, Maintained a safe environment. Abuse screen: Denies threats or abuse. Denies injuries from another. Nutritional screening: No deficits noted. Tuberculosis screening: No symptoms or risk factors identified. Assessment: 11:30 General: Appears in no apparent distress. uncomfortable, Behavior is calm, cooperative, jl7 appropriate for age. Pain: Complains of pain in left upper quadrant and left lower quadrant Pain currently is 8 out of 10 on a pain scale. Neuro: Level of Consciousness is awake, alert, obeys commands, Oriented to person, place, time, situation. Cardiovascular: Patient's skin is warm and dry. Respiratory: Airway is patent Respiratory effort is even, unlabored, Respiratory pattern is regular, symmetrical. GI: Abdomen is non-distended. Derm: Skin is pink, warm \T\ dry. Vital Signs: 11:03 BP 164 / 100; Pulse 97; Resp 18; Temp 97.4(TE); Pulse Ox 99% on R/A; Weight 83.01 kg; cm10 Height 4 ft. 11 in. ; Pain 10/10; 11:30 BP 142 / 76; Pulse 90; Resp 15; Pulse Ox 98% ; jl7 14:28 BP 138 / 87; Pulse 89; Resp 17; Temp 98.1; Pulse Ox 98% on R/A; ap3 11:03 Body Mass Index 36.96 (83.01 kg, 149.86 cm) cm10 11:03 Pain Scale: Adult cm10 ED Course: 10:46 Patient arrived in ED. mr 10:55 Marek Denton DO is Attending Physician. ms3 11:05 Triage completed. cm10 11:05 Arm band placed on right wrist. Patient placed in an exam room, on a stretcher. cm10 11:30 Patient has correct armband on for positive identification. Placed in gown. Bed in low jl7 position. Call light in reach. Side rails up X 1. Provided Education on: use of call smith. Pulse ox on. NIBP on. 11:40 Missed attempt(s): 20 gauge in right antecubital area. Bleeding controlled, band aid jl7 applied, catheter tip intact. 11:41 Smitha Mares RN is Primary Nurse. jl7 11:45 Initial lab(s) drawn, by or, sent to lab. Inserted saline lock: 22 gauge in right jl7 forearm, using aseptic technique. Blood collected. Flushed with 10 mL NS. 12:29 CT Abd/Pelvis - IV Contrast Only In Process Unspecified. EDMS 12:42 Primary Nurse role handed off by Smitha Mares RN jl7 13:16 Zhen Mcrae DO is Referral Physician. ms3 14:28 No provider procedures requiring assistance completed. IV discontinued, intact, ap3 bleeding controlled, No redness/swelling at site. Pressure dressing applied. Administered Medications: 11:38 Drug: Ondansetron IVP 4 mg IVP once; over 2 minutes Route: IVP; Site: right forearm; jl7 14:27 Follow up: Response: No adverse reaction ap3 11:42 Drug: morphine IVP or IV 4 mg IVP once over 4 mins Route: IVP; Infused Over: 4 mins; jl7 Site: right forearm; 14:27 Follow up: Response: No adverse reaction; Pain is decreased ap3 Medication: 11:30 VIS not applicable for this client. jl7 Outcome: 13:17 Discharge ordered by MD. ms3 14:28 Discharged to home ambulatory, ap3 14:28 Condition: good 14:28 Discharge instructions given to patient, Instructed on discharge instructions, follow up and referral plans. Demonstrated understanding of instructions, follow-up care, 14:29 Patient left the ED. ap3 Signatures: Dispatcher [employer] EDAwilda Win, Reg Reg mr MaresSmitha, RN RN jl7 Rosmery Joiner RN RN ap3 Marek Denton DO DO ms3 Haylee Dial RN RN cm10 Corrections: (The following items were deleted from the chart) 11:03 10:58 Home Meds: Metformin Oral; cm10 cm10
[2024-05-17 14:56] VITALS: O2SAT 98
[2024-05-17 14:58] VITALS: BP 138/87; TEMP 98.1
== END 2024-05-17 14:29 | disposition home or self-care (01) ==
LOC: ER 10:44
DX: N28.9 Disorder of kidney and ureter, unspecified (principal); N88.8 Other specified noninflammatory disorders of cervix uteri; E11.9 Type 2 diabetes mellitus without complications; I10 Essential (primary) hypertension
CPT/HCPCS: 85025; 36415; 80053; 74177; 96375; 96374; 99284; Q9967; J2405